=== PATIENT | female | born 1950 | race Caucasian/White ===

== ENCOUNTER → 2017-08-30 08:06 | Outpatient (CLI) | payer MEDICARE, OTHER, SELFPAY ==
--- NOTE | 2017-08-30 08:11 | BI_ITS ---
MAMMOGRAPHY - BILATERAL SCREENING REASON FOR EXAM: Female, 66 years old. Routine annual screening examination. PERTINENT HISTORY: NO FM HX , LOST 22#, LT UIQ BRUISE 1.25 YRS AGO TECHNIQUE: Digital bilateral breast isidro (3D mammographic acquisition) in the CC and MLO projections. 2-D mediolateral oblique (MLO) and craniocaudad (CC) views of both breasts were obtained. CAD: Full Field Digital Mammography with Computer Added Detection was performed. COMPARISON: 07/30/2016, 07/21/2015, 07/19/2014 FINDINGS: Breast Composition: There are scattered areas of fibroglandular density. There are no dominant masses or suspicious calcifications. No other significant abnormalities are identified. BI/SCREENING MAMM (CAD), BILAT IMPRESSION: Stable bilateral screening mammogram. Yearly follow-up mammogram recommended. (A) ASSESSMENT CATEGORY: BIRADS Category 2: Benign. A letter regarding these results will be sent to the patient by the facility within 30 days. Approximately 10% of breast cancers are not detected by mammography. A normal mammogram should not delay biopsy of a clinically suspicious abnormality. [id number] Electronically Signed: Ginette Price MD at 12:30 EDT Tel , Service support ,
== END ==
PROVIDERS: Family Provider Family Medicine; PCP Family Medicine; Visit Provider Obstetrics & Gynecology
DX: Z12.31 Encounter for screening mammogram for malignant neoplasm of breast (principal)
CPT/HCPCS: 77063; 77067

== ENCOUNTER → 2018-03-05 09:05 | Outpatient (CLI) | payer MEDICARE, OTHER, SELFPAY ==
--- NOTE | 2018-03-05 09:11 | BI_ITS ---
MAMMOGRAPHY - UNILATERAL DIAGNOSTIC: RIGHT BREAST REASON FOR EXAM: Female, 67 years old. Right breast discomfort for 4 weeks. PERTINENT HISTORY: Non-contributory. TECHNIQUE: Digital unilateral breast isidro (3D mammographic acquisition) in the CC and MLO projections. 2-D mediolateral oblique (MLO) and craniocaudad (CC) views of both breasts were obtained. CAD: Full Field Digital Mammography with Computer Added Detection was performed. COMPARISON: Comparison is made with prior study dated August 30, 2017 and July 30, 2016. FINDINGS: Breast Composition: There are scattered areas of fibroglandular density. There are no dominant masses or suspicious calcifications. Stable small right axillary lymph nodes. No other significant abnormalities are identified. There has been no significant change since the prior study. BI/DIAG MAMM W/CAD, UNILAT IMPRESSION: Stable unilateral diagnostic mammogram. With the patient's history of right breast discomfort, correlation with ultrasound is recommended. ASSESSMENT CATEGORY: BIRADS Category 0: Incomplete. Need additional imaging evaluation. A letter regarding these results will be sent to the patient by the facility within 30 days. Approximately 10% of breast cancers are not detected by mammography. A normal mammogram should not delay biopsy of a clinically suspicious abnormality. Electronically Signed: Indio Carrera MD at 12:29 EST Tel [phone], Service support ,
--- NOTE | 2018-03-05 10:28 | US_ITS ---
STUDY: ULTRASOUND BREAST - RIGHT REASON FOR EXAM: Female, 67 years old. Pain in the right breast. TECHNIQUE: Axial and longitudinal images of the RIGHT breast were performed with a high resolution ultrasound transducer. COMPARISON: Comparison is made with prior mammogram done earlier today. FINDINGS: RIGHT Breast: The upper lateral aspect of the right breast was examined by ultrasound. There is homogeneous fibroglandular tissue. No solid or cystic mass lesion is seen. US/Breast Limited Unilateral IMPRESSION: Unremarkable sonographic examination of the upper outer quadrant of the right breast. ASSESSMENT CATEGORY: BIRADS Category 1: Negative. A letter regarding these results will be sent to the patient by the facility within 30 days. Electronically Signed: Indio Carrera MD at 12:13 EST Tel [phone], Service support ,
--- OUTSIDE RECORDS SUMMARY | 2018-04-30 14:55 | XMS RPT_ITS ---
:1950 Author Organization [facility] Care Team Providers Name Role Phone SULAIMAN YOUNG DO D Attending Unavailable HECTOR DO, SULAIMAN D Primary Care Unavailable HECTOR DO SULAIMAN D Attending Unavailable HECTOR DO, SULAIMAN D Primary Care Unavailable HECTOR DO SULAIMAN D Attending Unavailable HECTOR DO, SULAIMAN D Primary Care Unavailable HECTOR DO SULAIMAN D Attending Unavailable HECTOR DO, SULAIMAN D Primary Care Unavailable HECTOR DO, SULAIMAN D Attending Unavailable HECTOR DO, SULAIMAN D Primary Care Unavailable CANELO ROWELL, DR. LUIS ALBERTO Serrato Attending Unavailable HECTOR DO, SULAIMAN D Primary Care Unavailable Laura Araujo Attending Unavailable Laura Araujo Referring Unavailable Hector Sulaiman Primary Care Unavailable Laura Araujo Attending Unavailable Hector, Sulaiman Primary Care Unavailable PROBLEMS PROBLEMS DATE TYPE CONDITION / CODE ATTENDING STATUS SOURCE 03/05/2018 Unknown N64.4 - Laura Araujo Active [facility] Mastodynia / Community N64.4(ICD-10) Hospital Repository 10/03/2017 Admitting Frequency of CANELO ALVA., Active [facility] Diagnosis micturition / DR. LUIS ALBERTO Molina R35.0(ICD-10) Repository 08/30/2017 Unknown Z12.31 - Laura Araujo Active [place] [facility] mammogram for Repository malignant neoplasm of breast / Z12.31(ICD-10) PROCEDURES PROCEDURES No Procedure Records FoundRESULTS RESULTS BREAST LIMITED Observed: 03/05/2018 Status: F Source: [place] UNILATERAL 10:28 AM [facility] H[facility]PITAL REPOSITORY [facility] Imaging Services [address] [place] [address] Breast Limited Unilateral MR#: [id number] Acct: [id number] Name: ROSALINA NOE Rep #: [id number] : 1950 F 67 From: Indio Carrera MD PCP: Sulaiman Young DO Status: REG CLI Study: Breast Limited Unilateral Date of Exam: 03/05/18 Exam# [id number] Ordering Dr: Laura Araujo MD STUDY: ULTRASOUND BREAST - RIGHT REASON FOR EXAM: Female, 67 years old. Pain in the right breast. TECHNIQUE: Axial and longitudinal images of the RIGHT breast were performed with a high resolution ultrasound transducer. COMPARISON: Comparison is made with prior mammogram done earlier today. FINDINGS: RIGHT Breast: The upper lateral aspect of the right breast was examined by ultrasound. There is homogeneous fibroglandular tissue. No solid or cystic mass lesion is seen. US/Breast Limited Unilateral IMPRESSION: Unremarkable sonographic examination of the upper outer quadrant of the right breast. ASSESSMENT CATEGORY: BIRADS Category 1: Negative. A letter regarding these results will be sent to the patient by the facility within 30 days. Electronically Signed: Indio Carrera MD at 12:13 EST Tel [phone], Service support , CC: Sulaiman Young DO; Laura Araujo MD Polisher And Buffer: Signed DIAG MAMM W/CAD, Observed: 03/05/2018 Status: F Source: DUSTIN UNILAT 9:12 AM [facility] REPOSITORY [facility] Imaging Services [address] [place] [address] DIAG MAMM W/CAD, UNILAT MR#: [id number] Acct: [id number] Name: ROSALINA NOE Rep #: [id number] : 1950 F 67 From: Indio Carrera MD PCP: Sulaiman Young DO Status: REG CLI Study: DIAG MAMM W/CAD, UNILAT Date of Exam: 03/05/18 Exam# [id number] Ordering Dr: Laura Araujo MD MAMMOGRAPHY - UNILATERAL DIAGNOSTIC: RIGHT BREAST REASON FOR EXAM: Female, 67 years old. Right breast discomfort for 4 weeks. PERTINENT HISTORY: Non-contributory. TECHNIQUE: Digital unilateral breast isidro (3D mammographic acquisition) in the CC and MLO projections. 2-D mediolateral oblique (MLO) and craniocaudad (CC) views of both breasts were obtained. CAD: Full Field Digital Mammography with Computer Added Detection was performed. COMPARISON: Comparison is made with prior study dated August 30, 2017 and July 30, 2016. FINDINGS: Breast Composition: There are scattered areas of fibroglandular density. There are no dominant masses or suspicious calcifications. Stable small right axillary lymph nodes. No other significant abnormalities are identified. There has been no significant change since the prior study. BI/DIAG MAMM W/CAD, UNILAT IMPRESSION: Stable unilateral diagnostic mammogram. With the patient's history of right breast discomfort, correlation with ultrasound is recommended. ASSESSMENT CATEGORY: BIRADS Category 0: Incomplete. Need additional imaging evaluation. A letter regarding these results will be sent to the patient by the facility within 30 days. Approximately 10% of breast cancers are not detected by mammography. A normal mammogram should not delay biopsy of a clinically suspicious abnormality. Electronically Signed: Indio Carrera MD at 12:29 EST Tel [phone], Service support , CC: Sulaiman Young DO; Laura Araujo MD Polisher And Buffer: Signed Observed: 10/03/2017 Status: F Source: [facility] 2:38 PM FOUNDATION REPOSITORY . MICRO - Microbiology PROCEDURE: Urine Culture [*1] SOURCE: Urine BODY SITE: COLLECTED DATE/TIME: 10/03/2017 14:38 EDT RECEIVED DATE/TIME: 10/03/2017 20:52 EDT START DATE/TIME: 10/03/2017 20:53 EDT FREE TEXT SOURCE: FINAL REPORTS Final Report [] Verified Date/Time/Personnel: 10/05/2017 08:27 EDT No growth at 48 hours. PRELIMINARY REPORTS Preliminary Report [] Verified Date/Time/Personnel: 10/04/2017 08:22 EDT No growth to date Performing Locations *1: This test was performed at: [facility], [address] [place] [address], [address] , [facility] Performed By: #### CUR #### [address] [address] SCREENING MAMM (CAD), Observed: 08/30/2017 Status: F Source: DUSTIN BILAT 8:12 AM [facility] REPOSITORY [facility] Imaging Services [address] [place] [address] SCREENING MAMM (CAD), BILAT MR#: [id number] Acct: [id number] Name: ROSALINA NOE Rep #: [id number] : 1950 F 66 From: Ginette Price MD PCP: Sulaiman Young DO Status: REG CLI Study: SCREENING MAMM (CAD), BILAT Date of Exam: 08/30/17 Exam# [id number] Ordering Dr: Laura Araujo MD MAMMOGRAPHY - BILATERAL SCREENING REASON FOR EXAM: Female, 66 years old. Routine annual screening examination. PERTINENT HISTORY: NO FM HX , LOST 22#, LT UIQ BRUISE 1.25 YRS AGO TECHNIQUE: Digital bilateral breast isidro (3D mammographic acquisition) in the CC and MLO projections. 2-D mediolateral oblique (MLO) and craniocaudad (CC) views of both breasts were obtained. CAD: Full Field Digital Mammography with Computer Added Detection was performed. COMPARISON: 07/30/2016, 07/21/2015, 07/19/2014 FINDINGS: Breast Composition: There are scattered areas of fibroglandular density. There are no dominant masses or suspicious calcifications. No other significant abnormalities are identified. BI/SCREENING MAMM (CAD), BILAT IMPRESSION: Stable bilateral screening mammogram. Yearly follow-up mammogram recommended. (A) ASSESSMENT CATEGORY: BIRADS Category 2: Benign. A letter regarding these results will be sent to the patient by the facility within 30 days. Approximately 10% of breast cancers are not detected by mammography. A normal mammogram should not delay biopsy of a clinically suspicious abnormality. [id number] Electronically Signed: Ginette Price MD at 12:30 EDT Tel , Service support , CC: Sulaiman Young DO; Laura Araujo MD Polisher And Buffer: Signed LIPID Collected: 08/22/2017 Status: F Source: [employer] 7:29 AM [facility] REPOSITORY TYPE CODE TESTS RESULT OUT OF REFERENCE UNITS RANGE LAB CHOL(LOINC 131-200 mg/dL ) Low Cholesterol 115 Result Comment: Cholesterol Reference Interval: Less than 200 Desirable 200-239 Borderline high risk 240 and above High risk LAB TRIG(LOINC) 40-150 mg/dL Triglycerides 89 Result Comment: Triglyceride Reference Interval: Less than 150 Normal 150-199 Borderline high risk 200-499 High risk 500 or higher Very high risk LAB HD(LOINC) 35-90 mg/dL HDL Cholesterol 53 Result Comment: HDL Reference Interval: Less than 40 Low - high risk 60 or above Optimal/lowers risk LAB LDL(LOINC) 0-130 mg/dL LDL Cholesterol 44 Result Comment: LDL is a calculated result and requires a 12-hr fast. LDL Reference Interval: Less than 100 Optimal 100-129 Near or above optimal 130-159 Borderline high risk 160-189 High risk 190 and above Very high risk Performed By: #### LIPID, CMP, GFR #### [address] [address] CMP Collected: 08/22/2017 Status: F Source: [employer] 7:29 AM [facility] REPOSITORY TYPE CODE TESTS RESULT OUT OF REFERENCE UNITS RANGE LAB GLU(LOINC) 80-115 mg/dL Glucose High Level 166 LAB NA(LOINC) 136-146 mEq/L Sodium Level 136 LAB K(LOINC) 3.5-5.1 mEq/L Potassium Level 4.4 LAB CL(LOINC) 98-107 mEq/L Chloride 104 LAB CO2(LOINC) 23-31 mEq/L CO2 27 LAB EBAL(LOINC mEq/L ) Electrolyte Balance 5.0 LAB BUN(LOINC) 7.0-18.0 mg/dL BUN 12.7 LAB CRE(LOINC) 0.6-1.2 mg/dL Creatinine Lvl (s) 0.7 LAB BC(LOINC) 7-27 ratio BUN/Creatinine 18 Ratio LAB CA(LOINC) 8.4-10.2 mg/dL Calcium Lvl 10.0 LAB PROT(LOINC 6.0-8.3 G/dL ) Total Protein 6.4 LAB ALB(LOINC) 3.4-4.8 G/dL Albumin Level 4.2 LAB GLB(LOINC) G/dL Globulin 2.2 LAB AG(LOINC) 1.1-2.5 ratio A/G Ratio 1.9 LAB BILT(LOINC 0.2-1.0 mg/dL ) Bili Total 0.5 LAB AP(LOINC) 40-135 IU/L Alk Phos 67 LAB AST(LOINC) 10-40 IU/L AST/SGOT 16 LAB ALT(LOINC) 10-35 IU/L ALT/SGPT 11 Performed By: #### LIPID, CMP, GFR #### [address] [place], [place] [address] .GFR Collected: 08/22/2017 Status: F Source: COLT [employer] 7:29 AM FOUNDATION REPOSITORY TYPE CODE TESTS RESULT OUT OF REFERENCE UNITS RANGE LAB GFRAA(LOINC ml/min/1.73 ) sqm GFR 95 [place] Result Comment: GFR Population mean for , Non- Americans Ages 20-29 = 116 mL/min/1.73 sq.m. Ages 30-39 = 107 mL/min/1.73 sq.m. Ages 40-49 = 99 mL/min/1.73 sq.m. Ages 50-59 = 93 mL/min/1.73 sq.m. Ages 60-69 = 85 mL/min/1.73 sq.m. Ages 70+ = 75 mL/min/1.73 sq.m. Chronic Kidney Disease: Less than 60 mL/min/1.73 square meters End Stage Renal Disease: Less than 15 mL/min/1.73 square meters LAB GFRNO(LOINC) ml/min/1.73sqm GFR Non- >60 Result Comment: GFR Population mean for , Non- Americans Ages 20-29 = 116 mL/min/1.73 sq.m. Ages 30-39 = 107 mL/min/1.73 sq.m. Ages 40-49 = 99 mL/min/1.73 sq.m. Ages 50-59 = 93 mL/min/1.73 sq.m. Ages 60-69 = 85 mL/min/1.73 sq.m. Ages 70+ = 75 mL/min/1.73 sq.m. Chronic Kidney Disease: Less than 60 mL/min/1.73 square meters End Stage Renal Disease: Less than 15 mL/min/1.73 square meters Performed By: #### LIPID, CMP, GFR #### [facility] [place] [address] [place], [place] [address] ALLERGIES ALLERGIES No Allergies Records FoundENCOUNTERS ENCOUNTERS ADMIT/DISCHARGE ACCOUNT NUMBER ADMITTING ENCOUNTER LOCATION SOURCE CLASS 03/05/2018 [id number] [facility] ding:OPBI Repository 10/03/2017/10/08/19 [id number] Ambulatory [facility] [address] [place] [address] ding:OLAB [facility] Repository 08/30/2017 [id number] Ambulatory [facility] ding:OPBI Repository 08/22/2017/08/23/19 [id number] Ambulatory [facility] [address] [place] [address] ding:DROP [facility] Repository 08/19/2017/08/20/19 [id number] Ambulatory [facility] [address] [place] [address] ding:DVST [facility] Repository 08/12/2017/08/13/19 [id number] Ambulatory [facility] [address] [place] [address] ding:DVST [facility] Repository 08/05/2017/08/06/19 [id number] Ambulatory [facility] [address] [place] [address] ding:DVST [facility] Repository 07/29/2017/07/30/19 [id number] Ambulatory [facility] [address] [place] [address] ding:DVST [facility] Repository PAYERS PAYERS ENCOUNTER GUARANTOR PAYER SUBSCRIBER SOURCE 03/05/2018 ROSALINA A Primary ROSALINA A [place] [id number] Insurance:[facility] [place] PART A BPolicy [id number] Number: Repository [address]Iue: [phone] [id number] [phone] () Date:2018-02-25 03/05/2018 Secondary ROSALINA A [place] Insurance:[facility] BECKETTDOB: [facility] FARMPolicy Number: [id number] Hospital [id number] Repository Date:[id number] [address] [place] [address]BA: 03/05/2018 Tertiary NOT GIVENUNK Dust[place] Insurance:SELF PAY [facility] Number: Effective Repository Date:2018-02-25 10/03/2017 ROSALINA A Primary ROSALINA A [facility] BECKETTDOB: Insurance:MEDICARE BECKETTDOB: [facility] PART BPolicy Number: [id number] Repository OGDEN [id number] [place], [place] Date:2017-10-03 - [place], [place] [address]Oaf: [phone] [id number] [id number]: Name:[address] (HP)Tel: [phone] Aaazoypzgykgdu LLCPO () (WP) [address] [address], 0000000 (WP) [place] [address]SG: 10/03/2017 Secondary ROSALINA A [facility] Number: [id number] Repository [id number] [place] Date:2017-10-03 - [place], [place] [id number] [address]Dbv: ([phone]) Name:[facility] [phone] [id number], [place] ()Tel: [phone]: (WP) [phone] 08/30/2017 ROSALINA A Primary ROSALINA A [place] [id number] Insurance:MEDICARE BECKETTDOB: [facility] DANVERS PART A BPolicy [id number], [place] Number: Repository [address]Fot: 330 [id number] [phone] () Date:2017-08-13 08/30/2017 Secondary ROSALINA A [place] Insurance[facility]: [facility] Number: [id number] Hospital [id number] Repository Date:[id number] [address] [place] [address]JW: 08/30/2017 Tertiary NOT GIVENUNK [place] Insurance:SELF PAY [facility] Number: Effective Repository Date:2017-08-13 08/22/2017 ROSALINA A Primary ROSALINA A [facility] BECKETTDOB: Insurance:MEDICARE BECKETTDOB: [facility] PART BPolicy Number: [id number] Repository [place] [id number], [place] Date:2017-08-22 [place], [place] [address]Tvs: [id number] [address]Zft: Name:[address] (HP)Tel: ([phone]) Administrators LLCPO (HP) (WP) [address] [address]Fyorkwbep, 000-0000 (WP) [place] [address]HY: 08/22/2017 Secondary ROSALINA A [facility] Insurance:[facility] Number: [id number] Repository [id number] O[place] Date:2017-08-22 [place], [place] [id number] [address]Dwg: ([phone]) Name:[facility] [phone] 690944Yzztet, [place] (HP)Tel: [phone]: (WP) [phone] 08/19/2017 ROSALINA A Primary ROSALINA A [facility] BECKETTDOB: Insurance:[facility]ICARE [facility]: [facility] PART BPolicy Number: [id number] Repository [place]GDEN [id number], [place] Date:2017-07-30 [place], [place] [address]Cmn: ([id number] [address]Hnh: Name:[facility] [phone] (HP)Tel: ([phone]) Administrators LLCPO (HP) (WP) [address] [address]Pyzotjnkd, 000-0000 (WP) [place] [address]QV: 08/19/2017 Secondary ROSALINA A [facility] Insurance:[facility] Number: [id number] Repository [id number] DANVERS Date:2017-07-30 [place], [place] [id number] [address]Abf: ([phone]) Name:[facility] Vivian [phone] 359[address]Wqtnez, [place] ()Tel: [phone]: [phone] 08/12/2017 ROSALINA A Primary ROSALINA A [facility] BECKETTDOB: Insurance:MEDICARE BECKETTDOB: [facility] PART BPolicy Number: [id number] Repository DAN[place] [id number], [place] Date:2017-07-30 [place], [place] [address]Aat: [phone] [id number] [address]Zak: Name:[address] ()Tel: ([phone]) Administrators LLCPO (HP) () [address] [address]Fjhkemjxc, 000-0000 () [place] [address]LC: 08/12/2017 Secondary [facility] BECKETTDOB: [facility] FARMPolicy Number: [id number] Repository [id number] O[place] Date:2017-07-30 [place], [place] 9518-53-05Lekz [address]Ifp: ([phone]) Name:[facility] Vivian [phone] 2895[address]Nxxova, [place] ()Tel: [phone]: () [phone] 08/05/2017 ROSALINA A [facility]: Insurance:MEDICARE BECKETTDOB: [facility] PART BPolicy Number: [id number] Repository DANVERS [id number], [place] Date:2017-07-30 [place], [place] [address]Hcp: [phone] [id number] [address]Jsl: Name:[address] ()Tel: ([phone]) Administrators LLCPO (HP) (WP) [address] [address]Hnfeqnkvy, 000-0000 (WP) [place] [address]IA: 08/05/2017 Secondary SLATER A [facility]: [id number] Repository [id number] DANVERS Date:2017-07-30 [place], [place] 5417-23-02Wbbn [address]Hru: ([phone]) Name:[address] [place] [address] (HP)Tel: [phone]: (WP) [phone] 07/29/2017 ROSALINA A Primary [facility] Insurance:MEDICARE BECKETTDOB: Foundation PART BPolicy Number: [id number] Repository DANVERS [id number] [place], [place] Date:2017-07-22 [place], [place] [address]Abu: ([phone] [id number] [phone]: Name:[facility] 6[address] (HP)Tel: ([phone]) Administrators LLCPO (HP) (WP) [address] [address]Jmrjbrwdn, 000-0000 (WP) [place] [address]WD: 07/29/2017 Secondary SLATER A [facility]: [id number] Repository [id number] OGDEN Date:2017-07-22 [place], [place] 4795-59-29Pumc [address]Kgn: ([phone]) Name:[facility] [phone] [id number], [place] (HP)Tel: [phone]: (WP) [phone]
== END ==
PROVIDERS: Family Provider Family Medicine; PCP Family Medicine; Visit Provider Obstetrics & Gynecology
DX: N64.4 Mastodynia (principal)
CPT/HCPCS: 76642; 77061; 77065; G0279

== ENCOUNTER → 2018-09-02 08:03 | Outpatient (CLI) | payer MEDICARE, OTHER, SELFPAY ==
--- NOTE | 2018-09-02 08:07 | BI_ITS ---
MAMMOGRAPHY - BILATERAL SCREENING REASON FOR EXAM: Female, 67 years old. Routine annual screening examination. PERTINENT HISTORY: Non-contributory. TECHNIQUE: Digital bilateral breast isidro (3D mammographic acquisition) in the CC and MLO projections. 2-D mediolateral oblique (MLO) and craniocaudad (CC) views of both breasts were obtained. CAD: Full Field Digital Mammography with Computer Added Detection was performed. COMPARISON: Comparison is made with prior study dated August 30, 2017 and July 30, 2016. FINDINGS: Breast Composition: There are scattered areas of fibroglandular density. There are no dominant masses or suspicious calcifications. Stable asymmetry of breast tissue when more breast tissue seen in the upper outer quadrant of the right breast as compared to the left side. No other significant abnormalities are identified. There has been no significant change since the prior study. BI/SCREENING MAMM (CAD), BILAT IMPRESSION: Stable bilateral screening mammogram. Yearly follow-up mammogram recommended. (A) ASSESSMENT CATEGORY: BIRADS Category 2: Benign. A letter regarding these results will be sent to the patient by the facility within 30 days. Approximately 10% of breast cancers are not detected by mammography. A normal mammogram should not delay biopsy of a clinically suspicious abnormality. [id number] Electronically Signed: Indio Carrera, at 13:44 EDT , Service support ,
== END ==
PROVIDERS: Family Provider Family Medicine; PCP Family Medicine; Referring Provider Obstetrics & Gynecology; Visit Provider Obstetrics & Gynecology
DX: Z12.31 Encounter for screening mammogram for malignant neoplasm of breast (principal)
CPT/HCPCS: 77063; 77067

== ENCOUNTER → 2019-10-13 10:37 | Outpatient (CLI) | payer MEDICARE, OTHER, SELFPAY ==
--- NOTE | 2019-10-13 10:42 | BI_ITS ---
MAMMOGRAPHY - BILATERAL SCREENING REASON FOR EXAM: Female, 69 years old. Routine annual screening examination. PERTINENT HISTORY: Non-contributory. TECHNIQUE: Digital bilateral breast glen (3D mammographic acquisition) in the CC and MLO projections. 2-D mediolateral oblique (MLO) and craniocaudad (CC) views of both breasts were obtained. CAD: Full Field Digital Mammography with Computer Added Detection was performed. COMPARISON: Comparison is made with prior study dated September 02, 2018 and March 05, 2018. FINDINGS: Breast Composition: The breasts are almost entirely fatty. There are no dominant masses or suspicious calcifications. Stable asymmetry of breast tissue where more breast tissue is seen in the upper outer quadrant of the right breast as compared to the left side. No other significant abnormalities are identified. There has been no significant change since the prior study. BI/SCREEN MAMM (CAD) W/GLEN BILAT IMPRESSION: Stable bilateral screening mammogram. Yearly follow-up mammogram recommended. (A) ASSESSMENT CATEGORY: BIRADS Category 2: Benign. A letter regarding these results will be sent to the patient by the facility within 30 days. Approximately 10% of breast cancers are not detected by mammography. A normal mammogram should not delay biopsy of a clinically suspicious abnormality. [id number] Electronically Signed: Indio Carrera, at 12:16 EDT , Service support ,
== END ==
PROVIDERS: PCP Student in an Organized Health Care Education/Training Program; Referring Provider Student in an Organized Health Care Education/Training Program; Visit Provider Student in an Organized Health Care Education/Training Program
DX: Z12.31 Encounter for screening mammogram for malignant neoplasm of breast (principal)
CPT/HCPCS: 77063; 77067

== ENCOUNTER → 2020-10-18 15:06 | Outpatient (CLI) | payer MEDICARE, OTHER, SELFPAY ==
--- NOTE | 2020-10-18 15:10 | BI_ITS ---
MAMMOGRAPHY - BILATERAL SCREENING REASON FOR EXAM: Female, 70 years old. Routine annual screening examination. PERTINENT HISTORY: Non-contributory. TECHNIQUE: Digital bilateral breast glen (3D mammographic acquisition) in the CC and MLO projections. 2-D mediolateral oblique (MLO) and craniocaudad (CC) views of both breasts were obtained. CAD: Full Field Digital Mammography with Computer Added Detection was performed. COMPARISON: Comparison is made with prior study dated 10/13/2019 and 09/02/2018. FINDINGS: Breast Composition: The breasts are almost entirely fatty. There are no dominant masses or suspicious calcifications. Once again, there is stable asymmetry of breast tissue where more breast tissue is seen in the upper outer quadrant of the right breast as compared to the left side. There is a 1.7 cm lymph node in the right axillary region. No other significant abnormalities are identified. There has been no significant change since the prior study. BI/SCRN MAMM (CAD)W/GLEN BILAT IMPRESSION: Stable bilateral screening mammogram. Yearly follow-up mammogram recommended. (A) ASSESSMENT CATEGORY: BIRADS Category 2: Benign. A letter regarding these results will be sent to the patient by the facility within 30 days. Approximately 10% of breast cancers are not detected by mammography. A normal mammogram should not delay biopsy of a clinically suspicious abnormality. [id number] Electronically Signed: Indio Carrera MD at 8:30 EDT , Service support ,
--- NOTE | 2020-10-18 15:23 | BD_ITS ---
STUDY: DUAL ENERGY X-RAY ABSORPTIOMETRY / DXA REASON FOR EXAM: Female, 70 years old. OSTEO. Patient is postmenopausal. TECHNIQUE: Bone Mineral Density (BMD) measurements of lumbar spine and bilateral hips were obtained. COMPARISON: Comparison is made with prior examination dated 07/29/2012. FINDINGS: Lumbar Spine (L1-L4): g/cm2 (1.082) / T-score (0.3) / Z-score (2.3) Findings are suggestive of normal bone density with a low fracture risk. Left Femur Total: g/cm2 (0.641) / T-score (-2.5) / Z-score (-1.0) Left Femoral Neck: g/cm2 (0.657) / T-score (-1.7) / Z-score (0) Right Femur Total: g/cm2 (0.596) / T-score (-2.8) / Z-score (-1.4) Right Femoral Neck: g/cm2 (0.662) / T-score (-1.7) / Z-score (0.1) The T-Scores on the most recent prior examination were: Lumbar Spine (L1-L4): There has been worsening of bone density since the previous examination. Left Femur Total: which represents a worsening of 17.8%. Right Femur Total: which represents a worsening of 24.1%. BD/Dexa Bone Density Study IMPRESSION: The patient is considered osteoporotic as outlined below according to World Lemuel Organization (WHO) criteria with a high fracture risk. There has been worsening of bone density since the previous examination. Reference Information: The T-score is the number of standard deviations above or below the standard which is normal for young adults at their peak bone mineral density. The World Health Organization (WHO) interprets the T-scores as follows: Above -1 Normal bone density Between -1 and -2.5 Osteopenia Equal to / or below -2.5 Osteoporosis As a practical clinical guideline, osteopenia may be graded as follows: Mild -1 through -1.5 Moderate -1.6 through -2.0 Severe -2.1 through -2.4 The Z-score is the number of standard deviations above or below age-matched controls. A Z-score of less than -1.5 would be considered abnormal. References: 1. NIH Osteoporosis and Related Bone Diseases www osteo.org 2. International Society for Clinical Densitometry www iscd.org 3. National Osteoporosis Foundation www nof.org Electronically Signed: Indio Carrera MD at 9:22 EDT , Service support ,
== END ==
PROVIDERS: PCP Student in an Organized Health Care Education/Training Program; Visit Provider Student in an Organized Health Care Education/Training Program
DX: Z12.31 Encounter for screening mammogram for malignant neoplasm of breast (principal); Z13.820 Encounter for screening for osteoporosis; M81.0 Age-related osteoporosis without current pathological fracture; Z78.0 Asymptomatic menopausal state
CPT/HCPCS: 77063; 77067; 77080

== ENCOUNTER → 2020-12-23 14:43 | Outpatient (CLI) | payer MEDICARE, OTHER, SELFPAY ==
[2020-12-23 17:36] LABS: CRP 3.36 mg/L (0.0-3.0)
[2020-12-26 16:08] LABS: Endomysial Antibody IgA Negative (Negative)
[2020-12-26 17:03] LABS: Immunoglobulin A 150 mg/dL (87-352); t-Transglutaminase IgA <2 U/mL (0-3)
== END ==
PROVIDERS: PCP Student in an Organized Health Care Education/Training Program; Referring Provider Internal Medicine Gastroenterology; Visit Provider Internal Medicine Gastroenterology
DX: R10.9 Unspecified abdominal pain (principal); R19.7 Diarrhea, unspecified
CPT/HCPCS: 36415; 82784; 83516; 86140; 86255

== ENCOUNTER → 2021-09-20 | Outpatient (CLI) | payer MEDICARE, OTHER, SELFPAY ==
--- NOTE | 2021-09-20 12:44 | CT_ITS ---
STUDY: CT SCAN OF LOWER EXTREMITY RIGHT. [facility] protocol. REASON FOR EXAM: Female, 70 years old. PRE OP FOR KNEE REPLACEMENT RADIATION DOSAGE (If Supplied By Facility): CTDIvol = ( 19.69 ) mGy, DLP = ( 2529.39 ) mGycm. Individualized dose optimization techniques were used for this CT.? TECHNIQUE: Multiple axial tomographic images of the right lower extremity were obtained without intravenous contrast administration. Coronal and sagittal reconstruction was obtained as well. COMPARISON: None. FINDINGS: Mild degree of joint space narrowing of the hip joint. No bony destruction is seen. Multiple images of the knee joint were obtained. There is a marked degree of joint space narrowing involving the medial compartment of the knee joint with degenerative spur formation of the medial femoral condyle and medial tibial plateau. There is also evidence of degenerative spur formation along the distal lateral femoral condyle. Moderate degree of joint space narrowing and osteoarthritis of the patellofemoral joint. There is a 3.1 cm x 1.6 cm ossification in the posterior popliteal fossa suggestive of a intra-articular loose body or osteochondromatosis. Imaging of the ankle joint was obtained. No significant abnormality is seen. CT/Extremity Lower without Contra IMPRESSION: Marked degree of joint space narrowing with degenerative spur formation along the medial compartment of the knee joint as described. Moderate degree of osteoarthritis of the patellofemoral joint. 3.1 cm x 1.6 cm ossification in the popliteal fossa suggestive of possible loose body versus osteochondromatosis. Electronically Signed: Indio Carrera MD at 13:22 EDT ,
== END | disposition home or self-care (01) ==
LOC: CT 12:27
PROVIDERS: Visit Provider Orthopaedic Surgery
DX: M17.11 Unilateral primary osteoarthritis, right knee (principal)
CPT/HCPCS: 73700

== ENCOUNTER 2021-10-02 15:58 | Observation (INO) | payer MEDICARE, OTHER, SELFPAY ==
[2021-09-20 13:23] LABS: Absolute Lymphocyte Count 1.87 X10^3/uL (0.83-4.51); Absolute Neutrophil Count 5.2 X10^3/uL (2.0-7.7); Basophil# 0.05 X10^3/uL; Basophil% 0.6 % (0-1); Eosinophil# 0.12 X10^3/uL; Eosinophils% 1.5 % (0-5); Hematocrit 40.8 % (37-47); Hemoglobin 13.5 g/dL (12.0-15.0); Lymphocyte # 1.87 X10^3/ul (0.83-4.51); Lymphocyte % 23.7 % (19-41); Mean Corp Hgb Conc 33.1 g/dL (32-36); Mean Corpuscular Hgb 29.9 pg (27.0-32.0); Mean Corpuscular Volume 90.5 fL (81-99); Mean Platelet Vol. 10.2 fl (6.2-12.0); Monocyte# 0.61 X10^3/uL; Monocyte% 7.7 % (0-10); NRBC Flagged by Analyzer 0 % (0-5); Neutrophil # 5.23 X10^3/uL (2.7-7.7); Neutrophil % 66.4 % (47-70); Platelet Count 260 K/mm3 (150-450); RBC Distribution Width CV 12.4 % (11.6-14.6); RBC Distribution Width SD 40.6 fl (35.1-43.9); Red Blood Count 4.51 M/mm3 (4.2-5.4); White Blood Count 7.9 K/mm3 (4.4-11.0)
[2021-09-20 13:40] LABS: Albumin, Serum 3.8 g/dL (3.2-5.0)
[2021-09-20 13:44] LABS: Magnesium 1.6 mg/dL (1.6-2.6)
[2021-09-20 13:50] LABS: Hemoglobin A1c 7.4 % (3.8-5.6)
[2021-10-02] VITALS (11 sets, daily range): BP systolic 99–141; BP diastolic 50–89; PULSE 45–90; RESP 16–18; TEMP 36–36.6; O2SAT 93–100; BMI 34.4
[2021-10-02 07:50] LABS: Bedside Glucose 277 mg/dL (74-106)
[2021-10-02] MEDS: Acetaminophen 500 MG Tablet 1000 MG PO ×2 (08:20→15:51)
[2021-10-02] MEDS: Gabapentin 600 MG Tablet PO (08:20)
[2021-10-02] MEDS: Magnesium 2 GM IV (08:20)
[2021-10-02] MEDS: Insulin Lispro 100 UNIT/ML INSULN.PEN SC (08:21)
[2021-10-02] MEDS: Lactated Ringers 1,000 ML 15 ML IV (08:30)
--- NOTE | 2021-10-02 08:31 | EKG12_ITS ---
Test Reason : PRE-OP Blood Pressure : / mmHG Vent. Rate : 072 BPM Atrial Rate : 105 BPM P-R Int : 154 ms QRS Dur : 084 ms QT Int : 382 ms P-R-T Axes : 071 008 057 degrees QTc Int : 418 ms Sinus tachycardia with Blocked Premature atrial complexes Otherwise normal ECG When compared with ECG of 07-MAR-2001 08:56, Premature atrial complexes are now Present Confirmed by RASHMI ALVA, RUBEN ([id number]), scientific editor [facility] [place] ([id number]) on 10/10/2021 9:40:53 AM Referred By: Faizan Holliday Confirmed By:MARCUS CARABALLO MD
--- NOTE | 2021-10-02 09:24 | RAD_ITS ---
STUDY: X-RAY - RIGHT KNEE REASON FOR EXAM: Female, 71 years old. Post op -- AP and Lateral xray of operative knee in PACU TECHNIQUE: 2 view(s) of the knee. COMPARISON: None. FINDINGS: Normal visualized distal femur. Normal visualized proximal tibia and fibula. Normal proximal tibiofibular articulation. The patient is status post total knee replacement. There is good alignment. Postoperative soft tissue changes. RAD/Knee 1 or 2 Views IMPRESSION: Status post total knee replacement. There is good alignment. Postoperative soft tissue changes. Electronically Signed: Indio Carrera MD at 12:43 EDT ,
[2021-10-02] MEDS: Cefazolin 2 GM in 0.9% Normal Saline 100 ML IV (09:59)
--- NOTE | 2021-10-02 10:00 | KNEE_PTH ---
PATIENT: ROSALINA NOE LOC: MS3 U#:[id number] AGE/SX: 71/F [place] [facility] [place]: Dr. Faizan Holliday DO : 1950 BED: 1 DIS: 10/03/2021 SPEC #: [id number] RECD: 10/02/21 12:20 STATUS: TIANNA RESamantha #: [id number] TONY: 10/02/21 10:[address]: Faizan Holliday DEPT: SURGICAL PATHOLOGY RECD BY: Desirae Casey ENTERED: 10/02/21 13:05 SP TYPE: TOTAL KNEE OTHR DR: Dr. Gabriela Meredith DO Tissues: Knee, NOS Procedures: Decalcification bone/plaque Surgery Specimen Level IV HEADER OPERATION: ERAS, total knee replacement robotic arm assist PRE-OP DIAGNOSIS: Osteoarthritis right knee TISSUE SUBMITTED: Bone and tissue right knee MICROSCOPIC DIAGNOSIS Bone and tissue of right knee, total knee resection: Severe degenerative joint disease. AM:stacie 10/04/2021 MICROSCOPIC DESCRIPTION Slides are reviewed. GROSS DESCRIPTION Received is one container designated bone and soft tissue right knee. The specimen consists of multiple fragments of tello-yellow bone measuring in aggregate 12 x 10 x 4 cm. A piece of bone consistent with loose body is also noted measuring 2.5 x 2 x 1.5 cm. No soft tissue is identified. A number of bony fragments contain articular surfaces consistent with tibial plateau and femoral condyle and displaying prominent osteophyte formation, eburnation, and bone erosion. Operative Supervisor sections are submitted in two cassettes after decalcification. Cassette 1 contains the loose body. / SJ:stacie 10/02/2021 TC:5 CPT: 72615, 46074
[2021-10-02] MEDS: TXA 1000mg in NS100 100ml (IVPB at Incision) 660 MG IV (10:13)
[2021-10-02] MEDS: TXA 1000mg in NS100 100ml (IVPB at Closure) 660 MG IV (11:18)
--- NOTE | 2021-10-02 11:23 | PCM.OPRPT ---
Report of Operation Date of Procedure: 10/02/21 Pre-Operative Diagnosis: OA right knee Post-Operative Diagnosis: same Surgery/Procedure Performed:: Right TKR Description of Surgical Findings:: Report of Operation Date of Procedure: 10/02/2021 Preoperative Diagnosis: [right ] knee primary osteoarthritis Postoperative Diagnosis: [right ] knee primary osteoarthritis Operation: Robotic Assisted Knee Total Arthroplasty, [right ] knee Surgeon: Dr Faizan Holliday DO Electric Car Operator: Maykel Ling PA-C Anesthesia: spinal Anesthesiologist: Tom San M.D. Findings: Stable knee with good patella tracking Specimen(s): Bony cuts Complications: No intraoperative complications Estimated Blood Loss: 20 cc IV Fluids: 1000 cc crystalloid Implants Used: 1. Helio Triathlon press-fit CR size 5 femur 2. [place] Triathlon size 4 tibia 3. 32 mm patella 4. 11 mm CS polyethylene Brief History Operative Indications: [ (71 y/o female) ] with history of [ right ] knee osteoarthrosis with radiographic findings with loss of joint space, osteophyte formation and subchondral sclerosis. Failed conservative measures as mentioned in the H&P. Discussion of total knee arthroplasty as well as risk and benefits were discussed with the patient including but not limited to blood loss, DVTs, PEs, neurovascular damage, general risk of anesthesia including loss of life, and stiffness or instability were also discussed with the patient. Patient demonstrated understanding and was able to sign informed consent. Procedure: On the date of procedure, patient's [ right ] lower extremity was marked in the preoperative area. The patient was then taken back to the operating room where that patient was placed on the table in the supine position. All bony prominences were identified and well-padded. Anesthesia assumed control of the C-spine and airway throughout the remainder of the procedure. A tourniquet was placed on the [right ] upper thigh and the leg was prepped in a sterile fashion. The surgeon then scrubbed at this time. Upon reentering the room, the [right ] lower extremity was draped in a standard orthopedic fashion. A timeout was then called and everyone agreed upon the side, the site, the procedure to be performed, patient's identity and antibiotics given. Esmarch bandage was used to exsanguinate the extremity and the tourniquet was placed up to 250 mmHg with the knee in flexion. A midline skin incision was made and a sharp dissection was taken down through skin, subcutaneous tissue and fat. The standard medial parapatellar incision was made and the patella was subluxed laterally. An appropriate deep MCL release was done and the fat pad was resected. Our attention was then directed to the patella. The patella was everted and a flat resection was made. The knee was then flexed up and 2 femoral pins were placed inside the incision and 2 tibial pins were placed outside the incision in the medial tibia bicortically. Once this was completed, the 2 checkpoints in the femur and tibia were placed. Knee was then flexed up and the bony landmarks were registered. Once the was completed, the knee taken through range of motion and manually stressed allowing us to plan for an appropriate tibial cut. The robotic arm was brought into the field sterilely and checkpoint and saw were registered. Based on the patient's deformity, the tibial cut was made in [ 2 degrees varus ]. At this time, the tensioner was then placed in the joint and ligament tension was checked at 90 degrees and full extension. Based on the patient's ligamentous tension, appropriate adjustments were made to the operative plan and ligament releases were done. Once we were happy with our operative plan with balanced flexion and extension gaps, our attention was directed to the femur. The robot was brought into the field sterilely and registered. Posterior condylar cuts, anterior chamfer cuts and anterior cuts were appropriately made for a [ size 5 ] femur. When these were completed, the saws were switched out in the distal femoral and posterior chamfer cuts were made. Protecting the soft tissue throughout this time. A [size 4 ] base plate was selected. The knee was flexed to 90 degrees and soft tissues and posterior osteophytes were removed from the joint. 40 cc of the periarticular injection was injected into the posterior medial corner of the joint. The appropriate trials were then placed on the femur and tibia. A trial polyethylene was trialed to ensure proper balancing and stability of the knee. The appropriate tibial internal rotation was then marked with a bovie. Our attention was then directed to the patella. The lug holes were drilled and the patella trial was placed. Patellar tracking was checked and deemed appropriate. Once we were happy, lug holes were drilled for the femur and trial components were removed. The tibia was subluxed and pinned into place and the keel was punched and drilled appropriately. Final components were verified and opened. The wound was copiously irrigated with normal saline. The components were impacted into place with the tibia, femur and finally the patella. The trial poly component was placed and the knee was placed in full extension. The tracking, alignment and balance were verified and a [11 mm CS ] polyethylene component was placed. Once the final components were placed an Irrisept lavage was performed and the wound was copiously irrigated with normal saline solution and the periarticular injection was given. the wound was closed in a layer-anand fashion using #1 vicryl interrupted sutures for the arthrotomy, 2-0 interrupted vicryl suture for the subcuticular layer and moris for final skin closure. A sterile compressive dressing was then placed. The patient was then awakened from anesthesia, transferred to the [facility] and transferred to the PACU for recovery. My physician graduate research assistant was a vital part of this case. He was important in appropriate retraction during the case, and protection of soft tissues during bony cuts. His intimate knowledge of the case and my steps aided in safe and expedient completion of the procedure as well as appropriate position of the leg during the case. He was also vital in assisting with closure under my direct supervision. Due to the complexity of this case, robotic arm was used to assist in the surgery to improve accuracy and clinical outcomes. Post-op Plan: DVT ppx; ASA 81 mg BID, thigh high compression stockings Follow up: in office in 2 weeks for wound check PT: to start POD #0 at hospital, outpatient PT should be arranged. Preoperative antibiotic: Clindamycin 900 mg IV Faizan Holliday DO Surgeon: Faizan Holliday magnetic resonance imaging director: Maykel Ling Type of Anesthesia: Spinal Anesthesiologist: Tom San Estimated Blood Loss (mL): 20 cc Fluids Replaced: 1000 cc crystalloid Admit VTE Documentation VTE Present on Admission: No VTE Mechan Device Prophylaxis: SCD's and Thigh High NEVILLE Hose VTE Pharm Prophylaxis ordered?: Yes
[2021-10-02] MEDS: Lactated Ringers 1,000 ML 999 ML IV (11:30)
[2021-10-02 12:10] LABS: Bedside Glucose 120 mg/dL (74-106)
[2021-10-02] MEDS: Lactated Ringers 1,000 ML 125 ML IV (13:02)
[2021-10-02] MEDS: Ondansetron 4 MG/2 ML Vial IV (14:20)
[2021-10-02] MEDS: proMETHazine 25 MG/ML Syringe 12.5 MG IM (15:49)
[2021-10-02] MEDS: Ipratropium Bromide 0.06% NASAL SPRAY 2 SPRAY NASAL ×2 (15:50→21:51)
[2021-10-02] MEDS: hydroCHLOROthiazide 25 MG Tablet PO (15:50)
[2021-10-02] MEDS: Clindamycin 600 MG/50 ML BAG 100 MG IV ×2 (15:50→21:50)
[2021-10-02] MEDS: Calcium Carb/Vitamin D 1 TABLET Tablet PO (17:59)
[2021-10-02] MEDS: Aspirin 81 MG TAB.CHEW PO (17:59)
[2021-10-02] MEDS: metFORMIN (XR) 500 MG Tablet 1000 MG PO (17:59)
[2021-10-02] MEDS: Senna/Docusate Sodium 1 Tablet 2 TABLET PO (21:51)
[2021-10-02] MEDS: Atorvastatin Calcium 10 MG Tablet PO (21:51)
[2021-10-03] MEDS: Acetaminophen 500 MG Tablet 1000 MG PO ×2 (00:57→08:32)
[2021-10-03 01:30] VITALS: BP 101/52; PULSE 72; RESP 16; TEMP 36.2; O2SAT 95
[2021-10-03] MEDS: Clindamycin 600 MG/50 ML BAG 100 MG IV (04:13)
[2021-10-03 06:00] VITALS: BP 97/66; PULSE 79; RESP 16; TEMP 36.5; O2SAT 95
[2021-10-03 06:09] LABS: Hematocrit 33.5 % (37-47); Mean Corp Hgb Conc 32.8 g/dL (32-36); Mean Corpuscular Volume 91.3 fL (81-99); Platelet Count 199 K/mm3 (150-450); RBC Distribution Width CV 12.5 % (11.6-14.6); RBC Distribution Width SD 41.7 fl (35.1-43.9); Red Blood Count 3.67 M/mm3 (4.2-5.4); White Blood Count 10.1 K/mm3 (4.4-11.0)
[2021-10-03 06:37] LABS: Anion Gap 6 (5-15); BUN 11 mg/dL (7-18); BUN/Creat Ratio 12.8 RATIO (10-20); Chloride 104 mmol/L (98-107); Creatinine, Serum 0.86 mg/dL (0.55-1.02); EST Glomerular Filtration Rate 69 mL/min (>60); Est Glom Filt Rate - Afr Amer 84 mL/min (>60); Estimated Creatinine Clearance 59.19 ml/min; Glucose 254 mg/dL (74-106); Sodium Level 136 mmol/L (136-145)
[2021-10-03 07:30] LABS: Bedside Glucose 219 mg/dL (74-106)
--- NOTE | 2021-10-03 07:38 | PCM.PN.ORT ---
Subjective Subjective Patient sitting at bedside eating Jell-O. Patient states her pain has been very well managed. Patient denies chest pain, shortness of breath, calf pain, nausea vomiting. Patient is anticipating discharge to [facility] for postop rehab. Patient has no other complaints at this time. Objective Data Objective Data Vital Signs: Vital Signs Temp Pulse Resp BP Pulse Ox 97.7 F L 79 16 97/66 95 10/03/21 06:00 10/03/21 06:00 10/03/21 06:00 10/03/21 06:00 10/03/21 06:00 Oxygen Flow Rate (L/min) 4 Oxygen Delivery Method Room Air Weight: 99.7 kg Body Mass Index (BMI) 34.4 Intake & Output: Intake and Output for Last 24 Hours 10/01/21 10/02/21 10/03/21 23:59 23:59 23:59 Intake Total 3534 / 3534 50 / 50 Balance 3534 / 3534 50 / 50 Lab / Micro Data Result Diagrams: 10/03/21 05:15 10/03/21 05:15 Labs: Laboratory Results - last 24 hr 10/02/21 07:45: POC Glucose 277 H 10/02/21 12:05: POC Glucose 120 H 10/03/21 05:15: WBC 10.1, RBC 3.67 L, Hgb 11.0 L, Hct 33.5 L, MCV 91.3, MCH 30.0, MCHC 32.8, RDW Std Deviation 41.7, RDW Coeff of Ranjith 12.5, Plt Count 199, MPV 11.0 10/03/21 05:15: Sodium 136, Potassium 4.0, Chloride 104, Carbon Dioxide 26.0, Anion Gap 6, BUN 11, Creatinine 0.86, Estim Creat Clear Calc 59.19, Est GFR (MDRD) Af Amer 84, Est GFR (MDRD) Non-Af 69, BUN/Creatinine Ratio 12.8, Glucose 254 H, Calcium 9.0 10/03/21 07:25: POC Glucose 219 H Micro: Microbiology 09/20/21 13:02 Swab (Method) Nasal Screen MRSA/MSSA - Final Radiography Diagnostic Testing: Radiology Impression Knee X-Ray 10/02/21 09:24 IMPRESSION: Status post total knee replacement. There is good alignment. Postoperative soft tissue changes. Electronically Signed: Indio Carrera MD at 12:43 EDT , Physical Exam Narrative Patient sitting comfortably at bedside, alert. No respiratory distress, speaking in full sentences. Patient has good motion of the upper extremities without limitations. Right knee is cool to touch nonerythematous. Dressings clean dry intact. No calf tenderness. Neurovascular is otherwise intact. Patient is afebrile. Patient is mildly hypotensive but is asymptomatic. Const alert and oriented x3 Eyes PERRL Resp normal respiratory effort Effort and Inspection: able to speak in complete sentences Cardio regular rate Neuro CN's II-XII intact bilaterally Assessment & Plan Assessment/Plan (1) Status post total right knee replacement not using cement: PLAN: 1. Continue all pain medications as prescribed 2. Aspirin 81 mg 1 p.o. every 12 hours x30 days for postop DVT prophylaxis 3. Encourage incentive spirometry 4. Weight-bear as tolerated with walker continue physical therapy 5. Discharge to [facility] when clear with insurance 6. Follow-up with doug Miramontes in 2 weeks as scheduled, see pink sheet 7. Remove moris 10/16/2021 8. Shower 10/06/2021
--- NOTE | 2021-10-03 07:45 | EX.PCM.DISCH ---
Discharge Instructions Diet Discharge Diet: No restrictions Activity Discharge Activity: Return to Normal Activity, May Not Drive and May Shower May shower in (days): 3 May resume sexual activity in: No Restrictions Ice area for (Minutes): 30 Weight Bearing Status: Weight bearing as tolerated Keep extremity elevated above heart level: Operative Extremity Dressing / Incision Call your doctor if your incision/area has: Continuous Slow Oozing, Sudden Increased Bleeding, Increased Pain/ Swelling, Increased Redness, Foul Smelling Discharge and Swelling at the incision site Call your doctor if you observe: Fever of 101 or Higher, Coldness, Increased Pain and Change in Color Change Dressing in: 6 days Remove Dressing in: leave in place till F/U Additional Dressing/Incision Instructions:: Staple removal 10/16/2021 Follow Up Care Test Results: Test results from this visit will be discussed in further detail at your follow-up appointment, if applicable. Discharge Plan Admission Admit Date/Time: 10/02/21 15:58 Primary Reason for Your Visit: Right total knee arthroplasty Attending Provider: Faizan Holliday Primary Care Provider: Gabriela Meredith Discharge Orders/Prescriptions Prescriptions: New acetaminophen 500 mg Tablet 1,000 mg PO Q8H 30 Days Qty: 180 0RF aspirin 81 mg Tablet,Chewable 81 mg PO BIDCM 30 Days Qty: 60 0RF oxycodone 5 mg Tablet 5 - 10 mg PO Q4H PRN PRN (Reason: Pain Score 4-10) 7 Days Qty: 56 0RF Continued omeprazole 40 mg capsule,delayed release(DR/EC) 40 mg PO DAILY glimepiride 1 mg tablet 1 mg PO DAILY alendronate 35 mg tablet 35 mg PO QWEEK Label Comments: TAKE 1 TABLET BY MOUTH ONCE WEEKLY hydrochlorothiazide 25 mg tablet 25 mg PO DAILY ipratropium bromide 42 mcg (0.06 %) spray,non-aerosol 2 spray INTRANASAL BID metformin 500 mg tablet extended release 24 hr 1,000 mg PO BID coenzyme Q10 [CoQ-10] 100 mg Capsule 100 mg PO BID rosuvastatin 5 mg tablet 5 mg PO QHS calcium carbonate-vitamin D3 [Calcium 600 + D(3)] 600 mg-10 mcg (400 unit) Tablet 1 tab PO BID Probiotic 10 billion cell Capsule 10,000 mmu cells PO DAILY albuterol sulfate [Ventolin HFA] 90 mcg/actuation Hfa Aerosol Inhaler 2 puff INHALATION Q6H PRN (Reason: ASTHMA) Referrals / Follow Up: Gabriela Meredith DO [Primary Care Provider] - Disposition Disposition (needs filled in before D/C Order can be placed): [facility]
[2021-10-03] MEDS: Glimepiride 1 MG Tablet PO (08:31)
[2021-10-03] MEDS: Aspirin 81 MG TAB.CHEW PO (08:31)
[2021-10-03] MEDS: Calcium Carb/Vitamin D 1 TABLET Tablet PO (08:31)
[2021-10-03] MEDS: metFORMIN (XR) 500 MG Tablet 1000 MG PO (08:31)
[2021-10-03] MEDS: 0.9% Saline Lock 10 ML Syringe IV (08:32)
[2021-10-03 08:37] VITALS: BP 102/57; PULSE 72; RESP 16; TEMP 36.8; O2SAT 96
[2021-10-03] MEDS: Pantoprazole Sodium 40 MG Tablet PO (10:32)
[2021-10-03] MEDS: hydroCHLOROthiazide 25 MG Tablet PO (10:32)
[2021-10-03] MEDS: Senna/Docusate Sodium 1 Tablet 2 TABLET PO (10:32)
--- NOTE | 2021-10-03 10:34 | CASEMGMT ---
Addendum entered by Melissa Charles 10/03/21 13:44: Social Work Per PA, pt is ready for discharge today. PASRR completed in [facility] and faxed along with orders and covid test results to Austin at [facility]. Transportation arranged with [facility] for 1445 pick remover via wheelchair van. Pt notified and agreeable to plan. Call to [facility] and updated on discharge time. Nursing aware. Plan: [facility] Skilled level of care [facility] Addendum entered by Melissa Charles 10/03/21 12:11: Social Work Return call from Austin at [facility] and pt can be accepted today. SW updated nursing who will notify ortho. PA. SW met with pt and informed and she is agreeable to d/c plan. Plan: [facility], skilled level of care [facility] Original Note: Social Work SW was informed by Lalo PAUL that pt is requesting to go to [facility] at discharge. CASPER met with pt who states she has already spoke to [facility] and has plans to go there for short term rehab prior to returning home alone. Phone call to [facility] and Austin confirms she has spoke with pt and a bed is available. Referral has been faxed and SW will await determination on acceptance. Plan: [facility], pending acceptance [facility]
[2021-10-03 13:58] VITALS: BP 102/54; PULSE 78; RESP 16; TEMP 36.9; O2SAT 97
--- NOTE | 2021-10-03 14:40 | NURSING ---
REPORT GIVEN TO CASEY AT [facility]
== END 2021-10-03 15:32 | disposition skilled nursing facility (03) ==
LOC: SDC 16:01 → MS3 16:01
PROVIDERS: Anesthesiology; Admitting Provider Orthopaedic Surgery; Referring Provider Orthopaedic Surgery; Visit Provider Orthopaedic Surgery
PROC: 0SRC0JZ Replacement of Right Knee Joint with Synthetic Substitute, Open Approach (ICD-10-PCS; CPT 27447; principal; 2021-10-02 09:30)
DX: M17.11 Unilateral primary osteoarthritis, right knee (principal); E11.9 Type 2 diabetes mellitus without complications; K21.9 Gastro-esophageal reflux disease without esophagitis; J45.909 Unspecified asthma, uncomplicated; Z79.899 Other long term (current) drug therapy; Z79.84 Long term (current) use of oral hypoglycemic drugs; E66.9 Obesity, unspecified; Z68.35 Body mass index [BMI] 35.0-35.9, adult
CPT/HCPCS: 27447; S2900; 01402; 64447; 36415; 73560; 80048; 82040; 82962; 83036; 83735; 85025; 85027; 87081; 87426; 88305; 88311; 93005; 96361; 96365; 96366; 96372; 96375; 97110; 97116; 97162; 97166; 97530; 97535; 99218; 99251; C1776; J7120; A4216; G0378; G0463; J2405

== ENCOUNTER → 2021-10-11 | Outpatient (REF) | payer SELFPAY ==
[2021-10-11 07:52] LABS: Hematocrit 32.9 % (37-47); Hemoglobin 10.5 g/dL (12.0-15.0); Mean Corp Hgb Conc 31.9 g/dL (32-36); Mean Corpuscular Hgb 29.1 pg (27.0-32.0); Mean Corpuscular Volume 91.1 fL (81-99); Mean Platelet Vol. 9.7 fl (6.2-12.0); Platelet Count 376 K/mm3 (150-450); RBC Distribution Width SD 42.8 fl (35.1-43.9); Red Blood Count 3.61 M/mm3 (4.2-5.4); White Blood Count 5.3 K/mm3 (4.4-11.0)
[2021-10-11 08:24] LABS: Anion Gap 8 (5-15); BUN 12 mg/dL (7-18); BUN/Creat Ratio 17.5 RATIO (10-20); Calcium,Total 9.3 mg/dL (8.5-10.1); Chloride 105 mmol/L (98-107); Creatinine, Serum 0.69 mg/dL (0.55-1.02); EST Glomerular Filtration Rate 90 mL/min (>60); Est Glom Filt Rate - Afr Amer 109 mL/min (>60); Glucose 164 mg/dL (74-106); Potassium 3.8 mmol/L (3.5-5.1); Sodium Level 138 mmol/L (136-145)
== END | disposition home or self-care (01) ==
LOC: OLS.WHLTCC 05:00
PROVIDERS: Visit Provider Family Medicine
DX: R11.0 Nausea (principal); E11.69 Type 2 diabetes mellitus with other specified complication; R22.43 Localized swelling, mass and lump, lower limb, bilateral; R26.2 Difficulty in walking, not elsewhere classified; R27.8 Other lack of coordination; Z47.1 Aftercare following joint replacement surgery; Z74.1 Need for assistance with personal care
CPT/HCPCS: 36415; 80048; 85027

== ENCOUNTER → 2022-01-04 | Outpatient (CLI) | payer MEDICARE, OTHER, SELFPAY ==
--- NOTE | 2022-01-04 12:35 | BI_ITS ---
MAMMOGRAPHY - BILATERAL SCREENING REASON FOR EXAM: Female, 71 years old. Routine annual screening examination. PERTINENT HISTORY: Non-contributory. TECHNIQUE: Digital bilateral breast glen (3D mammographic acquisition) in the CC and MLO projections. 2-D mediolateral oblique (MLO) and craniocaudad (CC) views of both breasts were obtained. CAD: Full Field Digital Mammography with Computer Added Detection was performed. COMPARISON: Comparison is made with prior study dated 10/18/2020 and 10/13/2019. FINDINGS: Breast Composition: The breasts are almost entirely fatty. There are no dominant masses or suspicious calcifications. Stable asymmetry of breast tissue with more breast tissue is seen in the upper-outer quadrant of the right breast as compared to the left side. Stable small lymph nodes in the right axillary region. No other significant abnormalities are identified. There has been no significant change since the prior study. BI/SCRN MAMM (CAD)W/GLEN BILAT IMPRESSION: Stable bilateral screening mammogram. Yearly follow-up mammogram recommended. (A) ASSESSMENT CATEGORY: BIRADS Category 2: Benign. A letter regarding these results will be sent to the patient by the facility within 30 days. Approximately 10% of breast cancers are not detected by mammography. A normal mammogram should not delay biopsy of a clinically suspicious abnormality. [id number] Electronically Signed: Indio Carrera MD at 14:13 EDT ,
== END | disposition home or self-care (01) ==
LOC: OPBI 12:33
DX: Z12.31 Encounter for screening mammogram for malignant neoplasm of breast (principal)
CPT/HCPCS: 77063; 77067

== ENCOUNTER → 2023-01-07 | Outpatient (CLI) | payer MEDICARE, OTHER, SELFPAY ==
--- NOTE | 2023-01-07 10:48 | BI_ITS ---
MAMMOGRAPHY - BILATERAL SCREENING REASON FOR EXAM: Female, 72 years old. Routine annual screening examination. PERTINENT HISTORY: Non-contributory. TECHNIQUE: Digital bilateral breast glen (3D mammographic acquisition) in the CC and MLO projections. 2-D mediolateral oblique (MLO) and craniocaudad (CC) views of both breasts were obtained. CAD: Full Field Digital Mammography with Computer Added Detection was performed. COMPARISON: Comparison is made with prior study January 04, 2022 and October 18, 2020. FINDINGS: Breast Composition: The breasts are almost entirely fatty. There are no dominant masses or suspicious calcifications. Stable asymmetry of breast tissue where more breast tissue is seen in the upper outer quadrant of the right breast as compared to the left side. Stable small benign appearing bilateral axillary lymph nodes. No other significant abnormalities are identified. There has been no significant change since the prior study. BI/SCRN MAMM (CAD)W/GLEN BILAT IMPRESSION: Stable bilateral screening mammogram. Yearly follow-up mammogram recommended. (A) ASSESSMENT CATEGORY: BIRADS Category 2: Benign. A letter regarding these results will be sent to the patient by the facility within 30 days. Approximately 10% of breast cancers are not detected by mammography. A normal mammogram should not delay biopsy of a clinically suspicious abnormality. [id number] Electronically Signed: Indio Carrera MD at 13:27 EDT ,
== END | disposition home or self-care (01) ==
DX: Z12.31 Encounter for screening mammogram for malignant neoplasm of breast (principal)
CPT/HCPCS: 77063; 77067

== ENCOUNTER → 2023-01-09 | Outpatient (CLI) | payer MEDICARE, OTHER, SELFPAY ==
--- NOTE | 2023-01-09 08:26 | BD_ITS ---
STUDY: DUAL ENERGY X-RAY ABSORPTIOMETRY / DXA REASON FOR EXAM: Female, 72 years old. M810 TECHNIQUE: Bone Mineral Density (BMD) measurements of lumbar spine and bilateral hips were obtained. COMPARISON: Comparison is made with prior examination dated October 18, 2020. FINDINGS: Lumbar Spine (L1-L4): g/cm2 (1.089) / T-score (0.5) / Z-score (2.6) Findings are suggestive of normal bone density with a low fracture risk. Left Femur Total: g/cm2 (0.627) / T-score (-2.6) / Z-score (-1.0) Left Femoral Neck: g/cm2 (0.476) / T-score (-3.4) / Z-score (-1.5) Right Femur Total: g/cm2 (0.625) / T-score (-2.6) / Z-score (-1.0) Right Femoral Neck: g/cm2 (0.592) / T-score (-2.3) / Z-score (-0.4) The T-Scores on the most recent prior examination were: Lumbar Spine (L1-L4): There has been improvement of bone density since the previous examination. Left Femur Total: which represents a worsening of 2.2%. Right Femur Total: which represents an improvement of 4.9%. BD/Dexa Bone Density Study IMPRESSION: The patient is considered osteoporotic as outlined below according to World Lemuel Organization (WHO) criteria with a high fracture risk. There has been improvement of bone density since the previous examination. Reference Information: The T-score is the number of standard deviations above or below the standard which is normal for young adults at their peak bone mineral density. The World Health Organization (WHO) interprets the T-scores as follows: Above -1 Normal bone density Between -1 and -2.5 Osteopenia Equal to / or below -2.5 Osteoporosis As a practical clinical guideline, osteopenia may be graded as follows: Mild -1 through -1.5 Moderate -1.6 through -2.0 Severe -2.1 through -2.4 The Z-score is the number of standard deviations above or below age-matched controls. A Z-score of less than -1.5 would be considered abnormal. References: 1. NIH Osteoporosis and Related Bone Diseases www osteo.org 2. International Society for Clinical Densitometry www iscd.org 3. National Osteoporosis Foundation www nof.org Electronically Signed: Indio Carrera MD at 8:38 EDT ,
== END | disposition home or self-care (01) ==
LOC: OPBD 08:23
DX: M81.0 Age-related osteoporosis without current pathological fracture (principal)
CPT/HCPCS: 77080

== ENCOUNTER → 2024-01-09 | Outpatient (CLI) | payer MEDICARE, OTHER, SELFPAY ==
--- NOTE | 2024-01-09 07:59 | BI_ITS ---
MAMMOGRAPHY - BILATERAL SCREENING REASON FOR EXAM: Female, 73 years old. Routine annual screening examination. PERTINENT HISTORY: Non-contributory. TECHNIQUE: Digital bilateral breast glen (3D mammographic acquisition) in the CC and MLO projections. 2-D mediolateral oblique (MLO) and craniocaudad (CC) views of both breasts were obtained. CAD: Full Field Digital Mammography with Computer Added Detection was performed. COMPARISON: Comparison is made with prior study dated January 07, 2023 and January 04, 2022. FINDINGS: Breast Composition: The breasts are almost entirely fatty. There are no dominant masses or suspicious calcifications. Stable asymmetric breast tissue with more breast tissue is seen in the upper outer quadrant of the right breast as compared to the left side. Stable small benign-appearing bilateral axillary lymph nodes. No other significant abnormalities are identified. There has been no significant change since the prior study. BI/SCRN MAMM (CAD)W/GLEN BILAT IMPRESSION: Stable bilateral screening mammogram. Yearly follow-up mammogram recommended. (A) ASSESSMENT CATEGORY: BIRADS Category 2: Benign. A letter regarding these results will be sent to the patient by the facility within 30 days. Approximately 10% of breast cancers are not detected by mammography. A normal mammogram should not delay biopsy of a clinically suspicious abnormality. [id number] Electronically Signed: Indio Carrera MD at 10:23 EDT ,
== END | disposition home or self-care (01) ==
LOC: OPBI 07:58
DX: Z12.31 Encounter for screening mammogram for malignant neoplasm of breast (principal)
CPT/HCPCS: 77063; 77067

== ENCOUNTER → 2024-01-13 | Outpatient (CLI) | payer MEDICARE, OTHER, SELFPAY ==
--- NOTE | 2024-01-13 07:41 | CT_ITS ---
CT LEFT LOWER EXTREMITY WITH 3-D IMAGING CLINICAL INDICATION: KNEE PAIN TECHNIQUE: Axial CT images of the left lower extremity (including left hip, left knee, and left ankle) was performed without IV contrast material. Coronal and sagittal reformats were provided. The protocol utilizes one or more of the following dose reduction techniques: automated exposure control, adjustment of mA and/or kV according to patient size, and/or use of iterative reconstruction technique. RADIATION DOSAGE (If Supplied By Facility): CTDIvol = ( 56.28 ) mGy, DLP = ( 1081.05 ) mGycm COMPARISON: Left knee radiographs dated 01/28/2007. FINDINGS: Bones: There is mild degenerative arthrosis of the left hip joint. There is moderate tricompartment degenerative arthrosis of the left knee joint with joint space narrowing and marginal osteophyte formation, most pronounced in the medial femorotibial compartment. There are multiple ossified loose bodies in the posterior femorotibial joint recess, measuring up to 1.5 cm in diameter. 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 Osseous structures are intact without evidence of fracture or dislocation. No lytic or blastic osseous masses. Soft Tissues: There is a tiny left knee joint effusion. The deep soft tissue structures are unremarkable. The superficial soft tissues are unremarkable without evidence of edema, hematoma, or foreign body. CT/Extremity Lower without Contra IMPRESSION: Moderate tricompartment degenerative arthrosis of the left knee joint, most pronounced in the medial femorotibial compartment. Multiple ossified loose bodies in the posterior femorotibial joint recess, measuring up to 1.5 cm in diameter. Tiny left knee joint effusion. Electronically Signed: Donovan Holman MD at 9:18 EDT ,
== END | disposition home or self-care (01) ==
LOC: CT 07:18
PROVIDERS: Referring Provider Specialist; Visit Provider Specialist
DX: M25.562 Pain in left knee (principal); M17.12 Unilateral primary osteoarthritis, left knee
CPT/HCPCS: 73700

== ENCOUNTER 2024-02-03 07:02 | Observation (INO) | payer MEDICARE, OTHER, SELFPAY ==
--- NOTE | 2024-01-13 07:22 | EKG12_ITS ---
Test Reason : PREOP Blood Pressure : / mmHG Vent. Rate : 084 BPM Atrial Rate : 084 BPM P-R Int : 130 ms QRS Dur : 078 ms QT Int : 380 ms P-R-T Axes : 068 010 047 degrees QTc Int : 449 ms Sinus rhythm with occasional Premature ventricular complexes Low voltage QRS Borderline ECG Confirmed by KUNAL ALVA, JASS ([id number]), editorial director LÁZARO TAPIA ([id number]) on 01/14/2024 10:07:34 AM Referred By: Manoj Saavedra Confirmed By:JASS SYED MD
[2024-01-13 08:08] LABS: Absolute Lymphocyte Count 1.04 X10^3/uL (0.83-4.51); Absolute Neutrophil Count 1.5 X10^3/uL (2.0-7.7); Basophil# 0.04 X10^3/uL; Basophil% 1.4 % (0-1); Eosinophil# 0.06 X10^3/uL; Eosinophils% 2.1 % (0-5); Hematocrit 39.3 % (37-47); Hemoglobin 12.5 g/dL (12.0-15.0); Lymphocyte # 1.04 X10^3/ul (0.83-4.51); Lymphocyte % 35.6 % (19-41); Mean Corp Hgb Conc 31.8 g/dL (32-36); Mean Corpuscular Hgb 28.8 pg (27.0-32.0); Mean Corpuscular Volume 90.6 fL (81-99); Mean Platelet Vol. 10.6 fl (6.2-12.0); Monocyte# 0.28 X10^3/uL; Monocyte% 9.6 % (0-10); NRBC Flagged by Analyzer 0 % (0-5); Neutrophil % 51.3 % (47-70); Platelet Count 249 K/mm3 (150-450); RBC Distribution Width CV 12.6 % (11.6-14.6); RBC Distribution Width SD 41.9 fl (35.1-43.9); Red Blood Count 4.34 M/mm3 (4.2-5.4); White Blood Count 2.9 K/mm3 (4.4-11.0)
[2024-01-13 09:31] LABS: Hemoglobin A1c 7.1 % (3.8-5.6)
[2024-01-13 10:07] LABS: Vitamin D,25 Hydroxy 39.7 ng/mL
[2024-01-13 10:47] LABS: ALB/GLOB Ratio 1.1 RATIO (0.9-2.4); AST(SGOT) 16 U/L (15-37); Alanine Aminotransfer ALT/SGPT 18 U/L (13-56); Albumin, Serum 3.6 g/dL (3.2-5.0); Alkaline Phosphatase 56 U/L (45-117); Anion Gap 10 (5-15); BUN 15 mg/dL (7-18); BUN/Creat Ratio 18.5 RATIO (10-20); Calcium,Total 9.3 mg/dL (8.5-10.1); Chloride 104 mmol/L (98-107); Cholesterol 133 mg/dL (200); Creatinine, Serum 0.81 mg/dL (0.55-1.02); EST Glomerular Filtration Rate 74 mL/min (>60); Est Glom Filt Rate - Afr Amer 89 mL/min (>60); Globulin 3.3 g/dL (2.2-4.2); Glucose 146 mg/dL (74-106); High Density Lipoprotein 72 mg/dL; Potassium 3.6 mmol/L (3.5-5.1); Protein, Total 6.9 g/dL (6.4-8.2); Sodium Level 139 mmol/L (136-145); Triglycerides 62 mg/dL; Very Low Density Lipoprotein 12 mg/dL (5-40)
[2024-01-13 12:54] LABS: Magnesium 1.7 mg/dL (1.6-2.6)
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
[2024-02-03] VITALS (16 sets, daily range): BP systolic 97–141; BP diastolic 51–89; PULSE 68–97; RESP 16–18; TEMP 36.2–36.9; O2SAT 92–100; BMI 36.0
[2024-02-03] MEDS: Lactated Ringers 1,000 ML 999 ML IV (08:25)
[2024-02-03] MEDS: Celecoxib 200 MG Capsule 400 MG PO (08:26)
[2024-02-03] MEDS: Acetaminophen 500 MG Tablet 1000 MG PO ×2 (08:26→21:17)
[2024-02-03] MEDS: Magnesium 2 GM for ERAS IV (08:26)
[2024-02-03] MEDS: Gabapentin 600 MG Tablet PO (08:26)
--- NOTE | 2024-02-03 08:38 | PRE.ANES_ITS ---
ASA Classification* ASA Classification ASA Classification: 3 Assessment & Plan Anesthesia* Anesthesia Assessment Anesthesia Assessment: Discussed sedation and/or anesthesia options, risks, benefits, and alternatives with patient/parents/legal guardian/POA. Questions invited. The patient/parents/legal guardian/POA seems to understand and agrees to proceed with anesthesia plan. Reviewed the physical assessment, medical history, allergy history and patient home medications list prior to surgery/procedure/anesthetic and documented any changes. Performed airway and anesthesia risk assessments. Anesthesia Type Anesthesia Type: Spinal (consented for Block) Anesthesia Focused Assessment* Temperature: 97.7 F Pulse Rate: 82 Blood Pressure: 141/81 Respiratory Rate: 16 Pulse Ox: 100 Airway Assessment Mouth opens: >3 cm Mallampati Score: II Focused Labs Anesthesia Preop lab: CBC WBC 2.9 K/mm3 (4.4-11.0) L 01/13/24 07:23 RBC 4.34 M/mm3 (4.2-5.4) 01/13/24 07:23 Hgb 12.5 g/dL (12.0-15.0) 01/13/24 07:23 Hct 39.3 % (37-47) 01/13/24 07:23 Plt Count 249 K/mm3 (150-450) 01/13/24 07:23 CHEMISTRY Potassium 3.6 mmol/L (3.5-5.1) 01/13/24 07:23 Sodium 139 mmol/L (136-145) 01/13/24 07:23 Magnesium 1.7 mg/dL (1.6-2.6) 01/13/24 07:23 BUN 15 mg/dL (7-18) 01/13/24 07:23 Creatinine 0.81 mg/dL (0.55-1.02) 01/13/24 07:23 Glucose 146 mg/dL (74-106) H 01/13/24 07:23 POC Glucose 219 mg/dL (74-106) H 10/03/21 07:25 TSH 2.110 uIU/mL (0.358-3.740) 01/13/24 07:23 COAG Pre-Assessment Diagnosis/Proposed Procedure Planned Operative Procedure(s): ROBOTIC ASSISTED LEFT TOTAL KNEE ATHROPLASTY Anesthesia History Anesthesia History - colorer machine: Anesthesia History - colorer machine Hx Hospitalization No 01/08/24 08:52 Any Problems With Anesthesia No 01/08/24 08:52 Cholinesterase deficiency No 01/08/24 08:52 You/Your Family Experience No 01/08/24 08:52 fever (hyperthermia) with Relationship Recent Exposure to Contagious No 02/03/24 08:12 Disease Does patient have nerve No 01/08/24 08:52 stimulator Patient instructed to have device shut off --Does patient have Pacemaker No 02/03/24 08:12 or ICD? When Was Last Pacemaker Check QUESTION #4 FULL TEXT: You/Your Family Experience fever (hyperthermia) with Anesthesia Last Oral Intake Last Oral intake: Last Oral Intake NPO since 07:00 02/03/24 08:12 Meds taken in AM with sips of Yes 02/03/24 08:12 water? Meds patient instructed to see mar 02/03/24 08:12 take am of surgery PONV PONV - colorer machine: PONV - colorer machine Female Yes 01/08/24 08:52 HX of Motion Sickness No 01/08/24 08:52 HX of N/V After Surgery No 01/08/24 08:52 Non-Smoker Yes 01/08/24 08:52 Duration of Surgery greater Yes 01/08/24 08:52 than 60 minutes Number of Risk Factors 3 01/08/24 08:52 PONV Score Moderate Risk 01/08/24 08:52 Height & Weight Height & Weight: Anesthesia: Height & Weight Height 5 ft 7 in 02/03/24 08:12 Weight: 104.326 kg 02/03/24 08:12 Body Mass Index (BMI) 36.0 02/03/24 08:12 Respiratory Assessment Respiratory Assessment - colorer machine: Respiratory Tract Infection Hx - colorer machine Hx Respiratory Tract Infection No 01/08/24 08:52 STOP Sleep Apnea STOP Sleep Apnea - colorer machine: STOP Sleep Apnea - colorer machine Hx Hypertension Yes: CONTROLLED WITH MED 01/08/24 08:52 Hx Sleep Apnea No 01/08/24 08:52 CPAP No 10/02/21 12:01 BIPAP Do you snore loudly (louder No 01/08/24 08:52 than talking or can be heard Do you often feel tired/ No 01/08/24 08:52 fatigued/ sleepy during daytime? Has anyone observed you stop No 01/08/24 08:52 breathing during sleep? STOP Results Negative 01/08/24 08:52 QUESTION #5 FULL TEXT : Do you snore loudly (louder than talking or can be heard through closed doors)? Tobacco Use History Tobacco Use History - colorer machine: Tobacco Use History - colorer machine Tobacco Use Smoking Status Never smoker 01/08/24 08:52 Hx Tobacco Use No 01/08/24 08:52 Years Smoking Packs Smoked per Day Smoking Cessation Date was within the last 15 years Hx Smoking Cessation Date Hx Smoking Cessation Counseling Hematologic Medial History Hematologic Hx - colorer machine: Hematologic Medical Hx - retail account representative Hx of Blood Transfusion No 01/08/24 08:52 Hx of Transfusion in last 3 No 01/08/24 08:52 Months Date of Last Transfusion (if within last 3 months) Ever experience any problems No 01/08/24 08:52 with transfusion(s)? Specify any problems Hx of Preganancy in last 3 No 01/08/24 08:52 Months Nurse Filling Out Transfusion DSCHRIBER 01/08/24 08:52 & Questions: Date: 01/08/24 01/08/24 08:52 Time: 08:54 01/08/24 08:52 Patient unable to answer at this time (ie. confused, unrespo /Reproduction History /Reproductive History - colorer machine: /Reproductive Hx- colorer machine Hx Now No 01/08/24 08:52 Gestational Age (in weeks): EDC: Hx Hx Para Hx Section SAB No 01/08/24 08:52 Active Medications Active Medications: Current Medications Generic Name Dose Route Start Last Admin Trade Name Freq PRN Reason Stop Dose Admin Acetaminophen 1,000 mg 02/03/24 10:00 02/03/24 08:26 Acetaminophen 500 Mg Tablet PO 02/03/24 10:01 1,000 mg X1 ONE Administration Acetaminophen 1,000 mg 02/03/24 14:00 Acetaminophen 500 Mg Tablet PO Q8 SUZY Albuterol Sulfate 2 puff 02/03/24 07:01 Albuterol Sulfate 8 Gm Inhaler (60 Puffs) INHALATION Q6H PRN ASTHMA Aspirin 81 mg 02/03/24 10:00 Aspirin 81 Mg Tab.Chew PO BID SUZY Calcium/Vitamin D 1 tablet 02/03/24 10:00 Calcium Carb/Vitamin D 1 Tablet Tablet PO BID SUZY Celecoxib 400 mg 02/03/24 10:00 02/03/24 08:26 Celecoxib 200 Mg Capsule PO 02/03/24 10:01 400 mg X1 ONE Administration Sodium Chloride 77.4 ml/ 0 ml 02/03/24 10:00 Ropivacaine 200 mg/ OPERA.SITE 02/03/24 10:01 Epinephrine HCl 0.6 mg/ X1 ONE Ketorolac Tromethamine 30 mg/ Morphine Sulfate 5 mg Doxycycline Monohydrate 100 mg 02/04/24 13:00 Doxycycline 100 Mg Capsule PO BID [facility] Enteral Nutritional Formula 237 ml 02/03/24 08:00 Ensure Surgery 237 Ml Liquid PO TIDCM [facility] Famotidine 20 mg 02/03/24 10:00 Famotidine 20 Mg Tablet PO DAILY [facility] Gabapentin 600 mg 02/03/24 10:00 02/03/24 08:26 Gabapentin 600 Mg Tablet PO 02/03/24 10:01 600 mg X1 ONE Administration Glimepiride 1 mg 02/03/24 10:00 Glimepiride 1 Mg Tablet PO DAILY [facility] Hydrochlorothiazide 25 mg 02/03/24 10:00 Hydrochlorothiazide 25 Mg Tablet PO DAILY [facility] Protocol Lactated Ringer's 1,000 mls @ 999 mls/hr 02/03/24 10:00 02/03/24 08:25 IV 02/03/24 11:00 999 mls/hr .Q1H1M SUZY Administration Tranexamic Acid 1,000 mg/ 110 mls @ 660 mls/hr 02/03/24 10:00 Sodium Chloride IV 02/03/24 10:09 X1 ONE Tranexamic Acid 1,000 mg/ 110 mls @ 660 mls/hr 02/03/24 10:00 Sodium Chloride IV 02/03/24 10:09 X1 ONE Lactated Ringer's 1,000 mls @ 999 mls/hr 02/03/24 10:00 IV 02/03/24 11:00 .Q1H1M SUZY Lactated Ringer's 1,000 mls @ 125 mls/hr 02/03/24 10:00 IV 02/03/24 17:59 .Q8H SUZY Magnesium Sulfate 2 gm/ 104 mls @ 208 mls/hr 02/03/24 10:00 02/03/24 08:26 Dextrose IV 02/03/24 10:29 208 mls/hr X1 ONE Administration Cefazolin Sodium 2 gm/ N/A 20 mls @ 400 mls/hr 02/03/24 10:00 IV 02/03/24 10:02 PREOP ONE Cefazolin Sodium 1 gm in 50 mls @ 150 mls/hr 02/03/24 14:00 IV 02/03/24 22:19 Q8 SUZY Insulin Human Lispro 1 - 6 unit 02/03/24 10:00 Insulin Lispro 100 Unit/Ml Insuln.Pen SC Q4H PRN PRN BG>/= 180, SEE PROTOCOL Protocol Ketorolac Tromethamine 15 mg 02/03/24 07:02 Ketorolac 15 Mg/Ml Vial IV 02/05/24 07:04 Q6H PRN PRN Pain Score 1-5 Loratadine 10 mg 02/03/24 22:00 Loratadine 10 Mg Tablet PO QHS [facility] Meloxicam 7.5 mg 02/05/24 10:00 Meloxicam 7.5 Mg Tablet PO BID [facility] Metformin HCl 500 mg 02/03/24 10:00 Metformin (Xr) 500 Mg Tablet PO BID [facility] Morphine Sulfate 2 - 4 mg 02/03/24 07:02 Morphine 2 Mg/Ml Syringe IV Q2H PRN PRN Pain Score 6-10 Non-Formulary Medication 35 mg 02/09/24 07:01 Alendronate PO LEY [facility] Non-Formulary Medication 10 mcg 02/03/24 10:00 Cholecalciferol (Vitamin D3) [Vitamin D3] PO DAILY [facility] Non-Formulary Medication 10,000 mmu cells 02/03/24 10:00 Lactobacillus Acidophilus [Probiotic] PO DAILY [facility] Non-Formulary Medication 5 mg 02/03/24 10:00 Rosuvastatin PO DAILY [facility] Ondansetron HCl 4 mg 02/03/24 07:02 Ondansetron 4 Mg/2 Ml Vial IV Q8H PRN PRN NAUSEA Oxycodone HCl 5 - 10 mg 02/03/24 07:02 Oxycodone 5 Mg Tablet PO Q4H PRN PRN Pain Score 4-10 Pantoprazole Sodium 40 mg 02/03/24 10:00 Pantoprazole Sodium 40 Mg Tablet PO DAILY [facility] Promethazine HCl 12.5 mg 02/03/24 07:02 Promethazine 25 Mg/Ml Syringe IM Q6H PRN PRN NAUSEA/VOMITING Protocol Senna/Docusate Sodium 2 tablet 02/03/24 10:00 Senna/Docusate Sodium 1 Tablet PO BID [facility] PFSH Medical History Loss of hearing UTI (urinary tract infection) Low iron High cholesterol Dietary restriction History of pain when walking Hypertension History of edema Wears glasses Post-menopausal Diabetes Arthritis Back pain Injury of back History of IBS Gastric reflux Non-smoker Asthma Leg cramps History of trigger finger History of deviated nasal septum Home Medications ?Medication ?Instructions ?Recorded ?Last Taken ?Type Lactobacillus acidophilus 10 10,000 mmu cells PO DAILY 09/19/21 Unknown History billion cell capsule (Probiotic) albuterol sulfate 90 mcg/actuation 2 puff inhalation Q6H PRN ASTHMA 09/19/21 Unknown History aerosol inhaler (Ventolin HFA) alendronate 35 mg tablet 35 mg PO LEY 09/19/21 Unknown History calcium 600 mg (as 1 tab PO BID 09/19/21 Unknown History carbonate)-vitamin D3 10 mcg (400 unit) tablet (Calcium 600 + D(3)) coenzyme Q10 100 mg capsule 100 mg PO BID 09/19/21 Unknown History (CoQ-10) glimepiride 1 mg tablet 1 mg PO DAILY 09/19/21 Unknown History hydrochlorothiazide 25 mg tablet 25 mg PO DAILY 09/19/21 Unknown History metformin 500 mg tablet,extended 1,000 mg PO BID 09/19/21 Unknown History release 24 hr omeprazole 40 mg capsule,delayed 40 mg PO DAILY 09/19/21 02/03/24 05:00 History release rosuvastatin 5 mg tablet 5 mg PO DAILY 09/19/21 Unknown History cetirizine 10 mg capsule (Zyrtec) 10 mg PO QHS 01/08/24 Unknown History cholecalciferol (vitamin D3) 10 10 mcg PO DAILY 01/08/24 Unknown History mcg (400 unit) tablet (Vitamin D3) naproxen sodium 220 mg capsule 220 mg PO BID PRN pain 01/08/24 Unknown History (Aleve) pseudoephedrine-guaifenesin ER 60 1 tab PO Q12H PRN cold symptoms 01/08/24 Unknown History mg-600 mg tablet,extend release 12hr (Mucinex D) Allergy/AdvReac Type Severity Reaction Status Date / Time cefdinir AdvReac Abd Verified 02/03/24 08:10 cramps/diarrhea clarithromycin (From Biaxin) AdvReac Abd Verified 02/03/24 08:10 cramps/diarrhea nitrofurantoin (From AdvReac Abd Verified 02/03/24 08:10 Macrobid) cramps/diarrhea sulfamethoxazole (From AdvReac Abd Verified 02/03/24 08:10 Bactrim) cramps/diarrhea trimethoprim (From Bactrim) AdvReac Abd Verified 02/03/24 08:10 cramps/diarrhea Surgical History Hx of total knee arthroplasty Hx of foot surgery Hx of cholecystectomy Hx of hysterectomy Hx of tonsillectomy Social History Smoking Status: Never smoker Review of Systems (Anesthesia) ROS Narrative System reviewed and no additional complaints, except as documented.
[2024-02-03 08:54] LABS: Bedside Glucose 161 mg/dL (74-106)
--- NOTE | 2024-02-03 10:00 | KNEE_PTH ---
PATIENT: ROSALINA NOE LOC: MS3 U#:[id number] AGE/SX: 73/F ROOM: [facility] [place] RE02/03/[address]: Dr. Ismael Duke MD : 1950 BED: 1 DIS: 02/04/2024 SPEC #: [id number] RECD: 02/03/24 13:44 STATUS: TIANNA REQ #: [id number] TONY: 02/03/24 10:[address]: Manoj Saavedra DEPT: SURGICAL PATHOLOGY RECD BY: Saba Cohn ENTERED: 02/03/24 14:09 SP TYPE: TOTAL KNEE OTHR DR: Dr. Gabriela Meredith, DO Tissues: Knee, NOS Procedures: Decalcification bone/plaque Surgery Specimen Level IV HEADER OPERATION: Total knee replacement robotic arm assist PRE-OP DIAGNOSIS: Severe left knee osteoarthritis with varus deformity, presence of right total knee arthroplasty, type 2 diabetes mellitus, hypertension TISSUE SUBMITTED: Left knee bone and tissue MICROSCOPIC DIAGNOSIS Bone and soft tissue, left knee, total knee replacement/resection: Pieces of bone with degenerative osteoarthritic changes. SHANNON: 02/06/2024 MICROSCOPIC DESCRIPTION Slides are reviewed. GROSS DESCRIPTION Received is one container designated bone and soft tissue left knee. The specimen consists of multiple fragments of tello-yellow bone measuring in aggregate 11.5 x 10.0 x 3.0 cm. Three pieces of bone consistent with loose bodies are also noted measuring in aggregate 5.0 x 3.2 x 2.0cm and 1.5 to 3.0cm in greatest dimension. No soft tissue is identified. A number of bony fragments contain articular surfaces consistent with tibial plateau and femoral condyle and displaying prominent osteophyte formation, eburnation and bone erosion. Trackwalker sections are submitted in one cassette after decalcification. /SHANNON. 02/03/2024 TC:5 CPT: 44903, 94091
[2024-02-03] MEDS: Lactated Ringers 1,000 ML 75 ML IV (10:32)
[2024-02-03] MEDS: Cefazolin 2 GM in Syringe IV (10:36)
[2024-02-03] MEDS: TXA 1000mg in NS100 100ml (IVPB at Incision) 660 MG IV (10:40)
[2024-02-03] MEDS: Lactated Ringers 1,000 ML 125 ML IV (11:00)
[2024-02-03] MEDS: TXA 1000mg in NS100 100ml (IVPB at Closure) 660 MG IV (11:42)
[2024-02-03] MEDS: JPS (Morphine 10mg/ml) OPERA.SITE (11:43)
--- NOTE | 2024-02-03 11:46 | OP.PCM_ITS ---
Operative Report (Standard) Operative Information Surgery/Procedure Performed: Minimally invasive left robotic total knee repl acement Surgeon: Manoj Saavedra Date of Procedure: 02/03/24 Procedure Start Time: 10:58 Procedure Stop Time: 12:20 Pre-Operative Diagnosis: Left knee primary osteoarthritis Post-Operative Diagnosis: Left knee primary osteoarthritis Select all DRAINS/GRAFTS/IMPLANTS that apply: Prosthetic device Prosthetic device details: SEE BODY OF OP REPORT Type of Anesthesia: Spinal Special Medications: 2 g Ancef, 1 g TXA at incision, 1 g TXA closure, 10 mg Decadron, joint cocktail (5 mg Duramorph, 30 mL of 0.5% Ropivicaine, 1000 units of epinephrine, 30 mg of Toradol) Estimated Blood Loss: 75 Fluids Replaced: 700 mL crystalloid Specimen collected: Yes Description of specimen(s) removed: Bony Description of surgery: Implants used: 1. Helio size 5 triathlon cruciate retaining distal femoral press-fit component 2. Jackman size 5 press-fit tritanium tibial baseplate 3. Jackman X3 9 mm polyethylene 4. Helio X3 35 mm asymmetric patella Brief history operative indications: 73-year-old female with history of left knee osteoarthritis with radiographic findings with loss of joint space, osteophyte formation and subchondral sclerosis. Failed conservative measures as mentioned in the H&P. Discussion of total knee arthroplasty as well as risk and benefits were discussed the patient including but not limited to blood loss, DVTs, PEs, neurovascular damage, general risk of anesthesia including loss of life, and stiffness or instability were discussed with patient. Patient demonstrated understanding and was able to sign informed consent. Procedure: On the date of procedure patient's left lower extremity was marked in the preoperative area. The patient was then taken back to the operating room where the patient was placed on the table in the supine position. All bony prominences were identified a well-padded. Anesthesia assumed control of the C-spine and airway and remained controlled throughout the remainder of the procedure. A tourniquet was placed on the left upper thigh and the leg was prepped in a sterile fashion. The surgeon then scrubbed at this time .Upon reentering the room left lower extremity was draped in a standard orthopedic fashion. A timeout was then called and everyone agreed upon the side, the site, the procedure to be performed, patient's identity and antibiotics given. Esmarch bandage was used to exsanguinate the extremity and the tourniquet was placed up to 250 mmHg with the knee in flexion. A midline skin incision was made and sharp dissection was taken down through skin subcutaneous tissue and fat. The standard medial parapatellar incision was made and the patella was subluxed laterally. An Appropriate deep MCL release was done and the fat pad was resected. Our attention was then directed to the patella. The patella was everted and a flat resection was made. The knee was then flexed up in 2 femoral pins were placed inside the incision and 2 tibial pins were placed outside the incision in the medial tibia bicortically. Once this was completed the 2 checkpoints in the femur and tibia were placed. Knee was then flexed up and the bony landmarks were registered. Once this was completed knee was taken through range of motion and manually stressed allowing us to a plan for an appropriate tibial cut. The robotic arm was brought into the field sterilely and checkpoint and saw were registered. Based on the patient's deformity the tibial cut was made in 3 degrees of varus. At this time the tensioner was then placed in the joint and ligament tension was checked at 90 degrees and full extension. Based on the patient's ligamentous tension appropriate adjustments were made to the operative plan and ligament re leases were done. Once we were happy with our operative plan with balanced flexion and extension gaps our attention was directed to the femur. The robot was brought into the field sterilely and registered. Posterior condylar cuts, anterior chamfer cuts and anterior cuts were appropriately made for a size 5 femur. When these were completed the saws were switched out in the distal femoral and posterior chamfer cuts were made. Protecting the soft tissue throughout this time. A size 5 tibial base plate was selected. the knee was flexed to 90 degrees and the soft tissues and posterior osteophytes were removed from the joint. 40 cc of the periarticular injection was injected into the posterior medial corner of the joint. The appropriate trials were then placed on the femur and tibia. A trial polyethylene was trialed to ensure proper balancing and stability of the knee. The appropriate tibial internal rotation was then marked with a bovie. Our attention was then directed to the patella. The lug holes were drilled and the patella trial was placed. Patellar tracking was checked and deemed appropriate. Once we were happy lug holes were drilled for the femur and trial components were removed. The tibia was subluxed and pinned into place and the keel was punched and drilled appropriately. Final components were verified and opened. The wound was copiously irrigated with normal saline. When the cement was ready the components were impacted into place starting with the tibia then the femur, finally the patella was compressed into place. The trial poly component was placed and the knee was placed in full extension. Once the the implants were secured, the tracking, alignment and balance were verified and a size [] polyethylene component was placed. Once the final components were placed a 3-minute dilute Betadine lavage was performed followed by an Irrisept lavage was performed and the wound was copiously irrigated with normal saline solution and the periarticular injection was given. The wound was closed in a layer anand fashion using #1 vicryl interrupted sutures for the arthrotomy, 2-0 interrupted Vicryl suture for the subcuticular layer and moris for final skin closure. A sterile compressive dressing was then placed. The patient was then awakened from anesthesia, transferred to the rplato and transferred to the PACU for recovery. Post op plan DVT ppx: ASA 81mg BID, thigh high compression stockings Follow up: in office in 2 weeks for wound check PT: to start POD #0 at hospital, outpatient PT should be arranged. Due to hemoglobin A1c greater than 7.0 patient be placed on doxycycline 100 mg p.o. twice daily extended postoperative oral antibiotics. My physician environmental assistant was a vital part of this case, they was important because there was not another skilled set of hands available to their training and aptitude needed for safe and appropriate completion of this case. They were important in appropriate retraction during the case, and protection of soft tissues during bony cuts. In particular the experience and skill of this environmental assistant made for safe retraction and exposure during implantation of medical implants without damage to vital soft tissues or structures. His intimate knowledge of the case and my steps aided in safe and expedient completion of the procedure as well as appropriate position of the leg during the case. He was also vital in assisting with closure under my direct supervision. Due to the complexity of this case robotic arm was used to assist in the surgery to improve accuracy and clinical outcomes. Surgical Findings: Stable knee with good patella tracking. Stage IV osteoarthritis. Fitter Mechanic systems integrator: Yes Franchise Sales Director: Cortes Daley Tasks completed by technical administrative assistant: Other (See Body of Op Report) Complications Complications: No Admit VTE Documentation VTE Present on Admission: No VTE Mechan Device Prophylaxis: SCD's and Thigh High NEVILLE Hose VTE Pharm Prophylaxis ordered?: Yes
--- NOTE | 2024-02-03 12:32 | PCM.POST.ANE ---
Anesthesia: Postop Eval I Current Vital Signs Temperature: 97.2 F Pulse Rate: 82 Blood Pressure: 134/75 Respiratory Rate: 16 Pulse Ox: 100 Oxygen Delivery Method: Room Air Assessment Airway patent: Yes Spontaneous unlabored respirations: Yes Mental status: Awake and Calm nausea: No Vomiting: No Anesthesia Complication: No Fluid Hydration Crystalloid volume administer (ml): 1,000 Total IV fluid infused: 1,000 Progress Note Anesthesia document: Postop Eval 1 completed: Yes
--- NOTE | 2024-02-03 12:45 | RAD_ITS ---
EXAM: XR LEFT KNEE, 1 OR 2 VIEWS CLINICAL INDICATION: post op -- AP and Lateral x-ray of operative knee in PACU TECHNIQUE: Frontal and/or lateral views of the left knee. COMPARISON: No relevant prior studies available. FINDINGS: BONES/JOINTS: Intact metallic arthroplasty in the left knee joint and left patellofemoral articulation. No acute fracture. No subluxation. Normal alignment. No sclerotic or destructive changes observed. SOFT TISSUES: Postoperative air and soft tissue swelling inside and outside the knee joint space. Surgical moris overlying the anterior surface of the knee. RAD/Knee 1 or 2 Views IMPRESSION: Normal postoperative changes of the left knee with intact left metallic arthroplasty in the left knee joint and left patellofemoral articulation. Electronically Signed: Ulises Bermeo MD at 14:30 EDT ,
[2024-02-03 13:30] LABS: Bedside Glucose 202 mg/dL (74-106)
[2024-02-03] MEDS: Insulin Lispro 100 UNIT/ML INSULN.PEN SC ×2 (13:31→17:24)
[2024-02-03] MEDS: Ensure Surgery 237 ML LIQUID PO (14:50)
--- NOTE | 2024-02-03 15:56 | POSTOPAN2_ITS ---
Anesthesia Postop Eval I Sum Postop Eval Completion status Anesthesia document: Postop Eval 1 completed: Yes Anesthesia Postop Eval I Summary Anesthesia Postop Eval I Summary: Anesthesia Postop Eval I: Assessment Summary Airway patent Yes 02/03/24 12:33 FIELD SERVICE TECHNICIAN POULTRY.SKOBY Spontaneous unlabored Yes 02/03/24 12:33 FIELD SERVICE TECHNICIAN POULTRY.PEMAOBDelmi respirations Mental status Awake,Calm 02/03/24 12:33 FIELD SERVICE TECHNICIAN POULTRY.SKOBY nausea No 02/03/24 12:33 FIELD SERVICE TECHNICIAN POULTRY.SKOBY Vomiting No 02/03/24 12:33 FIELD SERVICE TECHNICIAN POULTRY.SKOBY Anesthesia Postop Eval I: Fluid Summary Crystalloid volume administer 1,000 02/03/24 12:33 FIELD SERVICE TECHNICIAN POULTRY.SKOBY (ml) Colloids volume administered ( ml) Blood Product volume administered (ml) Total IV fluid infused 1,000 02/03/24 12:33 FIELD SERVICE TECHNICIAN POULTRY.PEMAOBDelmi Anesthesia Postop Eval I: Summary Notes Anesthesia Complication No 02/03/24 12:33 FIELD SERVICE TECHNICIAN POULTRY.PEMAOBDelmi Anesthesia Complication Comment: Post-operative progress note Anesthesia: Postop Eval II Evaluation Mental status: Awake and Calm Pain Level: 1 nausea: No Vomiting: No Complications Anesthesia Complication: No
--- NOTE | 2024-02-03 15:56 | PCM.POSTANE2 ---
Anesthesia Postop Eval I Sum Postop Eval Completion status Anesthesia document: Postop Eval 1 completed: Yes Anesthesia Postop Eval I Summary Anesthesia Postop Eval I Summary: Anesthesia Postop Eval I: Assessment Summary Airway patent Yes 02/03/24 12:33 [employer].SKOBY Spontaneous unlabored Yes 02/03/24 12:33 [employer]TAIN SENIOR.PEMAOBDelmi respirations Mental status Awake,Calm 02/03/24 12:33 [employer].SKOBY nausea No 02/03/24 12:33 [employer].SKOBY Vomiting No 02/03/24 12:33 [employer] S[employer].SKOBY Anesthesia Postop Eval I: Fluid Summary Crystalloid volume administer 1,000 02/03/24 12:33 [employer] S[employer]IOR.SKOBY (ml) Colloids volume administered ( ml) Blood Product volume administered (ml) Total IV fluid infused 1,000 02/03/24 12:33 POLICE CAPTAIN SENIOR.PEMAOBDelmi Anesthesia Postop Eval I: Summary Notes Anesthesia Complication No 02/03/24 12:33 POLICE CAPTAIN SENIOR.PEMAOBDelmi Anesthesia Complication Comment: Post-operative progress note Anesthesia: Postop Eval II Evaluation Mental status: Awake and Calm Pain Level: 1 nausea: No Vomiting: No Complications Anesthesia Complication: No
--- NOTE | 2024-02-03 16:23 | PCM.PN.HOSP ---
Reason for Visit Reason for Visit: Diagnoses Encounter for other preprocedural examination (02/03/24) Subjective Subjective Because requested by Dr. Saavedra for postoperative medical management. Is a 73-year-old female who underwent a left knee arthroplasty. Feeling fine postoperatively but the nerve block has not worn off quite yet. Objective Data Objective Data Vital Signs: Vital Signs Temp Pulse Resp BP Pulse Ox O2 Del Method O2 Flow Rate 36.4 C L 90 18 116/74 93 Nasal Cannula 3 02/03/24 14:30 02/03/24 14:30 02/03/24 14:30 02/03/24 14:30 02/03/24 14:30 02/03/24 14:30 02/03/24 14:30 Oxygen Flow Rate (L/min) 3 Oxygen Delivery Method Nasal Cannula Weight: 104.326 kg Body Mass Index (BMI) 36.0 Intake & Output: Intake and Output for Last 24 Hours 02/01/24 02/02/24 02/03/24 23:59 23:59 23:59 Intake Total 1666.5 / 1666.5 Balance 1666.5 / 1666.5 Lab / Micro Data 01/13/24 07:23 01/13/24 07:23 Labs: Laboratory Results - last 24 hr 02/03/24 08:14: POC Glucose 161 H 02/03/24 13:13: POC Glucose 202 H Micro: Microbiology 01/13/24 07:23 Swab (Method) Nasal Screen MRSA/MSSA - Final Radiography Diagnostic Testing: Radiology Impression Knee X-Ray 02/03/24 12:45 IMPRESSION: Normal postoperative changes of the left knee with intact left metallic arthroplasty in the left knee joint and left patellofemoral articulation. Electronically Signed: Ulises Bermeo MD at 14:30 EDT , Physical Exam Const alert and no apparent distress HEENT head/scalp atraumatic and moist oral mucous membranes Resp normal respiratory effort, no retractions, no use of accessory muscles and clear to auscultation bilaterally Cardio regular rate, regular rhythm, S1 normal heart sound and S2 normal heart sound GI normal to inspection, nondistended, normoactive bowel sounds, soft to palpation, non-tender and non-distended Neuro Sensorium / Orientation: awake and alert Assessment & Plan Assessment/Plan (1) Diabetes: PLAN: Diabetes mellitus type 2: Patient takes glimepiride and metformin. Last A1c was 7.1. Will start her on moderate dose sliding scale with meals and I have changed the every 4 hours as needed medication. PLAN: Plan Status post left knee replacement. Per orthopedics. VTE prophylaxis: On twice daily aspirin Thank you for the consult. Hospital service will follow along as necessary. I do not anticipate any medical issues that would limit the patient's discharge when she is ready from an orthopedic standpoint. Charges/Coding Visit Charges Inpatient E&M: 69725 Subs Hosp L2
[2024-02-03] MEDS: Calcium Carb/Vitamin D 1 TABLET Tablet PO (17:23)
[2024-02-03] MEDS: Aspirin 81 MG TAB.CHEW PO (17:23)
[2024-02-03] MEDS: metFORMIN (XR) 500 MG Tablet PO (17:23)
[2024-02-03] MEDS: Cefazolin 1 GM/50 ML BAG IV (18:32)
[2024-02-03 19:45] LABS: Bedside Glucose 387 mg/dL (74-106)
[2024-02-03] MEDS: Senna/Docusate Sodium 1 Tablet 2 TABLET PO (21:16)
[2024-02-03] MEDS: Loratadine 10 MG Tablet PO (21:16)
[2024-02-03] MEDS: Atorvastatin Calcium 10 MG Tablet PO (21:16)
[2024-02-04] MEDS: Cefazolin 1 GM/50 ML BAG IV (03:12)
[2024-02-04 03:33] VITALS: BP 108/64; PULSE 68; RESP 16; TEMP 36.6; O2SAT 95
[2024-02-04] MEDS: Acetaminophen 500 MG Tablet 1000 MG PO ×2 (06:21→13:03)
[2024-02-04] MEDS: Insulin Lispro 100 UNIT/ML INSULN.PEN SC ×2 (06:25→11:43)
[2024-02-04 06:46] LABS: Bedside Glucose 214 mg/dL (74-106)
[2024-02-04 07:01] LABS: Mean Corp Hgb Conc 32.3 g/dL (32-36); Mean Corpuscular Hgb 28.9 pg (27.0-32.0); Mean Corpuscular Volume 89.6 fL (81-99); Mean Platelet Vol. 11.2 fl (6.2-12.0); Platelet Count 193 K/mm3 (150-450); RBC Distribution Width CV 12.6 % (11.6-14.6); RBC Distribution Width SD 41.2 fl (35.1-43.9); Red Blood Count 3.46 M/mm3 (4.2-5.4); White Blood Count 7.9 K/mm3 (4.4-11.0)
[2024-02-04 07:07] VITALS: O2SAT 93
--- NOTE | 2024-02-04 07:09 | PCM.PN.ORT ---
Subjective Subjective The patient was sitting in bedside chair upon examination. Patient denies any chest pain, shortness of breath, dizziness, lightheadedness, nausea or vomiting, or calf pain. Pain is controlled on medications. No adverse overnight events. Patient states she has minimal pain so far. She does feel the pain is much better than the previous knee. Patient does live home alone and is concerned for discharge. Case management is currently on board for discharge planning to possible rehab unit. Objective Data Objective Data Vital Signs: Vital Signs Temp Pulse Resp BP Pulse Ox O2 Del Method O2 Flow Rate 97.8 F 68 16 108/64 95 Room Air 3 02/04/24 03:33 02/04/24 03:33 02/04/24 03:33 02/04/24 03:33 02/04/24 03:33 02/04/24 03:33 02/03/24 19:45 Oxygen Flow Rate (L/min) 3 Oxygen Delivery Method Room Air Weight: 104.326 kg Body Mass Index (BMI) 36.0 Intake & Output: Intake and Output for Last 24 Hours 02/02/24 02/03/24 02/04/24 23:59 23:59 23:59 Intake Total 3471.92 / 3471.92 650 / 650 Balance 3471.92 / 3471.92 650 / 650 Lab / Micro Data 02/04/24 06:19 01/13/24 07:23 Labs: Laboratory Results - last 24 hr 02/03/24 08:14: POC Glucose 161 H 02/03/24 13:13: POC Glucose 202 H 02/03/24 17:21: POC Glucose 387 H 02/04/24 06:19: WBC 7.9, RBC 3.46 L, Hgb 10.0 L, Hct 31.0 L, MCV 89.6, MCH 28.9, MCHC 32.3, RDW Std Deviation 41.2, RDW Coeff of Ranjith 12.6, Plt Count 193, MPV 11.2 02/04/24 06:24: POC Glucose 214 H Micro: Microbiology 01/13/24 07:23 Swab (Method) Nasal Screen MRSA/MSSA - Final Radiography Diagnostic Testing: Radiology Impression Knee X-Ray 02/03/24 12:45 IMPRESSION: Normal postoperative changes of the left knee with intact left metallic arthroplasty in the left knee joint and left patellofemoral articulation. Electronically Signed: Ulises Bermeo MD at 14:30 EDT , Physical Exam Narrative Vital signs stable and afebrile. SCDs and NEVILLE hose are in place bilaterally Patient is able to plantarflex and dorsiflex actively. Sensation is intact to light touch to saphenous, sural, superficial and deep peroneal, and tibial distribution. Dressings are clean dry and intact. Negative Homans bilaterally, negative signs and symptoms of DVT. Const alert, oriented x3 and no apparent distress Assessment & Plan Assessment/Plan (1) Status post total left knee replacement: PLAN: 1. S/P left robotic assisted total knee arthroplasty POD #1 2. Continue Pain Medications: Tylenol, meloxicam, oxycodone. Do not take any other nonsteroidal anti-inflammatories while using meloxicam/Mobic. 3. DVT Prophylaxis: Take 81 mg aspirin twice daily for 4 weeks postoperatively for DVT prophylaxis. Patient denies past history of DVT or pulmonary embolism. 4. PT/OT: Weightbearing as tolerated with walker. Appreciate recommendations from therapy for appropriate and safe discharge planning 5. H & H: 10.0/31.0, asymptomatic. Labs have been reviewed. Patient's vitals are stable. She denies dizziness or lightheadedness. Preoperatively her hemoglobin/hematocrit was 12.5/39.3. Awaiting BMP results as they are pending. 6. Currently on doxycycline for 2 weeks postoperatively due to elevated A1c greater than 7.0. I discussed with the patient potential side effects of doxycycline including sensitivity to the sunlight and increased risk of skin burn. Recommend patient take appropriate precautions. Also recommend patient to take probiotic while on the antibiotic. Patient voiced understanding agreement. 7. Encouraged Incentive Spirometry 8. Patient is aware of postoperative constipation that can occur from 1-3 days postoperatively. Will continue with senna 2 tablets twice daily until first bowel movement. Patient was advised if not having a bowel movement after day 3 she is to contact orthopedics so appropriate change can be made. Patient voiced understanding. 9. Continue postoperative medical treatment per medicine 10. Disposition: At this time I would like recommendations from physical therapy for appropriate and safe discharge planning. Patient does live home alone and is concern for fall and safety by herself. Case management is currently on board for discharge planning. Considering rehabilitation versus TCU. While in the hospital patient will continue to work with therapy. We will continue to monitor her labs. We will repeat labs tomorrow. Once we have appropriate plan for discharge then we can move forward for appropriate and safe discharge planning. I have reviewed the [place] Automated Rx Reporting System (OARRS) report for this patient for refill pattern and other prescriber involvement as part of the appropriate surveillance for the provision of acute and chronic controlled medications. The report was requested and reviewed on the date of this entry and was considered in the prescribing process. This dictation was created using voice recognition software. Phonetic and/or grammatical errors may exist.
--- NOTE | 2024-02-04 07:25 | PN.HOSP_ITS ---
Reason for Visit Reason for Visit: Diagnoses Type 2 diabetes mellitus without complications (02/03/24) Encounter for other preprocedural examination (02/03/24) Subjective Subjective Patient is a 73-year-old lady who underwent right total knee arthroplasty by Dr. Saavedra on 02/03/2024 hospitalist service was consulted to assist with management of patient medical comorbidities postoperatively Objective Data Objective Data Vital Signs: Vital Signs Temp Pulse Resp BP Pulse Ox O2 Del Method O2 Flow Rate 97.8 F 68 16 108/64 95 Room Air 3 02/04/24 03:33 02/04/24 03:33 02/04/24 03:33 02/04/24 03:33 02/04/24 03:33 02/04/24 03:33 02/03/24 19:45 Oxygen Flow Rate (L/min) 3 Oxygen Delivery Method Room Air Weight: 104.326 kg Body Mass Index (BMI) 36.0 Intake & Output: Intake and Output for Last 24 Hours 02/02/24 02/03/24 02/04/24 23:59 23:59 23:59 Intake Total 3471.92 / 3471.92 650 / 650 Balance 3471.92 / 3471.92 650 / 650 Lab / Micro Data 02/04/24 06:19 02/04/24 06:19 Labs: Laboratory Results - last 24 hr 02/03/24 08:14: POC Glucose 161 H 02/03/24 13:13: POC Glucose 202 H 02/03/24 17:21: POC Glucose 387 H 02/04/24 06:19: WBC 7.9, RBC 3.46 L, Hgb 10.0 L, Hct 31.0 L, MCV 89.6, MCH 28.9, MCHC 32.3, RDW Std Deviation 41.2, RDW Coeff of Ranjith 12.6, Plt Count 193, MPV 11.2 02/04/24 06:24: POC Glucose 214 H Micro: Microbiology 01/13/24 07:23 Swab (Method) Nasal Screen MRSA/MSSA - Final Radiography Diagnostic Testing: Radiology Impression Knee X-Ray 02/03/24 12:45 IMPRESSION: Normal postoperative changes of the left knee with intact left metallic arthroplasty in the left knee joint and left patellofemoral articulation. Electronically Signed: Ulises Bermeo MD at 14:30 EDT , Physical Exam Narrative GENERAL: cooperative HEENT: Atraumatic; normocephalic EYES; Anicteric, Normal Conjunctiva NECK; supple, normal thyroid, RESPIRATORY: Diminished to auscultation CARDIOVASCULAR: Regular S1 S2, GI: soft, normoactive bowel sounds, : No Renal angle tenderness; EXTREMITIES: No edema, no clubbing, MUSCULOSKELETAL: no muscle wasting NEURO: Awake; no lateralizing signs. SKIN: No Rash PSYCH; Flat affect Assessment & Plan Assessment/Plan (1) Status post total right knee replacement not using cement: PLAN: Plan Patient is a 73-year-old lady who underwent right total knee arthroplasty by Dr. Saavedra on 02/03/2024 hospitalist service was consulted to assist with management of patient medical comorbidities postoperatively 1. Status Minimally invasive left robotic total knee replacement By Manoj Saavedra on 02/03/24 on account of left knee primary osteoarthritis having failed medical therapy. Patient postoperative orders regarding pain management PT OT DVT prophylaxis defer to primary service 2. GERD ? On PPI continue 3. Dyslipidemia ?Patient is on statin therapy, continued at home dose 4. Class II obesity with BMI of 36 ? Complicating care weight loss advised 5. Diabetes mellitus type 2 ? Patient is on glimepiride as well as metformin Continued and placed on Accu- Cheks before meals and at bedtime with sliding scale coverage 6. Essential hypertension ? Patient is on HCTZ did continue 7. Anemia ? Secondary to chronic disorder?expected acute blood loss anemia following surgery monitoring H&H and transfuse if patient becomes symptomatic or hemoglobin falls below 7 8. DVT prophylaxis ? Defer to primary service Time spent in the patient's overall evaluation,decision-making process, review of diagnostic data, adjustment of management, discussion with other providers, nursing nursing and ancillary staff involved in patient's care documentation, 37 Minutes Charges/Coding Visit Charges Inpatient E&M: 82662 Subs Hosp L2
[2024-02-04 07:32] LABS: Anion Gap 6 (5-15); BUN 22 mg/dL (7-18); BUN/Creat Ratio 26.1 RATIO (10-20); Chloride 104 mmol/L (98-107); Creatinine, Serum 0.84 mg/dL (0.55-1.02); EST Glomerular Filtration Rate 71 mL/min (>60); Est Glom Filt Rate - Afr Amer 85 mL/min (>60); Glucose 229 mg/dL (74-106); Potassium 4.4 mmol/L (3.5-5.1); Sodium Level 137 mmol/L (136-145)
[2024-02-04 09:15] VITALS: BP 95/59; PULSE 70; RESP 16; TEMP 36.6; O2SAT 98
[2024-02-04] MEDS: Glimepiride 1 MG Tablet PO (09:19)
[2024-02-04] MEDS: Aspirin 81 MG TAB.CHEW PO (09:19)
[2024-02-04] MEDS: metFORMIN (XR) 500 MG Tablet PO (09:19)
[2024-02-04] MEDS: Senna/Docusate Sodium 1 Tablet 2 TABLET PO (09:19)
[2024-02-04] MEDS: Ensure Surgery 237 ML LIQUID PO ×2 (09:19→11:47)
[2024-02-04] MEDS: Calcium Carb/Vitamin D 1 TABLET Tablet PO (09:19)
[2024-02-04] MEDS: Famotidine 20 MG Tablet PO (09:20)
[2024-02-04] MEDS: Pantoprazole Sodium 40 MG Tablet PO (09:20)
[2024-02-04] MEDS: Lactobacillis Acidophilus 1 CAP PO (09:20)
--- NOTE | 2024-02-04 09:37 | CASEMGMT ---
Met with patient to complete MAURER form. MAURER form explained to patient who voiced understanding and signed form. Original form placed in pt?s chart and copy provided to patient. Arelis Morgan, Discharge Planning Asst
--- NOTE | 2024-02-04 10:11 | CASEMGMT ---
Social Work- SW met with pt to discuss preferences. Pt reports that she does not need a list, as she would like [facility] as FOC. SW provided education on observation status and coverage. SW provided education on rehab unit coverage, as pt reports that she lives alone, has no family, and her friends are out of town and does not feel comfortable d/c home. Pt is agreeable to RU referral. SW completed RU referral. Pt was accepted; pt advised. Physician and surgeon advised, as well as bedside nurse. Plan: [facility]
--- NOTE | 2024-02-04 10:46 | CASEMGMT ---
SWEETIE CHONG Assessment Face to Face with patient for initial transition planning/care coordination assessment. SWEETIE CHONG introduced self and role at [facility], pt voices understanding. Pt is A&Ox4 and is resting comfortably in the chair and is calm. Care providers, pharmacy, and demographics verified. Admitting dx: TKA LACE Strata: 1 PCP: Gabriela Meredith Specialists: Quentin (Ortho) Preferred Pharmacy: [facility] Insurance: [facility] A/B, [employer] Prescription Benefit: Yes LNOK: Janeth De Souza (Friend) Living Arrangements: Pt lives alone in a single story home with a basement with bilateral handrails with a FFSU and 2 steps to enter the home ADLs/IADLs: Ind at baseline Transportation: Self, friend DME: [employer] with sufficient supplies. Cane. W/C. FWW. HHC/SNF: Hx at [facility] in 2021 and HH set up by [facility] after DC Pt?s goal: Return to PLOF Plan: Pt reports that she does not feel safe returning home alone at time of DC and is wanting further therapy. Pt states that she wants to go to the [facility] RU. SW is aware. Report given to MS3 SWEETIE CHONG. Echo Fonseca RN, CM
[2024-02-04 11:20] LABS: Bedside Glucose 270 mg/dL (74-106)
--- NOTE | 2024-02-04 12:32 | PCM.DC ---
Discharge Instructions Diet Discharge Diet: No restrictions Activity Discharge Activity: May Not Drive (No driving until you are off all narcotics and can walk 100 feet with use of cane) May shower in (days): 1 (Please turn dressing away from water. Okay to get wet as long as dressing is intact to skin.) Ice area for (Minutes): 20 (Every 1-2 hours while awake. Please place barrier between the skin and ice pack.) Weight Bearing Status: Weight bearing as tolerated Keep extremity elevated above heart level: Operative Extremity Dressing / Incision Call your doctor if your incision/area has: Continuous Slow Oozing, Sudden Increased Bleeding, Increased Pain/ Swelling, Increased Redness and Foul Smelling Discharge Call your doctor if you observe: Fever of 101 or Higher, Coldness, Increased Pain, Numbness or Tingling, Change in Color, Shortness of breath, Chest pain, Calf discomfort and Uncontrolled pain Remove Dressing in: 4 days (Remove dressing on February 08, 2024.) Additional Dressing/Incision Instructions:: Follow [facility] Post-op Instructions. Once postoperative dressing has been removed only use gentle soap and water over the incision. Do not use any ointments, Neosporin, salves, alcohol pads over the incision for 6 weeks postoperatively. Do not submerge underwater for 6 weeks postoperatively. Continue with NEVILLE hose/elastic stockings for 2 weeks postoperatively. May remove at nighttime but needs to be placed back on the leg during the day. Continue doxycycline for 2 weeks postoperatively with stop date on February 17, 2024 due to elevated A1c greater than 7.0. You are more sensitive to the sunlight and should take appropriate precautions. Also recommend probiotic while on the antibiotic. Do NOT use alcohol with narcotic pain medication. Do NOT make important decisions while taking narcotic medication. If you have problems with taking your medication (rash, itching, nausea, etc.) call the office at once. Follow Up Care Test Results: Test results from this visit will be discussed in further detail at your follow-up appointment, if applicable. Discharge Plan Admission Admit Date/Time: 02/03/24 07:02 Attending Provider: Ismael Duke Primary Care Provider: Gabriela Meredith Consulting Providers: Gabriela Meredith; Tom Dunn; Manoj Saavedra Discharge Orders/Prescriptions Prescriptions: New acetaminophen 500 mg Tablet 1,000 mg PO Q8 14 Days Qty: 84 0RF Rx Instructions: Do not take more than 3000 mg Tylenol in a 24-hour period. aspirin 81 mg capsule 81 mg PO BIDCM 30 Days Qty: 60 0RF Rx Instructions: Take 81 mg aspirin twice daily for 4 weeks postoperatively for DVT prophylaxis. meloxicam 7.5 mg Tablet 7.5 mg PO BIDCM 30 Days Qty: 60 0RF Rx Instructions: Do not take any other nonsteroidal anti-inflammatories while using meloxicam/Mobic. doxycycline monohydrate 100 mg Capsule 100 mg PO BID 14 Days Qty: 28 0RF Rx Instructions: Take for 2 weeks postoperatively with finish date on February 17, 2024 oxycodone 5 mg Tablet 5 - 10 mg PO Q4H PRN PRN (Reason: Pain Score 4-10) 7 Days Qty: 0 0RF Rx Instructions: Take 1-2 tablets every 4 hours as needed for breakthrough pain. sennosides-docusate sodium [Stimulant Laxative Plus] 8.6-50 mg Tablet 2 tab PO BID 3 Days Qty: 12 0RF Rx Instructions: Take until first bowel movement, then as needed Continued omeprazole 40 mg capsule,delayed release(DR/EC) 40 mg PO DAILY glimepiride 1 mg tablet 1 mg PO DAILY alendronate 35 mg tablet 35 mg PO LEY Patient Comments: TAKE 1 TABLET BY MOUTH ONCE WEEKLY hydrochlorothiazide 25 mg tablet 25 mg PO DAILY metformin 500 mg tablet extended release 24 hr 1,000 mg PO BID coenzyme Q10 [CoQ-10] 100 mg Capsule 100 mg PO BID rosuvastatin 5 mg tablet 5 mg PO DAILY calcium carbonate-vitamin D3 [Calcium 600 + D(3)] 600 mg-10 mcg (400 unit) Tablet 1 tab PO BID Probiotic 10 billion cell Capsule 10,000 mmu cells PO DAILY albuterol sulfate [Ventolin HFA] 90 mcg/actuation Hfa Aerosol Inhaler 2 puff INHALATION Q6H PRN (Reason: ASTHMA) Zyrtec 10 mg capsule 10 mg PO QHS cholecalciferol (vitamin D3) [Vitamin D3] 10 mcg (400 unit) tablet 10 mcg PO DAILY pseudoephedrine-guaifenesin [Mucinex D] 60-600 mg tablet extended release 12 hr 1 tab PO Q12H PRN (Reason: cold symptoms) Discontinued naproxen sodium [Aleve] 220 mg capsule 220 mg PO BID PRN (Reason: pain) Referrals / Follow Up: Gabriela Meredith DO [Primary Care Provider] - Johana Sellers PA [Med Staff - [facility] Practice Prof] - 02/17/24 8:30 am Disposition Disposition (needs filled in before D/C Order can be placed): Inpatient Rehab Unit/Facility
[2024-02-04] MEDS: Doxycycline 100 MG CAPSULE PO (13:03)
--- NOTE | 2024-02-04 13:09 | CASEMGMT ---
Social Work Physician updated on acceptance at and pt is ready for discharge today.? SW met with pt and they are agreeable to discharge plan as stated above.? Bedside nurse notified of discharge. Disposition:[facility] Arzola
[2024-02-04 14:23] VITALS: BP 114/75; PULSE 75; RESP 16; TEMP 36.7; O2SAT 98
--- NOTE | 2024-02-04 14:37 | NURSING ---
REPORT GIVEN TO REHAB UNIT
--- NOTE | 2024-02-04 15:40 | CHAPLAIN ---
Type of Pastoral Visit ___ Initial Visit ___ Follow-up Visit ___ On-call Visit ___ General Patient Visit ___ Spiritual Assessment ___ Family Conference ___ Bereavement ___ Rapid Response ___ Code Blue ___ Other (describe below) Pastoral Care Referral From ___ Patient ___ Family ___ Nurse ___ Physician ___ Assistant Sales Manager ___ Home Care Specialist ___ Other (describe below) Sacrament/Intervention ___ Active listening ___ Anointing ___ Jehovah'S Witness ___ Bereavement ___ Communion ___ Lillie exploration ___ ___ Life review ___ Prayer ___ Reconciliation ___ Sacrament of Sick ___ Supportive presence ___ Wedding ___ Other (describe below) Pastoral Comments patient was discharged before this senior group manager was able to visit her
== END 2024-02-04 14:39 ==
LOC: SDC 07:41 → MS3 18:29 → SDC 02-04 08:48 → AC 02-04 08:49 → SDC 02-04 08:49 → MS3 02-04 08:49
PROVIDERS: Anesthesiology; Admitting Provider Specialist; Referring Provider Specialist; Visit Provider Internal Medicine
PROC: 0SRD0JZ Replacement of Left Knee Joint with Synthetic Substitute, Open Approach (ICD-10-PCS; CPT 27447; principal; 2024-02-03 09:30)
DX: M17.12 Unilateral primary osteoarthritis, left knee (principal); E11.9 Type 2 diabetes mellitus without complications; J45.909 Unspecified asthma, uncomplicated; R25.1 Tremor, unspecified; M81.0 Age-related osteoporosis without current pathological fracture; K21.9 Gastro-esophageal reflux disease without esophagitis; Z79.84 Long term (current) use of oral hypoglycemic drugs; I10 Essential (primary) hypertension; E78.5 Hyperlipidemia, unspecified; E66.9 Obesity, unspecified; Z68.36 Body mass index [BMI] 36.0-36.9, adult; D63.8 Anemia in other chronic diseases classified elsewhere; Z79.899 Other long term (current) drug therapy
CPT/HCPCS: 27447; S2900; 01402; 64447; 96365; 96366; 36415; 73560; 80048; 80053; 80061; 82306; 82962; 83036; 83735; 84443; 85025; 85027; 87081; 88305; 88311; 93005; 94668; 97162; 97166; 99221; 99252; C1776; J7120; G0378; G0463

== ENCOUNTER 2024-02-04 15:00 | Inpatient (IN) | payer MEDICARE, OTHER, SELFPAY ==
[2024-02-04 15:27] VITALS: BP 114/57; PULSE 73; RESP 16; TEMP 36.7; O2SAT 99; BMI 37.1
--- NOTE | 2024-02-04 15:32 | HP.PCM_ITS ---
HPI - General General Date of Admission: 02/04/24 Date of Service: 02/04/24 Chief Complaint: Debility post L TKA HPI Narrative ROSALINA NOE, is a 73 YO F with a past medical history of diabetes mellitus type 2, osteoarthritis, asthma, osteoporosis, GERD, hypertension, osteoporosis, chronic low back pain, irritable bowel syndrome and obesity whom had a L TKA by Dr. Saavedra on 02/03/2024. Postoperatively the hemoglobin dropped to 10 from acute surgical blood loss. There were no other significant postoperative complications. She lives alone and did not feel safe going home at [place]. She was transferred to the acute inpt rehab unit at [facility] on 02/04/24 for 3 hours of therapy daily to restore function/independence at or near her level prior to the surgery. She has a basement in her house but, she does not need to go to the basement. She lives alone. No children. She was using a cane prior to the surgery only for walking outside on uneven ground. EMR was reviewed along with all recent labs. Blood sugars have not been control led while in the hospital. Prior to lunch today the blood sugar was 270. [facility] Medical History (Updated 02/04/24 @ 16:[address] Macy Calderon, ) Osteoporosis Allergic rhinitis Obesity (BMI 30-39.9) Osteoarthritis Diabetes mellitus type 2, noninsulin dependent Loss of hearing UTI (urinary tract infection) Low iron High cholesterol Dietary restriction History of pain when walking Hypertension History of edema Wears glasses Post-menopausal Back pain Injury of back History of IBS Gastric reflux Non-smoker Asthma Leg cramps History of trigger finger History of deviated nasal septum Home Medications ?Medication ?Instructions ?Recorded ?Last Taken ?Type Lactobacillus acidophilus 10 10,000 mmu cells PO DAILY 09/19/21 02/04/24 History billion cell capsule (Probiotic) supplement albuterol sulfate 90 mcg/actuation 2 puff inhalation Q6H PRN ASTHMA 09/19/21 Unknown History aerosol inhaler (Ventolin HFA) alendronate 35 mg tablet 35 mg PO LEY Bone protection 09/19/21 02/02/24 History calcium 600 mg (as 1 tab PO BID supplement 09/19/21 02/04/24 History carbonate)-vitamin D3 10 mcg (400 unit) tablet (Calcium 600 + D(3)) coenzyme Q10 100 mg capsule 100 mg PO BID supplement 09/19/21 Unknown History (CoQ-10) glimepiride 1 mg tablet 1 mg PO DAILY Blood glucose 09/19/21 02/04/24 History hydrochlorothiazide 25 mg tablet 25 mg PO DAILY BP 09/19/21 Unknown History metformin 500 mg tablet,extended 1,000 mg PO BID Glucose 09/19/21 02/04/24 H istory release 24 hr omeprazole 40 mg capsule,delayed 40 mg PO DAILY GERD 09/19/21 02/04/24 History release rosuvastatin 5 mg tablet 5 mg PO DAILY Cholestrol 09/19/21 02/03/24 History cetirizine 10 mg capsule (Zyrtec) 10 mg PO QHS Allergies 01/08/24 02/03/24 History cholecalciferol (vitamin D3) 10 10 mcg PO DAILY supplement 01/08/24 Unknown History mcg (400 unit) tablet (Vitamin D3) pseudoephedrine-guaifenesin ER 60 1 tab PO Q12H PRN cold symptoms 01/08/24 Unknown History mg-600 mg tablet,extend release 12hr (Mucinex D) acetaminophen 500 mg tablet 1,000 mg (2 x 500 mg) PO Q8 Pain 02/04/24 02/04/24 Rx 14 days #84 tabs aspirin 81 mg capsule 81 mg PO BIDCM Heart health 30 02/04/24 02/04/24 Rx days #60 caps doxycycline monohydrate 100 mg 100 mg PO BID Antibiotic 14 days 02/04/24 02/04/24 Rx capsule #28 caps meloxicam 7.5 mg tablet 7.5 mg PO BIDCM Joint pain 30 days 02/04/24 Unknown Rx #60 tabs oxycodone 5 mg tablet 5 - 10 mg (1 - 2 x 5 mg) PO Q4H 02/04/24 Unknown Rx PRN PRN Pain Score 4-10 7 days #0 tabs sennosides 8.6 mg-docusate sodium 2 tab PO BID Stool softner 3 days 02/04/24 02/04/24 Rx 50 mg tablet (Stimulant Laxative #12 tabs Plus) Allergy/AdvReac Type Severity Reaction Status Date / Time cefdinir AdvReac Abd Verified 02/03/24 08:10 cramps/diarrhea clarithromycin (From Biaxin) AdvReac Abd Verified 02/03/24 08:10 cramps/diarrhea nitrofurantoin (From AdvReac Abd Verified 02/03/24 08:10 Macrobid) cramps/diarrhea sulfamethoxazole (From AdvReac Abd Verified 02/03/24 08:10 Bactrim) cramps/diarrhea trimethoprim (From Bactrim) AdvReac Abd Verified 02/03/24 08:10 cramps/diarrhea Family History (Updated 02/04/24 @ 15:[address] Macy Calderon DO) Father Heart disease of congestive heart failure in his 80s Brother Epilepsy Surgical History (Updated 02/04/24 @ 16:[address] Macy Calderon DO) Status post right knee replacement Hx of total knee arthroplasty Hx of foot surgery Hx of cholecystectomy Hx of hysterectomy Hx of tonsillectomy Social History (Updated 02/04/24 @ 15:[address] Macy Calderon DO) household members: none housing: house number of children: 0 current occupational status: retired current occupation: Previously worked at [employer] for 40 years Smoking Status: Never smoker alcohol intake: never ROS Constitutional Constitutional: Denies anorexia, change in weight, chills, fatigue, fever(s), night sweats or weakness Eyes Eyes: Denies blurry vision, change in vision, eye pain or loss of vision ENT HEENT: Denies abnormal hearing, dysphagia, headache(s), hearing loss, nasal congestion or sore throat Cardiovascular Cardiovascular: Denies chest pain, dyspnea on exertion, edema, lightheadedness, orthopnea, palpitations, paroxysmal nocturnal dyspnea or syncope Respiratory/Chest Respiratory/Chest: Denies cough, dyspnea, shortness of breath at rest, shortness of breath with exertion or wheezing Gastrointestinal Gastrointestinal: Reports constipation, diarrhea and other Details: She has alternating diarrhea and constipation secondary to irritable bowel syndrome. ; Denies abdominal pain, dyspepsia, hematemesis, hematochezia, nausea or vomiting Genitourinary Genitourinary: Denies dysuria, hematuria, nocturia, urinary frequency, urinary hesitancy, urinary incontinence or urinary urgency Musculoskeletal Musculoskeletal: Reports back pain, difficulty walking, joint pain, joint swelling, muscle cramps, stiffness, tremors and other Details: Occasional tremor of the left hand only. ; Denies neck pain Integumentary Integumentary: Reports wounds and other Details: Surgical incision left knee due to left total knee arthroplasty on 02/03/2024 ; Denies hirsutism, jaundice, non-healing lesions or rash Neurologic Neurologic: Reports tremor(s); Denies confusion, disequilibrium, dizziness, focal weakness, headache(s), paresthesias or seizures Psychiatric Psychiatric: Denies anxiety, depression, homicidal ideation or suicidal ideation Endocrine Endocrinology: Denies change in body appearance, polydipsia or polyuria Hematologic/Lymphatic Hematologic/Lymphatic: Denies easy bleeding, easy bruising or lymphadenopathy Allergic/Immunologic Allergic/Immunologic: Reports rhinitis and asthma; Denies eczemia Vital Signs Vital Signs Vital Signs: 02/04/24 15:27 Temperature 98.1 F Temperature Source Temporal Pulse Rate 73 Respiratory Rate 16 Blood Pressure 114/57 L Blood Pressure Mean 76 Blood Pressure Source Monitor Blood Pressure Position Semi-Fowlers Blood Pressure Location Left Arm Pulse Ox 99 Oxygen Delivery Method Room Air Physical Exam Const alert, oriented x3, no apparent distress and healthy appearing Constitutional Narrative: Sitting in the recliner at the bedside. General Appearance: cooperative, well kempt and in distress; Negative for anxious HEENT hearing grossly normal bilaterally HEENT Narrative: Mucous membranes are little dry. No evidence of thrush. Eyes PERRL, EOMs intact bilaterally, conjunctivae normal and no scleral icterus Eyes Narrative: No visual loss. No discharge from the eyes. She is unable to close the R eye at will.......it does close when she is sleeping......this has been long standing. General Eye: normal appearance of both eyes Neck supple, no JVD, thyroid normal, No nodes and no carotid bruits General: trachea midline Chest Chest: symmetrical chest wall rise Resp normal respiratory effort, normal air movement and clear to auscultation bilaterally Effort and Inspection: able to speak in complete sentences Cardio regular rate, regular rhythm, S1 normal heart sound, S2 normal heart sound, no murmurs, no rub and no gallops Cardio Narrative: No ectopy GI normal to inspection, nondistended, normoactive bowel sounds, soft to palpation and non-tender no CVA tenderness Back/Spine Back/Spine Narrative: She has some pain with palpation over the lumbar spine and lumbosacral paravertebral muscles. This is chronic. General Back: Negative for CVA tenderness Extremity Extremity Narrative: No clubbing, no cyanosis. No calf pain with palpation. She has mild left ankle edema and this is the operative side. Denies any history of VTE. She is complaining of some pain in the mid upper left thigh. She does not describe this as burning pain and there are no electric shocklike pains. She tells me her pain is adequately controlled. Skin Skin Narrative: There is a Mepilex over the incision which is not to be removed for several more days. The left knee is swollen. General Skin Exam: Negative for jaundice Rashes: No no rashes Neuro oriented x3, CN's II-XII intact bilaterally, moves all extremities, no focal motor deficits and no sensory deficits noted Neuro Narrative: No radicular pain into her legs. Psych mental status grossly normal, thought process normal, cooperative, affect normal, speech normal, denies hallucinations, denies homicidal ideation and denies suicidal ideation Appearance: appropriate and well kempt Attitude: calm Activity / Motor Behavior: appropriate eye contact Assessment & Plan Assessment/Plan (1) Debility: (2) Status post total left knee replacement: (3) Acute blood loss as cause of postoperative anemia: (4) Diabetes mellitus type 2, noninsulin dependent: (5) Osteoarthritis: QUALIFIERS: Osteoarthritis location: multiple joints Osteoarthritis type: primary Qualified Code(s): M15.0 - Primary generalized (osteo)arthritis (6) Obesity (BMI 30-39.9): (7) Osteoporosis: QUALIFIERS: Osteoporosis type: age-related Presence of current pathological fracture: unspecified Qualified Code(s): M81.0 - Age-related osteoporosis without current pathological fracture PLAN: Plan PLAN PT for gait stability OT for ADL's ST for evaluation Analgesics as needed Bowel protocol Fall precautions Assess for Anxiety/Depression GI prophylaxis -pantoprazole DVT prophylaxis with aspirin 81 mg p.o. twice daily per orthopedic service Follow up with Dr. Meredith and Dr. Saavedra following DC from IP Rehab AM lab including CMP, CBC, Mag and Phos Blood sugars are not currently controlled. Will add sliding insulin scale with meals. Last hemoglobin A1c which was recent was 7.1. Blood sugars are likely elevated secondary to stress of surgery.
--- NOTE | 2024-02-04 16:12 | PCM.RU.PYE ---
Admission Information Primary Diagnosis:: Physical debility post left total knee arthroplasty Status Changes from Prescreening?: No changes Identified Actual Problem List:: Skin Intergrity, Pain, ALteration in Cmfrt, Bowel, Constipation, Alteration in Sleep, Mobility Impaired, Self Care Deficit, Diabetes, Hyperglycemia, Fluid Change-Dehydration and Alteration-Leisure Activ. Potential Problem List:: DVT, Bleeding, Infection, UTI, Aspiration, Falls, Skin Integrity and Depression Risk of Complications DVT: NEVILLE Marcioe and - (ASA 81 mg p.o. twice daily per orthopedics) Bleeding: Monitor Lab Values, Nursing to Teach Precautions for anti-coagulation therapy., Wound, if applicable, to be assessed every shift. and Stroke patients assessed for lethargy or change in status. Infection: Clinical Staff to Monitor for S/S of infection: and S/S of infection include fever, redness, warmth, etc. Urinary Tract Infection: Monitor for frequency, burning, discomfort, or incontinence. and Nursing will obtain urine sample for urinalysis and C&S when ordered. Aspiration: Clinical staff will monitor for coughing, drooling, congestion., Speech will evaluate swallowing and dsyphasia. and Nursing will monitor patient swallowing during meals. Falls: Patient will be evaluated for Fall Precautions and Patient will be placed on Fall Precautions as indicated per protocol. Skin Breakdown: Nursing will assess skin daily using assessment tool. and Nursing will place on Skin Breakdown Precautions as indicated. Pain: Clinical staff will assess patient's pain level per protocol., Medications will be given, if needed, and the pain level reassessed. and Other methods: Massage, distraction, decrease stimulus, etc. used PRN. Plan of Care Patient requires physician specializing in physical medicine and rehab oversight to provide close medical supervision of rehab issues including: Pain Management, Sleep Problems, Bowel and Bladder, Medical and co-morbidity Management, DVT prophylaxis, Rehabilitation Leadership and Coordination of treatment team Patient needs Physical Therapy: For a minimum of 1 hour and At least 5 out of 7 days Patient needs Physical Therapy to improve:: Mobility, Strengthening, Transfers, Stretching, ROM, Endurance, Stairs, Gait and Balance Patient needs Occupational Therapy: For a minimum of 1 hour and At least 5 out of 7 days Patient needs Occupational Therapy to improve ADL's incl.: Eating, Grooming, Bathing, Dressing, Toileting, Toilet transfers, Community Reintegration, Higher functioning activities, Household tasks, Adaptive Equipment, Splinting and Other activities as determined Patient requires 24/7 Rehabilitation Nursing for: Pain Issues, Identifying and preventing risk factors, Monitoring and reporting current medical conditions, Assisting with ambulation, transfer, and all ADL's, Teaching patients about disease process and medications, Family teaching, Providing safe environment, Bowel and Bladder Issues, Skin integrity and Medication Management Patient needs Manager Real Estate/ Case Management for: Discharge Planning, Arranging Home Equipment or Services and Family Interventions Patient needs Dietary and Nutrition Services for: Adequate Nutrition, Nutritional Supplements and Nutritional Education Goals Goals Patient will remain: free from falls Patient will perform eating at: MOD I level of assist. Patient will perform bed mobility at: MOD I level of assist. Patient will complete transfers from bed to chair at: MOD I level of assist. Patient will ambulate: - (350 feet with least restrictive device at mod I on various surfaces) Patient will complete upper body dressing at: - (Independently) Patient will complete lower body dressing at: MOD I level of assist. (Using adaptive equipment as needed to increased self-care) Patient will complete toilet transfer at: MOD I level of assist. Patient will complete toileting at: MOD I level of assist. Patient will perform bathing at: MOD I level of assist. (Using adaptive equipment as needed) Patient will perform Tub/Shower transfer at: - (Supervision) Patient will complete grooming at: MOD I level of assist. (While standing at the sink.) Patient will complete home management skills at: MOD I level of assist. Patient will achieve: 12 stairs (With 2 handrails at standby assist) Patient will have pain level of: of 3 or less Patient's skin will: remain intact Patient will receive: adequate nutrition. Discharge Planning Pt Prognosis for Sig. Practical Improv. w/in Reasonable Time: Good Estimated Length of stay (days): 14 Anticipated D/C Destination: Home with Home Health Was Preadmission Assessment Accurate?: Yes
[2024-02-04] MEDS: Meloxicam 7.5 MG Tablet PO (16:51)
[2024-02-04] MEDS: Aspirin 81 MG TAB.CHEW PO (16:51)
[2024-02-04] MEDS: metFORMIN (XR) 500 MG Tablet 1000 MG PO (16:51)
[2024-02-04] MEDS: Calcium Carbonate 500 MG Tablet PO (16:54)
[2024-02-04 17:26] VITALS: O2SAT 97
[2024-02-04 18:00] VITALS: BP 106/53; PULSE 77; RESP 16; TEMP 37.1; O2SAT 94
[2024-02-04] MEDS: oxyCODONE 5 MG Tablet PO (21:31)
[2024-02-04] MEDS: Acetaminophen 500 MG Tablet 1000 MG PO (21:31)
[2024-02-04] MEDS: Doxycycline 100 MG CAPSULE PO (21:32)
[2024-02-04] MEDS: Loratadine 10 MG Tablet PO (21:32)
[2024-02-04] MEDS: Atorvastatin Calcium 10 MG Tablet PO (21:32)
[2024-02-04] MEDS: Insulin Lispro 100 UNIT/ML INSULN.PEN SC (21:32)
[2024-02-04] MEDS: 0.9% Saline Lock 10 ML Syringe IV (21:33)
[2024-02-04] MEDS: Psyllium 1 PACKET PO (21:33)
[2024-02-04 22:32] LABS: Bedside Glucose 221 mg/dL (74-106)
[2024-02-05 05:35] VITALS: BP 119/60; PULSE 87; RESP 18; TEMP 36.7; O2SAT 94
[2024-02-05] MEDS: Acetaminophen 500 MG Tablet 1000 MG PO ×3 (05:40→20:34)
[2024-02-05 05:47] VITALS: BMI 37.0
[2024-02-05 05:50] VITALS: BP 120/74; PULSE 78; RESP 15; O2SAT 97
--- NOTE | 2024-02-05 05:50 | NURSING ---
Patient was finishing up with bath in bathroom and had prior had nausea she reported which she attributed to the pain pill she took at bedtime. She stated she felt like she was going to throw up when she stood with LEGAL SERVICES MANAGER and LEGAL SERVICES MANAGER had her sit back down on the toilet. Patient then went diaphoretic, pale but still responsive but lethargic. Episode lasted about 1 minute and VS taken which are recorded and all WNL. Patient transferred back to bed x 2 assist via w/c. Patient given crackers and will monitor.
[2024-02-05 06:14] LABS: Absolute Lymphocyte Count 0.69 X10^3/uL (0.83-4.51); Absolute Neutrophil Count 4.1 X10^3/uL (2.0-7.7); Basophil# 0.04 X10^3/uL; Basophil% 0.7 % (0-1); Eosinophil# 0.06 X10^3/uL; Eosinophils% 1.1 % (0-5); Hematocrit 30.1 % (37-47); Hemoglobin 9.9 g/dL (12.0-15.0); Lymphocyte # 0.69 X10^3/ul (0.83-4.51); Lymphocyte % 12.5 % (19-41); Mean Corp Hgb Conc 32.9 g/dL (32-36); Mean Corpuscular Hgb 29.4 pg (27.0-32.0); Mean Corpuscular Volume 89.3 fL (81-99); Mean Platelet Vol. 11.2 fl (6.2-12.0); Monocyte# 0.59 X10^3/uL; Monocyte% 10.6 % (0-10); NRBC Flagged by Analyzer 0 % (0-5); Neutrophil # 4.14 X10^3/uL (2.7-7.7); Neutrophil % 74.7 % (47-70); Platelet Count 181 K/mm3 (150-450); RBC Distribution Width CV 12.9 % (11.6-14.6); RBC Distribution Width SD 42.2 fl (35.1-43.9); Red Blood Count 3.37 M/mm3 (4.2-5.4); White Blood Count 5.5 K/mm3 (4.4-11.0)
[2024-02-05 06:32] LABS: Bedside Glucose 247 mg/dL (74-106)
[2024-02-05 06:38] LABS: AST(SGOT) 97 U/L (15-37); Alanine Aminotransfer ALT/SGPT 102 U/L (13-56); Albumin, Serum 2.9 g/dL (3.2-5.0); Alkaline Phosphatase 84 U/L (45-117); Anion Gap 5 (5-15); BUN 25 mg/dL (7-18); Calcium,Total 9.3 mg/dL (8.5-10.1); Chloride 103 mmol/L (98-107); Creatinine, Serum 0.81 mg/dL (0.55-1.02); EST Glomerular Filtration Rate 74 mL/min (>60); Est Glom Filt Rate - Afr Amer 90 mL/min (>60); Estimated Creatinine Clearance 77.64 ml/min; Globulin 2.9 g/dL (2.2-4.2); Glucose 227 mg/dL (74-106); Magnesium 1.8 mg/dL (1.6-2.6); Phosphorus 3.7 mg/dL (2.5-4.9); Potassium 4.4 mmol/L (3.5-5.1); Protein, Total 5.8 g/dL (6.4-8.2); Sodium Level 133 mmol/L (136-145)
[2024-02-05] MEDS: 0.9% Saline Lock 10 ML Syringe IV (07:05)
[2024-02-05] MEDS: Ondansetron 4 MG/2 ML Vial IV (07:05)
[2024-02-05] MEDS: Insulin Lispro 100 UNIT/ML INSULN.PEN SC ×4 (09:16→20:41)
[2024-02-05] MEDS: Cholecalciferol (VIT D3) 25 MCG TABLET (1,000 UNITS) PO (09:17)
[2024-02-05] MEDS: Lactobacillis Acidophilus 1 CAP PO (09:17)
[2024-02-05] MEDS: Doxycycline 100 MG CAPSULE PO ×2 (09:17→20:36)
[2024-02-05] MEDS: Meloxicam 7.5 MG Tablet PO ×2 (09:17→17:04)
[2024-02-05] MEDS: hydroCHLOROthiazide 25 MG Tablet PO (09:17)
[2024-02-05] MEDS: Aspirin 81 MG TAB.CHEW PO ×2 (09:17→17:04)
[2024-02-05] MEDS: Calcium Carbonate 500 MG Tablet PO ×2 (09:17→17:04)
[2024-02-05] MEDS: Pantoprazole Sodium 40 MG Tablet PO (09:17)
[2024-02-05] MEDS: metFORMIN (XR) 500 MG Tablet 1000 MG PO ×2 (09:18→17:03)
[2024-02-05] MEDS: traMADol 50 MG Tablet PO ×2 (09:18→20:35)
[2024-02-05] MEDS: Glimepiride 1 MG Tablet PO (09:18)
[2024-02-05] MEDS: Psyllium 1 PACKET PO ×2 (09:18→20:36)
[2024-02-05 11:38] LABS: Bedside Glucose 241 mg/dL (74-106)
[2024-02-05] MEDS: Ondansetron ODT 4 MG Tablet PO ×2 (13:05→23:16)
--- NOTE | 2024-02-05 15:48 | CHAPLAIN ---
Type of Pastoral Visit _x__ Initial Visit ___ Follow-up Visit ___ On-call Visit ___ General Patient Visit ___ Spiritual Assessment ___ Family Conference ___ Bereavement ___ Rapid Response ___ Code Blue ___ Other (describe below) Pastoral Care Referral From _x__ Patient ___ Family ___ Nurse ___ Physician ___ Cyber Security Analyst ___ Analytics Developer ___ Other (describe below) Sacrament/Intervention _x__ Active listening ___ Anointing ___ Religion ___ Bereavement ___ Communion _x__ Lillie exploration ___ _x__ Life review _x__ Prayer ___ Reconciliation ___ Sacrament of Sick ___ Supportive presence ___ Wedding ___ Other (describe below) Pastoral Comments patient is welcoming and states that this is her second knee surgery so she has expectations on how recovery goes; pt shares optimism about the process and especially because I have so many people praying for me ; pt is not connected to a lillie community but 'reads the Bible and the study every day and wouldn't know what to do without it'; pt is alone with just one brother of whom she is not close; so having this rehab is important to her; pt welcomes conversation and spiritual care support; prayer and presence given
[2024-02-05 16:53] LABS: Bedside Glucose 198 mg/dL (74-106)
[2024-02-05 18:00] VITALS: BP 108/68; PULSE 87; RESP 14; TEMP 36.6; O2SAT 95
[2024-02-05 20:30] VITALS: PULSE 87; RESP 14; O2SAT 95
[2024-02-05] MEDS: Loratadine 10 MG Tablet PO (20:36)
[2024-02-05] MEDS: Senna/Docusate Sodium 1 Tablet 2 TABLET PO (20:36)
[2024-02-05] MEDS: Atorvastatin Calcium 10 MG Tablet PO (20:36)
[2024-02-05 22:15] LABS: Bedside Glucose 229 mg/dL (74-106)
--- NOTE | 2024-02-06 03:25 | NURSING ---
Reviewed and agree with Stiven LEPE, documentation and assessment charting.
[2024-02-06] MEDS: Acetaminophen 500 MG Tablet 1000 MG PO ×3 (05:07→20:40)
[2024-02-06] MEDS: Insulin Lispro 100 UNIT/ML INSULN.PEN SC ×3 (06:03→20:51)
[2024-02-06 06:07] VITALS: BP 112/51; PULSE 82; RESP 16; TEMP 36.9; O2SAT 93
[2024-02-06 07:28] LABS: Bedside Glucose 183 mg/dL (74-106)
[2024-02-06 07:53] VITALS: O2SAT 97
[2024-02-06] MEDS: Pantoprazole Sodium 40 MG Tablet PO (08:10)
[2024-02-06] MEDS: metFORMIN (XR) 500 MG Tablet 1000 MG PO ×2 (08:10→17:46)
[2024-02-06] MEDS: Calcium Carbonate 500 MG Tablet PO ×2 (08:10→17:47)
[2024-02-06] MEDS: Lactobacillis Acidophilus 1 CAP PO (08:10)
[2024-02-06] MEDS: Glimepiride 1 MG Tablet PO ×2 (08:10→11:27)
[2024-02-06] MEDS: hydroCHLOROthiazide 25 MG Tablet PO (08:10)
[2024-02-06] MEDS: Meloxicam 7.5 MG Tablet PO ×2 (08:10→17:46)
[2024-02-06] MEDS: Cholecalciferol (VIT D3) 25 MCG TABLET (1,000 UNITS) PO (08:10)
[2024-02-06] MEDS: Aspirin 81 MG TAB.CHEW PO ×2 (08:10→17:46)
[2024-02-06] MEDS: Doxycycline 100 MG CAPSULE PO ×2 (08:10→20:37)
[2024-02-06] MEDS: Psyllium 1 PACKET PO ×2 (08:10→20:37)
[2024-02-06] MEDS: Senna/Docusate Sodium 1 Tablet 2 TABLET PO ×2 (08:13→20:37)
[2024-02-06] MEDS: traMADol 50 MG Tablet PO ×2 (08:18→21:25)
--- NOTE | 2024-02-06 09:01 | PCM.PROGNOTE ---
Subjective Subjective Celia was seen on team rounds today. One of her friends was present in the room for rounds. Afebrile VSS - Maintaining appropriate oxygen saturation on RA Oral intake - FOOD good FLUIDS good The blood sugar record was reviewed. Blood sugars are not adequately controlled. Current diabetic agents include Amaryl 1 mg p.o. every morning and Glucophage 1000 mg twice daily. She is also on sliding scale insulin before meals and at bedtime. Discussed with nursing - no problems that need addressed Reviewed the THERAPY notes Medication list reviewed. Tells me that the pain control with Tramadol is adequate and she is less nauseated today. She did have a Zofran today but, had no vomiting only some nausea and she is attributing to constipation. Denies lightheadedness, palpitations, chest pain, cough, shortness of breath, abdominal pain, dysuria and calf pain. She tells me she feels tired. Has had Tramadol only 1 time today. She is sitting in the recliner and does not appear to be uncomfortable. Objective Data Objective Data Vital Signs: Vital Signs Temp Pulse Resp BP Pulse Ox O2 Del Method 98.4 F 82 16 112/51 L 97 Room Air 02/06/24 06:07 02/06/24 06:07 02/06/24 06:07 02/06/24 06:07 02/06/24 07:53 02/06/24 07:53 Oxygen Delivery Method Room Air Weight: 235 lb 10.786 oz Body Mass Index (BMI) 37.0 Intake & Output: Intake and Output for Last 24 Hours 02/04/24 02/05/24 02/06/24 23:59 23:59 23:59 Intake Total 440 / 740 2300 / 2300 540 / 540 Output Total 300 / 550 3100 / 3100 750 / 750 Balance 140 / 190 -800 / -800 -210 / -210 Lab / Micro Data 02/05/24 05:21 02/05/24 05:21 Labs: Laboratory Results - last 24 hr 02/05/24 11:15: POC Glucose 241 H 02/05/24 16:35: POC Glucose 198 H 02/05/24 20:40: POC Glucose 229 H 02/06/24 06:01: POC Glucose 183 H Physical Exam Const alert, oriented x3 and no apparent distress General Appearance: cooperative Resp normal respiratory effort and clear to auscultation bilaterally Effort and Inspection: Negative for tachypneic Cardio regular rate, regular rhythm and no gallops Cardio Narrative: No ectopy GI normal to inspection, nondistended, normoactive bowel sounds, soft to palpation and non-tender GI Narrative: No guarding with palpation. Extremity no calf tenderness Extremity Narrative: She has edema at the ankle of the LLE....actually a little better than it was at admission to rehab. General Extremity: edema Skin Wound Narrative: Wound remains covered by Mepilex dressing.......no erythema extending beyond the dressing. Assessment & Plan Assessment/Plan (1) Debility: (2) Status post total left knee replacement: (3) Acute blood loss as cause of postoperative anemia: (4) Diabetes mellitus type 2, noninsulin dependent: (5) Osteoarthritis: QUALIFIERS: Osteoarthritis location: multiple joints Osteoarthritis type: primary Qualified Code(s): M15.0 - Primary generalized (osteo)arthritis (6) Obesity (BMI 30-39.9): (7) Osteoporosis: QUALIFIERS: Osteoporosis type: age-related Presence of current pathological fracture: unspecified Qualified Code(s): M81.0 - Age-related osteoporosis without current pathological fracture (8) Constipation: QUALIFIERS: Constipation type: drug induced constipation Qualified Code(s): K59.03 - Drug induced constipation PLAN: Plan 1. Continue therapy 2. Increase Amaryl to 2 mg every morning. Continue the SSI. 3. Give a Dulcolax suppository after her last therapy session today 4. Continue Tramadol for pain PRN. Charges/Coding Visit Charges Inpatient E&M: 14970 Subs Hosp L2
[2024-02-06 11:50] LABS: Bedside Glucose 185 mg/dL (74-106)
--- NOTE | 2024-02-06 14:34 | CASEMGMT ---
Social Work Team meeting held with pt and KANU Fowler present. PT/OT/SN discussed pt's participation with therapy and that pt is progressing well. Pt lives at home alone and plans to return home and to previous level of independence at discharge. Pt is requesting home health care at time of dc and [facility] PT only is recommended. Pt has needed DME. SW discussed Medicare coverage of RU. Pt will continue with treatment plan at this time and will reteam next week. SANTOS Meza
[2024-02-06 17:07] LABS: Bedside Glucose 96 mg/dL (74-106)
[2024-02-06] MEDS: Bisacodyl 10 MG Suppository RC (17:48)
[2024-02-06 18:00] VITALS: BP 111/58; PULSE 77; RESP 17; TEMP 37; O2SAT 97
[2024-02-06] MEDS: Loratadine 10 MG Tablet PO (20:38)
[2024-02-06] MEDS: Atorvastatin Calcium 10 MG Tablet PO (20:38)
[2024-02-06 21:00] VITALS: PULSE 77; RESP 17; O2SAT 97
[2024-02-06 22:55] LABS: Bedside Glucose 175 mg/dL (74-106)
--- NOTE | 2024-02-07 00:19 | NURSING ---
ultram given at 2124, package did not scan and was not noted until tylenol was being assessed. ultram package was scanned and was verified and witnessed by rn at 0011
--- NOTE | 2024-02-07 02:22 | NURSING ---
Reviewed and agree with Stiven LEPE, documentation and assessment charting.
[2024-02-07] MEDS: Acetaminophen 500 MG Tablet 1000 MG PO ×3 (05:14→22:05)
[2024-02-07 06:00] VITALS: BP 112/49; PULSE 78; RESP 16; TEMP 36.6; O2SAT 94
[2024-02-07] MEDS: Insulin Lispro 100 UNIT/ML INSULN.PEN SC (06:50)
[2024-02-07 07:11] LABS: Bedside Glucose 154 mg/dL (74-106)
[2024-02-07] MEDS: Ondansetron ODT 4 MG Tablet PO ×2 (07:33→14:37)
[2024-02-07] MEDS: Calcium Carbonate 500 MG Tablet PO ×2 (08:19→17:38)
[2024-02-07] MEDS: Glimepiride 2 MG Tablet PO (08:19)
[2024-02-07] MEDS: Cholecalciferol (VIT D3) 25 MCG TABLET (1,000 UNITS) PO (08:19)
[2024-02-07] MEDS: metFORMIN (XR) 500 MG Tablet 1000 MG PO ×2 (08:20→17:37)
[2024-02-07] MEDS: Aspirin 81 MG TAB.CHEW PO ×2 (08:20→17:37)
[2024-02-07] MEDS: Meloxicam 7.5 MG Tablet PO ×2 (08:20→17:37)
[2024-02-07] MEDS: Glimepiride 1 MG Tablet PO (08:20)
[2024-02-07] MEDS: Lactobacillis Acidophilus 1 CAP PO (09:46)
[2024-02-07] MEDS: hydroCHLOROthiazide 25 MG Tablet PO (09:46)
[2024-02-07] MEDS: Senna/Docusate Sodium 1 Tablet 2 TABLET PO ×2 (09:46→22:06)
[2024-02-07] MEDS: Doxycycline 100 MG CAPSULE PO ×2 (09:46→22:05)
[2024-02-07] MEDS: Pantoprazole Sodium 40 MG Tablet PO (09:46)
[2024-02-07 11:23] LABS: Bedside Glucose 149 mg/dL (74-106)
[2024-02-07] MEDS: traMADol 50 MG Tablet PO (12:28)
--- NOTE | 2024-02-07 13:01 | CASEMGMT ---
Social Work SW updated pt that Medicare has allowed 9 days for inpatient rehab with anticipated dc on 02/12. Pt is agreeable to this and states she will notify her HCPOA. Pt requesting HHC upon discharge. CASPER will arrange. SANTOS Zapien
[2024-02-07 17:07] LABS: Bedside Glucose 87 mg/dL (74-106)
[2024-02-07 17:59] VITALS: BP 111/60; PULSE 72; RESP 18; TEMP 35.7; O2SAT 96
[2024-02-07] MEDS: Loratadine 10 MG Tablet PO (22:06)
[2024-02-07] MEDS: Atorvastatin Calcium 10 MG Tablet PO (22:07)
[2024-02-07 22:33] LABS: Bedside Glucose 107 mg/dL (74-106)
[2024-02-08] MEDS: Ondansetron ODT 4 MG Tablet PO ×3 (04:36→19:57)
--- NOTE | 2024-02-08 04:58 | NURSING ---
Mepilex removed. Blisters to lateral site where edge of mepilex was touching. Both sites covered with dry sterile dressing.
[2024-02-08 05:06] VITALS: BP 128/49; PULSE 71; RESP 18; TEMP 36.8; O2SAT 96
[2024-02-08] MEDS: Acetaminophen 500 MG Tablet 1000 MG PO ×3 (06:48→21:00)
[2024-02-08 07:31] LABS: Bedside Glucose 115 mg/dL (74-106)
[2024-02-08] MEDS: Doxycycline 100 MG CAPSULE PO ×2 (08:16→21:00)
[2024-02-08] MEDS: Glimepiride 1 MG Tablet PO (08:17)
[2024-02-08] MEDS: Senna/Docusate Sodium 1 Tablet 2 TABLET PO ×2 (08:17→21:00)
[2024-02-08] MEDS: Cholecalciferol (VIT D3) 25 MCG TABLET (1,000 UNITS) PO (08:17)
[2024-02-08] MEDS: Meloxicam 7.5 MG Tablet PO ×2 (08:18→17:11)
[2024-02-08] MEDS: Aspirin 81 MG TAB.CHEW PO ×2 (08:18→17:11)
[2024-02-08] MEDS: Glimepiride 2 MG Tablet PO (08:18)
[2024-02-08] MEDS: hydroCHLOROthiazide 25 MG Tablet PO (08:19)
[2024-02-08] MEDS: Calcium Carbonate 500 MG Tablet PO ×2 (08:20→17:10)
[2024-02-08] MEDS: Pantoprazole Sodium 40 MG Tablet PO (08:20)
[2024-02-08] MEDS: Lactobacillis Acidophilus 1 CAP PO (08:21)
[2024-02-08] MEDS: metFORMIN (XR) 500 MG Tablet 1000 MG PO ×2 (08:25→17:11)
[2024-02-08] MEDS: traMADol 50 MG Tablet PO (10:07)
[2024-02-08] MEDS: Insulin Lispro 100 UNIT/ML INSULN.PEN SC (11:47)
[2024-02-08 12:00] LABS: Bedside Glucose 224 mg/dL (74-106)
[2024-02-08 16:35] LABS: Bedside Glucose 73 mg/dL (74-106)
[2024-02-08 17:59] VITALS: BP 100/50; PULSE 83; RESP 17; TEMP 36.9; O2SAT 95
[2024-02-08] MEDS: Atorvastatin Calcium 10 MG Tablet PO (21:00)
[2024-02-08] MEDS: Loratadine 10 MG Tablet PO (21:00)
[2024-02-08 21:25] LABS: Bedside Glucose 137 mg/dL (74-106)
[2024-02-09] MEDS: Alendronate Sodium 70 MG Tablet 35 MG PO (05:41)
[2024-02-09] MEDS: Acetaminophen 500 MG Tablet 1000 MG PO ×3 (05:41→22:00)
[2024-02-09] MEDS: Ondansetron ODT 4 MG Tablet PO (05:50)
[2024-02-09 05:53] VITALS: BP 130/58; PULSE 69; RESP 18; TEMP 36.6; O2SAT 93
[2024-02-09 07:02] LABS: Bedside Glucose 132 mg/dL (74-106)
[2024-02-09] MEDS: metFORMIN (XR) 500 MG Tablet 1000 MG PO ×2 (07:34→16:27)
[2024-02-09] MEDS: Doxycycline 100 MG CAPSULE PO ×2 (07:34→22:00)
[2024-02-09] MEDS: hydroCHLOROthiazide 25 MG Tablet PO (07:34)
[2024-02-09] MEDS: Calcium Carbonate 500 MG Tablet PO ×2 (07:34→16:27)
[2024-02-09] MEDS: Glimepiride 1 MG Tablet PO (07:34)
[2024-02-09] MEDS: Aspirin 81 MG TAB.CHEW PO ×2 (07:34→16:27)
[2024-02-09] MEDS: Pantoprazole Sodium 40 MG Tablet PO (07:35)
[2024-02-09] MEDS: Cholecalciferol (VIT D3) 25 MCG TABLET (1,000 UNITS) PO (07:35)
[2024-02-09] MEDS: Meloxicam 7.5 MG Tablet PO ×2 (07:35→16:27)
[2024-02-09] MEDS: Lactobacillis Acidophilus 1 CAP PO (07:35)
[2024-02-09] MEDS: Glimepiride 2 MG Tablet PO (07:35)
[2024-02-09] MEDS: traMADol 50 MG Tablet PO ×2 (10:23→17:55)
[2024-02-09] MEDS: Insulin Lispro 100 UNIT/ML INSULN.PEN SC ×2 (11:45→22:00)
[2024-02-09 12:20] LABS: Bedside Glucose 224 mg/dL (74-106)
[2024-02-09 16:55] LABS: Bedside Glucose 112 mg/dL (74-106)
[2024-02-09 17:24] VITALS: BP 123/60; PULSE 90; RESP 16; TEMP 36.8; O2SAT 98
[2024-02-09 21:25] LABS: Bedside Glucose 169 mg/dL (74-106)
[2024-02-09] MEDS: Atorvastatin Calcium 10 MG Tablet PO (21:59)
[2024-02-09] MEDS: Loratadine 10 MG Tablet PO (22:00)
[2024-02-10] MEDS: Acetaminophen 500 MG Tablet 1000 MG PO ×3 (05:25→21:00)
[2024-02-10] MEDS: Ondansetron ODT 4 MG Tablet PO (05:43)
[2024-02-10 06:00] VITALS: BP 123/54; PULSE 78; RESP 15; TEMP 36.6; O2SAT 93
[2024-02-10 06:41] LABS: Bedside Glucose 124 mg/dL (74-106)
[2024-02-10] MEDS: Glimepiride 2 MG Tablet PO (07:39)
[2024-02-10] MEDS: hydroCHLOROthiazide 25 MG Tablet PO (07:39)
[2024-02-10] MEDS: Calcium Carbonate 500 MG Tablet PO ×2 (07:40→16:53)
[2024-02-10] MEDS: Lactobacillis Acidophilus 1 CAP PO (07:40)
[2024-02-10] MEDS: Meloxicam 7.5 MG Tablet PO (07:40)
[2024-02-10] MEDS: Cholecalciferol (VIT D3) 25 MCG TABLET (1,000 UNITS) PO (07:40)
[2024-02-10] MEDS: Aspirin 81 MG TAB.CHEW PO ×2 (07:40→16:53)
[2024-02-10] MEDS: Glimepiride 1 MG Tablet PO ×2 (07:40→12:26)
[2024-02-10] MEDS: Pantoprazole Sodium 40 MG Tablet PO (07:40)
[2024-02-10] MEDS: metFORMIN (XR) 500 MG Tablet 1000 MG PO ×2 (07:40→18:00)
[2024-02-10] MEDS: Doxycycline 100 MG CAPSULE PO (07:41)
[2024-02-10] MEDS: traMADol 50 MG Tablet PO ×2 (07:52→17:59)
--- NOTE | 2024-02-10 10:01 | PN_ITS ---
Subjective Subjective Today is day 7 of doxycycline. Afebrile VSS - Maintaining appropriate oxygen saturation on RA Oral intake - FOOD good FLUIDS fair Having 1-2 bowel movements daily. Blood sugar record was reviewed. The blood sugar last night at at bedtime was 169 (she received 1 unit of lispro) and the fasting today is 124. The lunchtime blood sugar yesterday was high at 224. Currently taking Glucophage 1000 mg twice daily and Amaryl 3 mg every morning. BS's tend to be higher at lunch and HS. They have improved. HGBA1C was 7.1 recently but, prior to that it was 7.[address] Saavedra wanted it less than 7.5 before he would do surgery. She admits to being noncompliant with diet at home. Has been on a higher dose of Amaryl in the past and tolerated this without any nausea or side effects. Discussed with nursing - no problems that need addressed Reviewed the THERAPY notes Medication list reviewed. Still requiring Zofran at least once daily for nausea. Food intake is improved over the weekend. Now taking 75 to 100% of her meals. She is complaining of nausea, mostly in the a.m., but, has not had any vomiting. She denies lightheadedness, chest pain, shortness of breath, abdominal pain, dysuria and calf tenderness. Denies shaking chills and night sweats. Objective Data Objective Data Vital Signs: Vital Signs Temp Pulse Resp BP Pulse Ox O2 Del Method 97.8 F 78 15 123/54 H 93 Room Air 02/10/24 06:00 02/10/24 06:00 02/10/24 06:00 02/10/24 06:00 02/10/24 06:00 02/10/24 06:00 Oxygen Delivery Method Room Air Weight: 235 lb 10.786 oz Body Mass Index (BMI) 37.0 Intake & Output: Intake and Output for Last 24 Hours 02/08/24 02/09/24 02/10/24 23:59 22:59 23:59 Intake Total 1240 / 1240 1410 / 1410 200 / 200 Output Total 1300 / 1300 1200 / 1450 500 / 500 Balance -60 / -60 210 / -40 -300 / -300 Lab / Micro Data 02/05/24 05:21 02/05/24 05:21 Labs: Laboratory Results - last 24 hr 02/09/24 11:44: POC Glucose 224 H 02/09/24 16:27: POC Glucose 112 H 02/09/24 21:02: POC Glucose 169 H 02/10/24 06:17: POC Glucose 124 H Micro: Microbiology 02/06/24 18:34 Stool Stool Occult Blood (ANITRA) - Final Physical Exam Const alert, oriented x3 and no apparent distress General Appearance: cooperative HEENT Mouth: dry mucous membranes Resp normal respiratory effort, normal air movement and clear to auscultation bilaterally Effort and Inspection: Negative for tachypneic Cardio regular rate, regular rhythm and no gallops GI GI Narrative: Soft, nondistended, nontender to palpation. Bowel sounds are active in all quadrants. They are not hyperactive. Denies diarrhea Extremity no calf tenderness Extremity Narrative: Pitting edema of the LLE distal to the knee. No edema of the R distal LE. Skin Wound Narrative: The knee incision is intact with no dehiscence. There is no DC from the wound and there is no nellie-incisional erythema. The distal incision is also intact with no dehiscence. There is no DC from the incision and no nellie-incisional erythema. She has a linear area to the medial side of the incision that has a scab.......previously was superficially open but, now no opening. This is due to reaction to tape. Psych affect normal Assessment & Plan Assessment/Plan (1) Debility: (2) Status post total left knee replacement: (3) Acute blood loss as cause of postoperative anemia: (4) Diabetes mellitus type 2, noninsulin dependent: (5) Constipation: QUALIFIERS: Constipation type: drug induced constipation Q ualified Code(s): K59.03 - Drug induced constipation PLAN: Plan 1. Continue therapy 2. Apply SCD to the left lower extremity at night. The NEVILLE hose are very tight and rolled down. This creates a tourniquet like effect on the left lower extremity. Will change to an Son wrap and have the nurses rapid to above the knee. Continue aspirin 81 mg twice daily as per orthopedics. 3. BMP/HH in a.m. 4. Increase Amaryl to 4 mg daily in the a.m. 5. DC doxycycline. She has had 1 week of this medication for prophylaxis and she denies any hx of MRSA. It is causing N/V so will discontinue at this time. 6. Hold Meloxicam in light of N/V - has tolerated NSAID's in the past with no N/V. Charges/Coding Visit Charges Inpatient E&M: 69115 Subs Hosp L1
[2024-02-10 12:15] LABS: Bedside Glucose 129 mg/dL (74-106)
[2024-02-10 17:23] LABS: Bedside Glucose 78 mg/dL (74-106)
[2024-02-10 18:00] VITALS: BP 133/62; PULSE 77; RESP 16; TEMP 37.2; O2SAT 99
[2024-02-10] MEDS: Loratadine 10 MG Tablet PO (20:59)
[2024-02-10] MEDS: Insulin Lispro 100 UNIT/ML INSULN.PEN SC (20:59)
[2024-02-10 21:00] LABS: Bedside Glucose 185 mg/dL (74-106)
[2024-02-10] MEDS: Atorvastatin Calcium 10 MG Tablet PO (21:00)
[2024-02-10 22:00] VITALS: PULSE 77; RESP 16; O2SAT 99
[2024-02-11 05:54] LABS: Hematocrit 30.2 % (37-47); Hemoglobin 9.4 g/dL (12.0-15.0)
[2024-02-11 06:00] VITALS: BP 137/73; PULSE 78; RESP 16; TEMP 36.8; O2SAT 96
[2024-02-11 06:27] LABS: Anion Gap 5 (5-15); BUN 14 mg/dL (7-18); BUN/Creat Ratio 17.8 RATIO (10-20); Calcium,Total 9.1 mg/dL (8.5-10.1); Chloride 105 mmol/L (98-107); Creatinine, Serum 0.78 mg/dL (0.55-1.02); EST Glomerular Filtration Rate 77 mL/min (>60); Est Glom Filt Rate - Afr Amer 93 mL/min (>60); Estimated Creatinine Clearance 78.61 ml/min; Glucose 98 mg/dL (74-106); Potassium 4.1 mmol/L (3.5-5.1); Sodium Level 138 mmol/L (136-145)
[2024-02-11] MEDS: Acetaminophen 500 MG Tablet 1000 MG PO ×3 (06:39→21:00)
[2024-02-11 07:00] LABS: Bedside Glucose 123 mg/dL (74-106)
[2024-02-11] MEDS: metFORMIN (XR) 500 MG Tablet 1000 MG PO ×2 (07:51→16:11)
[2024-02-11] MEDS: Glimepiride 4 MG Tablet PO (07:51)
[2024-02-11] MEDS: Aspirin 81 MG TAB.CHEW PO ×2 (07:51→16:11)
[2024-02-11] MEDS: hydroCHLOROthiazide 25 MG Tablet PO (07:52)
[2024-02-11] MEDS: Lactobacillis Acidophilus 1 CAP PO (07:52)
[2024-02-11] MEDS: Cholecalciferol (VIT D3) 25 MCG TABLET (1,000 UNITS) PO (07:52)
[2024-02-11] MEDS: Calcium Carbonate 500 MG Tablet PO ×2 (07:52→16:11)
[2024-02-11] MEDS: Psyllium 1 PACKET PO ×2 (07:52→21:00)
[2024-02-11] MEDS: Pantoprazole Sodium 40 MG Tablet PO (07:52)
[2024-02-11] MEDS: Senna/Docusate Sodium 1 Tablet 2 TABLET PO ×2 (07:53→21:00)
[2024-02-11] MEDS: traMADol 50 MG Tablet PO ×2 (07:56→23:27)
[2024-02-11] MEDS: Ondansetron ODT 4 MG Tablet PO (09:22)
--- NOTE | 2024-02-11 11:04 | CASEMGMT ---
Social Work SW spoke with pt to finalize DC plans. Confirmed DC 02/12, home alone. Pt confirmed she prefers HHC vs OP therapy d/t driving restrictions. IDT recommending PT only. Pt agreed and has no preference for agency. SW provided printed list of skilled HHC agencies with quality and resource data via [employer]. Pt prefers [facility]. Pt has no DME needs. Friend can transport. SW phoned referral to [facility]. Plan: DC home alone 02/12, [facility] PT Shannon Gonsalez, [employer]
[2024-02-11 12:00] LABS: Bedside Glucose 127 mg/dL (74-106)
--- NOTE | 2024-02-11 13:32 | PN_ITS ---
Subjective Subjective Afebrile VSS - Maintaining appropriate oxygen saturation on RA Oral intake - FOOD good FLUIDS good The blood sugar record was reviewed. Blood sugar at at bedtime was 185. The fasting today is 123 and the lunchtime sugar was 127. No hypoglycemia but she did have a blood sugar of 78 yesterday at supper. She had 1 unit of lispro at at bedtime last night. Discussed with nursing - no problems that need addressed Reviewed the THERAPY notes Medication list reviewed. Celia tells me that when she does therapy she gets somewhat nauseated in the morning and she had a Zofran today. She had no emesis and she is taking 75-100% of her meals. Pain is adequately controlled. She denies lightheadedness, chest pain, shortness of breath, cough, abdominal pain, dysuria and calf pain. All lab drawn this morning was personally reviewed. Hemoglobin is 9.4 which is down from 10 on 02/04/2024 but she is better hydrated. The BUN today is 14 which is down from 25 on 02/05/2024. Creatinine is 0.78 and within her baseline. Sodium is now normal at 138 and the potassium is 4.1. Stool for occult blood was negative. Objective Data Objective Data Vital Signs: Vital Signs Temp Pulse Resp BP Pulse Ox O2 Del Method 98.3 F 78 16 137/73 H 96 Room Air 02/11/24 06:00 02/11/24 06:00 02/11/24 06:00 02/11/24 06:00 02/11/24 06:00 02/11/24 06:00 Oxygen Delivery Method Room Air Weight: 235 lb 10.786 oz Body Mass Index (BMI) 37.0 Intake & Output: Intake and Output for Last 24 Hours 02/09/24 02/10/24 02/11/24 22:59 23:59 23:59 Intake Total 1410 / 1410 1260 / 1260 940 / 940 Output Total 1200 / 1450 950 / 950 350 / 350 Balance 210 / -40 310 / 310 590 / 590 Lab / Micro Data 02/11/24 05:26 02/11/24 05:26 Labs: Laboratory Results - last 24 hr 02/10/24 16:51: POC Glucose 78 02/10/24 20:38: POC Glucose 185 H 02/11/24 05:26: Hgb 9.4 L, Hct 30.2 L, Sodium 138, Potassium 4.1, Chloride 105, Carbon Dioxide 28.0, Anion Gap 5, BUN 14, Creatinine 0.78, Estim Creat Clear Calc 78.61, Est GFR (MDRD) Af Amer 93, Est GFR (MDRD) Non-Af 77, BUN/Creatinine Ratio 17.8, Glucose 98, Calcium 9.1 02/11/24 06:41: POC Glucose 123 H 02/11/24 11:42: POC Glucose 127 H Micro: Microbiology 02/06/24 18:34 Stool Stool Occult Blood (ANITRA) - Final Physical Exam Const no apparent distress General Appearance: cooperative Resp normal respiratory effort, normal air movement and clear to auscultation bilaterally Effort and Inspection: Negative for tachypneic Cardio regular rate, regular rhythm and no gallops GI GI Narrative: Soft, nondistended, nontender to palpation. Bowel sounds are active in all quadrants. They are not hyperactive. Denies diarrhea Extremity no calf tenderness Extremity Narrative: She has edema of the left lower extremity. The Son wrap is much more comfortable for her than the knee-high NEVILLE hose which kept rolling down. General Extremity: edema Skin Wound Narrative: The incision is intact with no dehiscence. There is a small amount of serous drainage. No purulent drainage. No significant nellie-incisional erythema. Psych affect normal Assessment & Plan Assessment/Plan (1) Debility: (2) Status post total left knee replacement: (3) Acute blood loss as cause of postoperative anemia: (4) Diabetes mellitus type 2, noninsulin dependent: (5) Constipation: QUALIFIERS: Constipation type: drug induced constipation Q ualified Code(s): K59.03 - Drug induced constipation PLAN: Plan 1. Continue therapy 2. Discontinue the sliding scale insulin. Continue metformin 1000 mg twice daily and Amaryl 4 mg in the AM. Charges/Coding Visit Charges Inpatient E&M: 65589 [facility] Hosp L1
[2024-02-11 17:04] LABS: Bedside Glucose 79 mg/dL (74-106)
[2024-02-11 18:00] VITALS: BP 127/66; PULSE 81; RESP 16; TEMP 36.6; O2SAT 100
[2024-02-11] MEDS: Atorvastatin Calcium 10 MG Tablet PO (21:00)
[2024-02-11] MEDS: Loratadine 10 MG Tablet PO (21:01)
[2024-02-11 22:51] LABS: Bedside Glucose 124 mg/dL (74-106)
[2024-02-12 05:39] VITALS: BMI 37.0
[2024-02-12] MEDS: Acetaminophen 500 MG Tablet 1000 MG PO ×3 (05:42→21:27)
[2024-02-12] MEDS: Ondansetron ODT 4 MG Tablet PO (05:46)
[2024-02-12 06:00] VITALS: BP 127/61; PULSE 79; RESP 18; TEMP 36.7; O2SAT 96
[2024-02-12 06:40] LABS: Bedside Glucose 140 mg/dL (74-106)
[2024-02-12] MEDS: Psyllium 1 PACKET PO ×2 (08:06→21:27)
[2024-02-12] MEDS: hydroCHLOROthiazide 25 MG Tablet PO (08:07)
[2024-02-12] MEDS: Pantoprazole Sodium 40 MG Tablet PO (08:07)
[2024-02-12] MEDS: Lactobacillis Acidophilus 1 CAP PO (08:08)
[2024-02-12] MEDS: Glimepiride 4 MG Tablet PO (08:08)
[2024-02-12] MEDS: Cholecalciferol (VIT D3) 25 MCG TABLET (1,000 UNITS) PO (08:08)
[2024-02-12] MEDS: metFORMIN (XR) 500 MG Tablet 1000 MG PO ×2 (08:08→17:04)
[2024-02-12] MEDS: Calcium Carbonate 500 MG Tablet PO ×2 (08:08→17:04)
[2024-02-12] MEDS: Aspirin 81 MG TAB.CHEW PO ×2 (08:08→17:04)
[2024-02-12] MEDS: traMADol 50 MG Tablet PO ×2 (08:11→17:04)
--- NOTE | 2024-02-12 11:19 | PCM.DC.SUM ---
Providers Date of Admission: 02/04/24 Date of Discharge: 02/13/24 Primary Care Physician: Dr. Gabriela Meredith DO Reason For Visit: LEFT TOTAL KNEE REPLACEMENT Diagnosis Discharge Diagnosis (1) Debility: Status: Acute Code(s): R53.81 - Other malaise (2) Status post total left knee replacement: Status: Acute Code(s): Z96.652 - Presence of left artificial knee joint (3) Acute blood loss as cause of postoperative anemia: Status: Acute Code(s): D62 - Acute posthemorrhagic anemia Plan: Hemoglobin is stable at 9.4 prior to discharge (4) Diabetes mellitus type 2, noninsulin dependent: Status: Chronic Code(s): E11.9 - Type 2 diabetes mellitus without complications Plan: Blood sugars were uncontrolled at admission to rehab. Glimepiride was increased from 1 mg to 4 mg. Blood sugars have been improving and she is being discharged on 3 mg of glimepiride daily. She was instructed to check her blood sugars before meals and at bedtime for the next 5 to 7 days and if her blood sugars continue to come down, carole if any blood sugars < 80 she will decrease the glimepiride to 2 mg daily. She will continue metformin 1000 mg twice daily. (5) Constipation: Status: Resolved Code(s): K59.00 - Constipation, unspecified Qualifiers: Constipation type: drug induced constipation Qualified Code(s): K59.03 - Drug induced constipation Plan 1. Discharge home on 02/13/2024. 2. Home health care with [facility] home health 3. She will follow-up with Dr. Saavedra as previously arranged to have moris removed. 4. She will continue aspirin 81 mg twice daily to complete 4 weeks of postoperative DVT prophylaxis per orthopedics. 5. Resume doxycycline and meloxicam at discharge as holding them has not seemed to improve her nausea. Medications at Discharge Home Medications Lactobacillus acidophilus 10 billion cell capsule (Probiotic) 10,000 mmu cells PO DAILY supplement 09/19/21 albuterol sulfate 90 mcg/actuation aerosol inhaler (Ventolin HFA) 2 puff inhalation Q6H PRN ASTHMA 09/19/21 alendronate 35 mg tablet 35 mg PO LEY Bone protection 09/19/21 calcium 600 mg (as carbonate)-vitamin D3 10 mcg (400 unit) tablet (Calcium 600 + D(3)) 1 tab PO BID supplement 09/19/21 coenzyme Q10 100 mg capsule (CoQ-10) 100 mg PO BID supplement 09/19/21 hydrochlorothiazide 25 mg tablet 25 mg PO DAILY BP 09/19/21 metformin 500 mg tablet,extended release 24 hr 1,000 mg PO BID Glucose 09/19/21 omeprazole 40 mg capsule,delayed release 40 mg PO DAILY GERD 09/19/21 rosuvastatin 5 mg tablet 5 mg PO DAILY Cholestrol 09/19/21 cetirizine 10 mg capsule (Zyrtec) 10 mg PO QHS Allergies 01/08/24 cholecalciferol (vitamin D3) 10 mcg (400 unit) tablet (Vitamin D3) 10 mcg PO DAILY supplement 01/08/24 pseudoephedrine-guaifenesin ER 60 mg-600 mg tablet,extend release 12hr (Mucinex D) 1 tab PO Q12H PRN cold symptoms 01/08/24 doxycycline monohydrate 100 mg capsule 100 mg PO BID Antibiotic 14 days #28 caps 02/04/24 acetaminophen 500 mg tablet 1,000 mg (2 x 500 mg) PO Q8 Pain 14 days #84 tabs 02/12/24 aspirin 81 mg capsule 81 mg PO BIDCM Heart health 30 days #60 caps 02/12/24 glimepiride 1 mg tablet 3 mg (3 x 1 mg) PO BREAKFAST #90 tabs 02/12/24 meloxicam 7.5 mg tablet 7.5 mg PO BIDCM Joint pain 30 days #60 tabs 02/12/24 ondansetron 4 mg disintegrating tablet 4 mg PO Q6H PRN Nausea/Vomiting #10 tabs 02/12/24 tramadol 50 mg tablet 50 mg PO Q6H PRN PRN Pain Score 4-10 7 days #20 tabs 02/12/24 Hospital Course Operations total knee replacement (02/03/[address] Manoj Saavedra) Procedures None Summary of Care Provided Minutes Spent on Discharge: 30 Hospital Course: ROSALINA NOE, is a 73 YO F with a past medical history of diabetes mellitus type 2, osteoarthritis, asthma, osteoporosis, GERD, hypertension, osteoporosis, chronic low back pain, irritable bowel syndrome and obesity whom had a L TKA by Dr. Saavedra on 02/03/2024. Postoperatively the hemoglobin dropped to 10 from acute surgical blood loss. There were no other significant postoperative complications. She lives alone and did not feel safe going home at [place]. She was transferred to the acute inpt rehab unit at [facility] on 02/04/24 for 3 hours of therapy daily to restore function/independence at or near her level prior to the surgery. Blood sugars were uncontrolled at admission to rehab, more likely than not due to stress, pain and dietary non-compliance. Most recent HGBA1C was 7.1 but, prior to that the HGBA1C was 7.8 and she worked hard to get the blood sugars controlled so that Dr. Saavedra would do her surgery. She was taking glimepiride 1 mg daily and metformin 1000 mg twice daily at admission to rehab. The glimepiride dose was increased to get the blood sugars under control and at 1 point she was taking 4 mg every morning. The blood sugars have come under good control. The blood sugar prior to supper was less than 80 on 02/11/24 and the dose was decreased to 3 mg in the AM at [place]. She was instructed to check her blood sugars before meals and at bedtime for 5 to 7 days following discharge. If she has any blood sugars less than 80 she will decrease the dose of glimepiride to 2 mg daily. Conversely if her blood sugars are greater than 180 she will more closely adhere to the diabetic diet and if consistently > 180 she will go back up to 4 mg daily. I stressed the importance of good blood sugar control to decrease the risk for infection and improve wound healing. Rosalina had complaints of nausea and had a few episodes of emesis while on rehab. Oxycodone was changed to Tramadol and the nausea persisted. Meloxicam was held and the nausea persisted. Doxycycline was held and still the nausea persisted. She is still taking PRN Zofran at the time of discharge. She tells me that she has nausea at home as well. She also has a history of irritable bowel syndrome. I suspect the nausea has more to do with IBS, stress and pain than with the medications. Doxycycline and Meloxicam were restarted at [place]. She has been refusing stool softeners so they were not continued at [place]. Rosalina did well in therapy. At the time of IL she is able to do all ADL's independently with adaptive equipment as needed for LB dressing and LB bathing. She is supervision for tub/shower transfer for the first 7-14 days because most falls in the home happen in the BR. She has 91 degrees of flexion in the Left knee while sitting and 105 degrees while supine. She is ambulating up to 350 feet with a wheeled walker at mod I. She can ambulate 150 feet with a cane and standby assist/contact-guard assist. She has a ascended/descended 12 steps with 2 handrails at standby assist and step to pattern....she has increased pain with reciprocal pattern. Rosalina will F/U with Dr. Saavedra as previously scheduled and she has an appt to F/U with Dr. Meredith, her PCP, on 02/20/24 at 1 PM. Physical Exam Const no apparent distress General Appearance: cooperative Resp normal respiratory effort, normal air movement and clear to auscultation bilaterally Effort and Inspection: Negative for tachypneic Cardio regular rate, regular rhythm and no gallops GI GI Narrative: Soft, nondistended, nontender to palpation. Bowel sounds are active in all quadrants. They are not hyperactive. Denies diarrhea Extremity no calf tenderness Extremity Narrative: She has edema of the left lower extremity. The Son wrap is much more comfortable for her than the knee-high NEVILLE hose which kept rolling down. General Extremity: edema Skin Wound Narrative: The incision is intact with no dehiscence. No purulent drainage. No significant nellie-incisional erythema. Swelling is improving in the distal LLE. Psych affect normal Weight / BMI Weight Weight: 235 lb 10.786 oz Body Mass Index (BMI) 37.0 ABG / Lab / Microbiology Data 02/11/24 05:26 02/11/24 05:26 Laboratory: Laboratory Results - last 24 hr 02/11/24 11:42: POC Glucose 127 H 02/11/24 16:29: POC Glucose 79 02/11/24 20:58: POC Glucose 124 H 02/12/24 05:42: POC Glucose 140 H Microbiology: Microbiology 02/06/24 18:34 Stool Stool Occult Blood (ANITRA) - Final Meaningful Use Info Meaningful Use Meaningful Use Diagnoses (Choose all that apply): None applicable Ischemic Stroke Statin Dosing Therapy Reference: STATIN DOSE THERAPY REFERENCE: * Patients > 75 years receive moderate or high dose statin therapy. * Patients 75 years or YOUNGER should receive HIGH intensity statin dose unless contraindicated. You will be required to document reason for non-treatment if statin daily dose does not meet guidelines. HIGH DOSE STATIN THERAPY DAILY Atorvastatin > than or = to 40 mg Rosuvastatin > than or = to 20 mg Amlodipine + Atorvastatin > than or = to 2.5/40 mg Ezetimibe + Simvastatin 10/80 mg Simvastatin 80mg Discharge Plan Admission Admit Date/Time: 02/04/24 15:00 Primary Reason for Your Visit: Debility due to L TKA Attending Provider: Macy Calderon Primary Care Provider: Gabriela Meredith Instructions Patient Instructions: Caring for Your Incision Additional Instructions / Restrictions: 1. Check the incision every day. If there is increasing redness around the incision, discharge from the incision, increased swelling around the incision or if the knee is increasingly warm to touch notify Dr. Saavedra. Also inform Dr. Saavedra if you are having fevers, night sweats or shaking chills. you are taking aspirin 81 mg twice a day for prophylaxis against blood clots in your legs. If you develop sudden onset of chest pain or shortness of breath call 911 or go to the ER. 2. You have had some nausea. Nausea is associated with some of the4 medications you have been taking including Meloxicam and doxycycline. Doxycycline is an antibiotic. Dr. Saavedra placed you on this antibiotic because your blood sugars had not been adequately controlled and this increases your risk for infection postoperatively. We have tried discontinuing the meloxicam and the doxycycline and there really has not seemed to be much change in your nausea. I am going to continue the doxycycline and the meloxicam at discharge. I have given you a prescription for Zofran to have at home. Zofran is the antinausea medication you have been given while on rehab. 3. Your blood sugars were uncontrolled at presentation to rehab. We have had to go up on the dose of the glimepiride. You were previously taking 1 mg daily and now you are taking 3 mg daily. I have given you a new prescription. In all likelihood the blood sugars have been elevated secondary to the recent increase in stress with surgery and pain. They have significantly improved. I recommend checking your blood sugars before meals and at bedtime for the next 5 to 7 days. If blood sugars are less than 80 then decrease the dose to 2 mg daily. It is VERY important to control blood sugars as well as possible after a surgery. Blood sugars > 180 are associated with increased risk of infection and poor wound healing. 4. Ice and ambulation both help with pain control. Make sure you do not sit for > 1 hour without getting up and talking a walk around the house to keep the joint from getting stiff and more painful. Walking also helps to decrease the risk for blood clots post-op. 5. IF you have any questions after you leave rehab OR you need one of your medications please do not hesitate to call me. OFFICE: [phone] CELL: [phone] NURSES STATION ON REHAB: [phone] Discharge Orders/Prescriptions Prescriptions: New glimepiride 1 mg tablet 3 mg PO BREAKFAST Qty: 90 0RF Rx Instructions: Take 3 tabs with breakfast daily ondansetron 4 mg Tablet,Disintegrating 4 mg PO Q6H PRN (Reason: Nausea/Vomiting) Qty: 10 0RF tramadol 50 mg Tablet 50 mg PO Q6H PRN PRN (Reason: Pain Score 4-10) 7 Days Qty: 20 0RF Continued omeprazole 40 mg capsule,delayed release(DR/EC) 40 mg PO DAILY alendronate 35 mg tablet 35 mg PO LEY Patient Comments: TAKE 1 TABLET BY MOUTH ONCE WEEKLY hydrochlorothiazide 25 mg tablet 25 mg PO DAILY metformin 500 mg tablet extended release 24 hr 1,000 mg PO BID coenzyme Q10 [CoQ-10] 100 mg Capsule 100 mg PO BID rosuvastatin 5 mg tablet 5 mg PO DAILY calcium carbonate-vitamin D3 [Calcium 600 + D(3)] 600 mg-10 mcg (400 unit) Tablet 1 tab PO BID Probiotic 10 billion cell Capsule 10,000 mmu cells PO DAILY albuterol sulfate [Ventolin HFA] 90 mcg/actuation Hfa Aerosol Inhaler 2 puff INHALATION Q6H PRN (Reason: ASTHMA) Zyrtec 10 mg capsule 10 mg PO QHS cholecalciferol (vitamin D3) [Vitamin D3] 10 mcg (400 unit) tablet 10 mcg PO DAILY pseudoephedrine-guaifenesin [Mucinex D] 60-600 mg tablet extended release 12 hr 1 tab PO Q12H PRN (Reason: cold symptoms) doxycycline monohydrate 100 mg Capsule 100 mg PO BID 14 Days Qty: 28 0RF Rx Instructions: Take for 2 weeks postoperatively with finish date on February 17, 2024 acetaminophen 500 mg Tablet 1,000 mg PO Q8 14 Days Qty: 84 0RF meloxicam 7.5 mg Tablet 7.5 mg PO BIDCM 30 Days Qty: 60 0RF Rx Instructions: Do not take any other nonsteroidal anti-inflammatories while using meloxicam/Mobic. aspirin 81 mg capsule 81 mg PO BIDCM 30 Days Qty: 60 0RF Rx Instructions: Take 81 mg aspirin twice daily for 4 weeks postoperatively for DVT prophylaxis. OK to stop on 03/03/24. Discontinued glimepiride 1 mg tablet 1 mg PO DAILY oxycodone 5 mg Tablet 5 - 10 mg PO Q4H PRN PRN (Reason: Pain Score 4-10) 7 Days Qty: 0 0RF Rx Instructions: Take 1-2 tablets every 4 hours as needed for breakthrough pain. sennosides-docusate sodium [Stimulant Laxative Plus] 8.6-50 mg Tablet 2 tab PO BID 3 Days Qty: 12 0RF Rx Instructions: Take until first bowel movement, then as needed Referrals / Follow Up: Gabriela Meredith DO [Primary Care Provider] - 02/20/24 1:00 pm Johana Sellers PA [Med Staff - Adv Practice Prof] - 02/17/24 8:30 am Disposition Disposition (needs filled in before D/C Order can be placed): Home Health Service Charges/Coding Visit Charges Inpatient E&M: 08620 Disch Hosp
[2024-02-12 11:23] LABS: Bedside Glucose 102 mg/dL (74-106)
[2024-02-12 17:00] LABS: Bedside Glucose 100 mg/dL (74-106)
[2024-02-12 17:32] VITALS: BP 114/50; PULSE 74; RESP 16; TEMP 36.8; O2SAT 97
[2024-02-12] MEDS: Atorvastatin Calcium 10 MG Tablet PO (21:26)
[2024-02-12] MEDS: Loratadine 10 MG Tablet PO (21:26)
[2024-02-12] MEDS: Senna/Docusate Sodium 1 Tablet 2 TABLET PO (21:27)
[2024-02-12 22:00] VITALS: PULSE 74; RESP 15; O2SAT 96
[2024-02-12 22:51] LABS: Bedside Glucose 132 mg/dL (74-106)
[2024-02-13 06:00] VITALS: BP 145/61; PULSE 73; RESP 16; TEMP 36.6; O2SAT 95
[2024-02-13 06:48] LABS: Bedside Glucose 114 mg/dL (74-106)
[2024-02-13] MEDS: Aspirin 81 MG TAB.CHEW PO (07:39)
[2024-02-13] MEDS: Acetaminophen 500 MG Tablet 1000 MG PO (07:39)
[2024-02-13] MEDS: Calcium Carbonate 500 MG Tablet PO (07:39)
[2024-02-13] MEDS: hydroCHLOROthiazide 25 MG Tablet PO (07:39)
[2024-02-13] MEDS: Lactobacillis Acidophilus 1 CAP PO (07:40)
[2024-02-13] MEDS: Pantoprazole Sodium 40 MG Tablet PO (07:40)
[2024-02-13] MEDS: Cholecalciferol (VIT D3) 25 MCG TABLET (1,000 UNITS) PO (07:40)
[2024-02-13] MEDS: Senna/Docusate Sodium 1 Tablet 2 TABLET PO (07:40)
[2024-02-13] MEDS: traMADol 50 MG Tablet PO (07:40)
[2024-02-13] MEDS: Psyllium 1 PACKET PO (07:40)
[2024-02-13] MEDS: metFORMIN (XR) 500 MG Tablet 1000 MG PO (07:40)
[2024-02-13] MEDS: Glimepiride 1 MG Tablet 3 MG PO (07:40)
[2024-02-13 11:13] LABS: Bedside Glucose 114 mg/dL (74-106)
[2024-02-13 14:21] VITALS: BP 145/61; PULSE 73; RESP 16; TEMP 36.6; O2SAT 95
== END 2024-02-13 14:28 | disposition home health service (06) | DRG 470 ==
PROVIDERS: Admitting Provider Internal Medicine; Referring Provider Internal Medicine; Visit Provider Internal Medicine
DX: Z47.1 Aftercare following joint replacement surgery (principal); D62 Acute posthemorrhagic anemia; E11.9 Type 2 diabetes mellitus without complications; I10 Essential (primary) hypertension; J45.909 Unspecified asthma, uncomplicated; D63.8 Anemia in other chronic diseases classified elsewhere; E66.9 Obesity, unspecified; E78.00 Pure hypercholesterolemia, unspecified; K58.9 Irritable bowel syndrome, unspecified; Z79.4 Long term (current) use of insulin; M15.0 Primary generalized (osteo)arthritis; K21.9 Gastro-esophageal reflux disease without esophagitis; K59.03 Drug induced constipation; R25.1 Tremor, unspecified; M81.0 Age-related osteoporosis without current pathological fracture; Z79.83 Long term (current) use of bisphosphonates; Z96.652 Presence of left artificial knee joint; Z79.84 Long term (current) use of oral hypoglycemic drugs; Z79.82 Long term (current) use of aspirin; Z68.37 Body mass index [BMI] 37.0-37.9, adult; Z79.899 Other long term (current) drug therapy; T50.905A Adverse effect of unspecified drugs, medicaments and biological substances, initial encounter; Z91.119 Patient's noncompliance with dietary regimen due to unspecified reason
CPT/HCPCS: 36415; 73560; 80048; 80053; 80061; 82274; 82306; 82962; 83036; 83735; 84100; 84443; 85014; 85018; 85025; 85027; 87081; 88305; 88311; 93005; 94668; 96365; 96366; 97110; 97116; 97162; 97166; 97530; 97535; 97802; 99221; 99252; C1776; J7120; A4216; G0378; G0463; J2405

== ENCOUNTER → 2025-01-12 | Outpatient (CLI) | payer MEDICARE, OTHER, SELFPAY ==
--- NOTE | 2025-01-12 08:01 | BI_ITS ---
EXAM: SCRN MAMM (CAD)W/GLEN BILAT DATE: 01/12/2025 CLINICAL HISTORY: F, Age 74 y/o , SCREENING No family history. TECHNIQUE: Procedure Code: [id number] Modality: MG Procedure: SCRN MAMM (CAD)W/GLEN BILAT COMPARISON: Prior exam(s) dated January 09, 2024.. FINDINGS: TISSUE DENSITY: The breasts are almost entirely fatty. Bilateral Breast Mammographic Findings: No significant masses, calcifications or other abnormalities are identified. Once again, there is asymmetry of breast tissue were more breast tissue is seen in the upper lateral aspect of the right breast as compared to the left side. Stable bilateral axillary lymph nodes. No suspicious masses, areas of developing architectural distortion, or suspicious calcifications. There has been no significant interval change. BI/SCRN MAMM (CAD)W/GLEN BILAT IMPRESSION: Stable bilateral screening mammogram. OVERALL FINAL ASSESSMENT BI-RADS 2: BENIGN RECOMMENDATION: Routine annual follow-up in 1 Year Additional Recommendation none A letter with findings and recommendations will be mailed to the patient. Reading Location: [id number]
== END | disposition home or self-care (01) ==
LOC: OPBI 07:59
DX: Z12.31 Encounter for screening mammogram for malignant neoplasm of breast (principal)
CPT/HCPCS: 77063; 77067